=== PATIENT | male | born 1940 | race Asian ===

== ENCOUNTER → 2016-12-14 | Outpatient (CLI) | payer MEDICARE, MEDICAID | LOC: RAD 08:10 | PROVIDERS: ATTEND Physician Assistant | DX: R94.5 Abnormal results of liver function studies (principal) | CPT/HCPCS: 76705; 93976 ==

== ENCOUNTER → 2017-01-23 | Outpatient (CLI) | payer MEDICARE, MEDICAID ==
[2017-01-23 10:37] LABS: ANION GAP 12 (5-19); BLOOD UREA NITROGEN 14 mg/dL (7-20); CALCIUM 9.2 mg/dL (8.4-10.2); CARBON DIOXIDE 27 mmol/L (22-30); CHLORIDE 104 mmol/L (98-107); CHOLESTEROL 139.42 mg/dL (0-200); CREATININE RESULT 0.95 mg/dL (0.52-1.25); Direct HDL 45 mg/dL (>40); GLUCOSE 119 mg/dL (75-110); POTASSIUM 4.4 mmol/L (3.6-5.0); SODIUM 142.8 mmol/L (137-145); TRIGLYCERIDES 94 mg/dL (<150)
[2017-01-23 10:47] LABS: DIRECT LDL 70 mg/dL (<100)
== END ==
LOC: OD 09:33
PROVIDERS: ATTEND Internal Medicine Cardiovascular Disease
DX: I10 Essential (primary) hypertension (principal); E78.00 Pure hypercholesterolemia, unspecified; I25.10 Atherosclerotic heart disease of native coronary artery without angina pectoris
CPT/HCPCS: 36415; 80048; 80061

== ENCOUNTER → 2017-02-07 | Outpatient (CLI) | payer MEDICARE, MEDICAID ==
[~2017-02-07] MED LIST: REGADENOSON INJ 0.4 MG/5 ML DISP.SYRIN IV ONE
--- NOTE | 2017-02-08 10:58 | RADIOLOGY REPORT ---
STRESS TEST REPORT PATIENT NAME: KELSI SIDHU ROOM#: DATE OF SERVICE: 02/07/2017 AGE: 76Y ORDER#: [id number] REFERRING MD: LISETTE MEYERS M.D. INDICATION: Coronary artery disease. PROCEDURE PERFORMED: REST/STRESS SINGLE ISOTOPE CARDIOLITE SPECT IMAGING WITH IV LEXISCAN STRESS AND GATED SPECT IMAGING CLINICAL HISTORY: This 76-year-old [place] male with known coronary artery disease and is status post coronary artery bypass surgery, with continuing cardiac risk factors of diabetes, hypertension and hypercholesterolemia. Current symptomatology includes chest pains. PROCEDURE: The patient received IV Lexiscan of 0.4 mg infused over 10 seconds and flushed. The resting heart rate was 79 bpm and increased to 102 bpm at end infusion. The resting BP was 141/60 and remained same at 142/51 at end infusion. The patient had no symptoms of chest pain but had significant nausea which eventually spontaneously dissipated. Resting 12 lead EKG showed normal sinus rhythm with T inversions in the anterior leads and nonspecific inferior STT changes. At end infusion, no further STT changes were seen. Myocardial perfusion imaging was performed at rest 60 minutes following injection of 9.55 mCi Cardiolite. Ten seconds after the IV Lexiscan injection, patient was injected with 32.6 mCi Cardiolite and flushed. Gated post stress tomographic imaging was performed 60 minutes after stress. FINDINGS: The overall quality of the study is good. The left ventricular cavity is noted to be normal in size on both the rest and stress studies. There is no evidence of abnormal transient ischemic dilatation of the left ventricle. The TID ratio was 1.16. The SPECT images showed no reversible perfusion defect. There was a small, mild, fixed perfusion defect in the basal inferior wall. The gated SPECT imaging showed reduced motion contraction in the basal inferior wall. The left ventricular ejection fraction was normal at 0.67. SUMMARY OF FINDINGS: MYOCARDIAL PERFUSION IMAGING IS ABNORMAL. THERE IS A SMALL, MILD, FIXED PERFUSION DEFECT IN THE BASAL INFERIOR WALL WITH REDUCED MOTION AND CONTRACTION SUGGESTING PREVIOUS MO. THERE IS NO REVERSIBLE PERFUSION DEFECT. OVERALL LEFT VENTRICULAR SYSTOLIC FUNCTION IS NORMAL AT 67% AND THERE WAS MILD REDUCED MOTION CONTRACTION IN THE BASAL INFERIOR WALL CONSISTENT WITH OLD INFERIOR MO IN THE BASAL REGION. NO PRIOR STUDIES FOR COMPARISON. INTERPRETING PHYSICIAN: LISETTE MEYERS M.D. /: KALINA TT: [id number] ID: [id number] /: [id number] TD: [id number] JOB: [id number] cc:LISETTE MEYERS M.D. > PAULETTE
== END ==
LOC: RAD 05:53
PROVIDERS: ATTEND Internal Medicine Cardiovascular Disease
DX: I25.10 Atherosclerotic heart disease of native coronary artery without angina pectoris (principal); Z95.1 Presence of aortocoronary bypass graft; I10 Essential (primary) hypertension; E78.00 Pure hypercholesterolemia, unspecified
CPT/HCPCS: 93017; 78452; A9500; J2785; Q9969

== ENCOUNTER → 2017-10-10 | Outpatient (CLI) | payer MEDICARE, MEDICAID ==
--- NOTE | 2017-10-10 08:59 | RADIOLOGY REPORT (SQ) ---
EXAM DESCRIPTION: CAROTID DOPPLER COMPLETED DATE/TIME: 10/10/2017 8:43 am REASON FOR STUDY: BRUIT LEFT R09.89 OTH SYMPTOMS AND SIGNS INVOLVING THE CIRC AND RESP SY COMPARISON: None. TECHNIQUE: Grayscale ultrasound, Doppler velocity and spectra, and color Doppler images acquired of the extra-cranial carotid and vertebral arteries. Images stored on PACS. LIMITATIONS: None. FINDINGS: RIGHT CAROTID CCA Velocities: Within normal limits. ICA Velocities Peak systolic 0.62 m/s. End diastolic 0.23 m/s. Proximal ICA/CCA peak systolic ratio 1.0. Scattered plaque. LEFT CAROTID CCA Velocities: Within normal limits. ICA Velocities Peak systolic 04/10/2008 m/s. End diastolic 0.23 m/s. Proximal ICA/CCA peak systolic ratio 1.0. Scattered plaque. VERTEBRAL ARTERIES: Antegrade flow. Normal waveforms. SUBCLAVIAN ARTERIES: No finding. OTHER: No other significant finding. IMPRESSION: NO HEMODYNAMICALLY SIGNIFICANT STENOSIS. COMMENT: Quality ID #[id number]: Velocity criteria are extrapolated from the diameter data as defined by t he Society of Radiologists in Ultrasound Consensus Conference. Radiology 2003: 229; 340-346. TECHNICAL DOCUMENTATION: JOB ID: [id number] [employer]- All Rights Reserved
== END ==
LOC: SP 07:24
PROVIDERS: ATTEND Family Medicine
DX: R09.89 Other specified symptoms and signs involving the circulatory and respiratory systems (principal)
CPT/HCPCS: 93880

== ENCOUNTER → 2017-12-19 | Outpatient (CLI) | payer MEDICARE, MEDICAID ==
--- NOTE | 2017-12-19 10:27 | RADIOLOGY REPORT (SQ) ---
EXAM DESCRIPTION: CHEST PA/LATERAL COMPLETED DATE/TIME: 12/19/2017 8:19 am REASON FOR STUDY: COUGH COMPARISON: CT chest dated 11/24/2015. EXAM PARAMETERS: NUMBER OF VIEWS: two views TECHNIQUE: Digital Frontal and Lateral radiographic views of the chest acquired. RADIATION DOSE: NA LIMITATIONS: none FINDINGS: LUNGS AND PLEURA: Chronic interstitial changes. Scarring in the right upper lobe. No inf iltrates, masses or pneumothorax. No pleural effusion. MEDIASTINUM AND HILAR STRUCTURES: No masses or contour abnormalities. HEART AND VASCULAR STRUCTURES: Heart normal size. No evidence for failure. BONES: No acute findings. HARDWARE: Sternotomy wires and coronary bypass markers. OTHER: No other significant finding. IMPRESSION: CHRONIC SCARRING. NO ACUTE RADIOGRAPHIC FINDING IN THE CHEST. TECHNICAL DOCUMENTATION: JOB ID: [id number] [employer]- All Rights Reserved
== END ==
LOC: OD 08:06
PROVIDERS: ATTEND Family Medicine
DX: R05 Cough (principal)
CPT/HCPCS: 71046

== ENCOUNTER 2018-01-18 02:37 | Inpatient (IN) | payer MEDICARE, MEDICAID ==
[2018-01-18] MEDS ORDERED: ACETAMINOPHEN 325 MG TABLET PO ONE (02:58)
[2018-01-18] MEDS ORDERED: METHYLPREDNISOLONE INJ 125 MG/2 ML SDV IV ONE (03:01)
--- NOTE | 2018-01-18 03:01 | ER Document Report ---
ED General - General Chief Complaint: Headache Stated Complaint: DIZZINESS Time Seen by Provider: 01/18/18 02:52 Notes: Patient is a 77-year-old male that comes emergency department for symptoms that started tonight including shortness of breath, chills, patient was complaining of headache, and weakness. Patient states symptoms all started today. He denies vomiting, abdominal pain, chest pain, focal numbness or weakness, visual changes, sore throat. Past medical history of COPD, CABG, type 2 diabetes, hypertension, hyperlipidemia. Comes from home with his . He is not on oxygen at home, uses nebulizer occasionally, was given inhaler dose and nitroglycerin by his before arrival. TRAVEL OUTSIDE OF THE [place] IN LAST 30 DAYS: No - Related Data Allergies/Adverse Reactions: No Known Allergies Allergy (Unverified 01/09/13 07:19) Past Medical History - General Information source: Patient - Social History Smoking Status: Never Smoker Frequency of alcohol use: None Drug Abuse: None Lives with: Family Family History: Reviewed & Not Pertinent - Past Medical History Cardiac Medical History: Reports: Hx Coronary Artery Disease, Hx Heart Attack Pulmonary Medical History: Reports: Hx COPD Endocrine Medical History: Reports: Hx Diabetes Mellitus Type 2 Past Surgical History: Reports: Hx Open Heart Surgery - Immunizations Immunizations up to date: Yes Review of Systems - Review of Systems Constitutional: See HPI EENT: No symptoms reported Cardiovascular: See HPI Respiratory: See HPI Gastrointestinal: No symptoms reported Genitourinary: No symptoms reported Male Genitourinary: No symptoms reported Musculoskeletal: No symptoms reported Skin: No symptoms reported Hematologic/Lymphatic: No symptoms reported Neurological/Psychological: See HPI Physical Exam - Vital signs Vitals: Temp Pulse Resp BP Pulse Ox 98.2 F 138 H 26 H 133/62 H 92 01/18/18 02:45 01/18/18 02:45 01/18/18 02:45 01/18/18 02:45 01/18/18 02:45 - General General appearance: Other - Patient ill in appearance, breathing rapidly - HEENT Head: Normocephalic, Atraumatic Eyes: Normal Conjunctiva: Normal Extraocular movements intact: Yes Eyelashes: Normal Pupils: PERRL Nasal: Normal Mouth/Lips: Normal Mucous membranes: Normal Pharynx: Normal Neck: Normal - Respiratory Respiratory status: Respiratory distress, Labored, Tachypnea Breath sounds: Other - Rails heard in the left lower lobe with decreased breath sounds in the left lower lobe. Otherwise normal lung sounds on auscultation - Cardiovascular Rhythm: Regular, Tachycardia Heart sounds: Normal auscultation, S1 appreciated, S2 appreciated Murmur: No Normal capillary refill: Yes - Abdominal Inspection: Normal Tenderness: Nontender. No: Tender, Guarding - Back Back: Normal, Nontender. No: Tender - Extremities General upper extremity: Normal inspection, Nontender, Normal strength, Normal temperature General lower extremity: Normal inspection, Nontender, Normal strength, Normal temperature. 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 Consistent with pneumonia, placed on oxygen immediately, on 3 L nasal cannula he was 88% on room air, calling for BiPAP. Placing 2 IVs. Treating fever, suspect sepsis pneumonia. Workup pending. 01/18/18 03:35 CBC shows leukocytosis with elevation of neutrophils but no bandemia. Chemistry unremarkable. Troponin is not elevated. Lactic acid elevated. Venous blood gas is unremarkable. Tachycardia. Chest x-ray still pending. Giving Levaquin for suspected pneumonia. Patient was given a dose of Solu- Medrol because of COPD history. Patient was reevaluated at bedside, he states he is breathing much better, is oxygen saturation is now 95%, heart rate 108, blood pressure still stable. He states his headache is completely gone. He is slightly diaphoretic but not in distress, appears to have broken his fever. Tachypnea almost resolved, patient appears much more comfortable, good capillary refill. 01/18/18 03:55 Chest x-ray confirming left lower lobe pneumonia. Called and spoke with Dr. Chávez, patient's primary provider, patient will be admitted to [facility]. Discussed with family, they state understanding and agreement. - Vital Signs Vital signs: Temp Pulse Resp BP Pulse Ox 102.2 F H 138 H 26 H 142/76 H 95 01/18/18 03:00 01/18/18 02:45 01/18/18 03:19 01/18/18 03:01 01/18/18 03:13 - Laboratory Result Diagrams: 01/18/18 03:00 01/18/18 03:00 Laboratory results interpreted by me: 01/18/18 01/18/18 03:00 03:00 WBC 11.3 H Plt Count 111 L Seg Neutrophils % 83.6 H Lymphocytes % 9.2 L Absolute Neutrophils 9.5 H Glucose 185 H Total Bilirubin 1.9 H Critical Care Note - Critical Care Note Total time excluding time spent on procedures (mins): 31 - Respiratory distress , suspected sepsis Comments: Please allow 31 minutes of critical care time for evaluation and management of patient with respiratory distress, pneumonia, tachycardia, hypoxia. Multiple re -evaluations, treatments including oxygen, BiPAP, antibiotics, steroids. Consultation and admission to the hospital. Discharge - Discharge Clinical Impression: Difficulty breathing, Hypoxia, Tachycardia Fever Qualifiers: Fever type: unspecified Qualified Code(s): R50.9 - Fever, unspecified Pneumonia Qualifiers: Pneumonia type: due to unspecified organism Laterality: left Lung location: lower lobe of lung Qualified Code(s): J18.1 - Lobar pneumonia, unspecified organism Condition: Fair Disposition: ADMITTED INPATIENT Admitting Provider: Chávez Unit Admitted: [facility]
[2018-01-18] MEDS ORDERED: LEVOFLOXACIN 750 MG/D5W RTU 750 MG/150 ML RTUPB IV ONE (03:06)
[2018-01-18 03:18] LABS: VENOUS BLOOD BASE EXCESS 0.1 mmol/L; VENOUS BLOOD HCO3 24.7 mmol/L (20-32); VENOUS BLOOD PCO2 40.4 mmHg (35-63); VENOUS BLOOD PH 7.41 (7.30-7.42)
[2018-01-18 03:19] LABS: ABSOLUTE BASOPHILS # (AUTO) 0.1 10^3/uL (0.0-0.2); ABSOLUTE EOSINOPHILS # (AUTO) 0.1 10^3/uL (0.0-0.6); ABSOLUTE MONOCYTES (AUTO) 0.7 10^3/uL (0.1-1.4); ABSOLUTE NEUT (AUTO) 9.5 10^3/uL (1.7-8.2); BASOPHILS % (AUTO) 0.6 % (0-2); EOSINOPHILS % (AUTO) 0.8 % (0-6); HEMATOCRIT 46.5 % (37.9-51.0); HEMOGLOBIN 15.7 g/dL (13.5-17.0); LYMPHOCYTES % (AUTO) 9.2 % (13-45); MEAN CORPUSCULAR HEMOGLOBIN 31.5 pg (27.0-33.4); MEAN CORPUSCULAR HGB CONC 33.7 g/dL (32.0-36.0); MEAN CORPUSCULAR VOLUME 93 fl (80-97); MONOCYTES % (AUTO) 5.8 % (3-13); PLATELET COUNT 111 10^3/uL (150-450); RED BLOOD COUNT 4.98 10^6/uL (4.35-5.55); RED CELL DISTRIBUTION WIDTH 13.9 % (11.5-14.0); SEGMENTED NEUTROPHILS % (AUTO) 83.6 % (42-78); TOTAL CELLS COUNTED % (AUTO) 100 %; WHITE BLOOD COUNT 11.3 10^3/uL (4.0-10.5)
[2018-01-18 03:29] LABS: INTERNATIONAL RATION (INR) 0.93; PROTHROMBIN TIME 13.1 SEC (11.4-15.4)
[2018-01-18 03:31] LABS: ALANINE AMINOTRANSFERASE 31 U/L (21-72); ALBUMIN 4.5 g/dL (3.5-5.0); ALKALINE PHOSPHATASE 102 U/L (38-126); ANION GAP 12 (5-19); ASPARTATE AMINO TRANSFERASE 20 U/L (17-59); BILIRUBIN,DIRECT 0.2 mg/dL (0.0-0.4); BILIRUBIN,TOTAL 1.9 mg/dL (0.2-1.3); BLOOD UREA NITROGEN 19 mg/dL (7-20); CALCIUM 9.4 mg/dL (8.4-10.2); CARBON DIOXIDE 24 mmol/L (22-30); CHLORIDE 103 mmol/L (98-107); GLUCOSE 185 mg/dL (75-110); POTASSIUM 4.5 mmol/L (3.6-5.0); SODIUM 139.3 mmol/L (137-145); TOTAL PROTEIN 7.3 g/dL (6.3-8.2)
--- NOTE | 2018-01-18 03:48 | RADIOLOGY REPORT (SQ) ---
EXAM DESCRIPTION: CHEST SINGLE VIEW CLINICAL HISTORY: 77 years Male, shortness of breath, hypoxia, chills COMPARISON: 12/19/17. NUMBER OF VIEWS/TECHNIQUE: 1/AP LIMITATIONS: None. FINDINGS: Moderate airspace patchiness of the left lower lung, normal cardiac silhouette, atherosclerosis, and mild dextroconvexity. Sternotomy. IMPRESSION: Moderate left lower lobar pneumonia.
--- NOTE | 2018-01-18 07:18 | EKG REPORT ---
SEVERITY:- ABNORMAL ECG - SINUS RHYTHM ATRIAL PREMATURE COMPLEX BIPHASIC T WAVES ANTERIOR LEADS, NONSPECIFIC, CLINICAL CORRELATION NEEDED. : Confirmed by: Evaristo Pretty MD 18-Jan-2018 07:18:05
--- NOTE | 2018-01-18 07:19 | EKG REPORT ---
SEVERITY:- ABNORMAL ECG - SINUS TACHYCARDIA PROBABLE LEFT ATRIAL ABNORMALITY CONSIDER RIGHT VENTRICULAR HYPERTROPHY BORDERLINE INFERIOR Q WAVES NONSPECIFIC BIPHASIC T WAVES ANTERIOR LEADS : Confirmed by: Evaristo Pretty MD 18-Jan-2018 07:19:03
[2018-01-18] MEDS ORDERED: GUAIFENESIN SYRP 200 MG/10 ML UDC PO PRN (08:10)
[2018-01-18] MEDS ORDERED: ACETAMINOPHEN 325 MG TABLET PO PRN (08:10)
[2018-01-18] MEDS ORDERED: GLUCAGON,HUMAN RECOMB 1 MG INJ IM PRN (08:14)
[2018-01-18] MEDS ORDERED: INSULIN LISPRO 100 UNIT/ML 3 ML VIAL SUBCUT PRN (08:14)
[2018-01-18] MEDS ORDERED: DEXTROSE 50%-WATER 25 GM/50 ML DISP.SYRIN IV PRN ×2 (08:14)
[2018-01-18] MEDS ORDERED: DEXTROSE 40% GEL 15 GM TUBE PO PRN ×2 (08:14)
[2018-01-18] MEDS ORDERED: CEFTRIAXONE 1 GM/D5W RTU 1 GM/50 ML RTUPB IV SCH (09:00)
[2018-01-18] MEDS ORDERED: METFORMIN HCL 500 MG TABLET PO ONE (09:00)
[2018-01-18] MEDS: FAMOTIDINE 20 MG TABLET PO SCH ×2 (09:12→21:29)
[2018-01-18] MEDS: SITAGLIPTIN PHOSPHATE 50 MG TABLET PO SCH (09:12)
[2018-01-18] MEDS: ASPIRIN 81 MG TABLET, CHEWABLE PO SCH (09:12)
[2018-01-18] MEDS: LISINOPRIL 5 MG TABLET PO SCH (09:12)
[2018-01-18] MEDS: METOPROLOL TARTRATE 25 MG TABLET PO SCH (09:12)
[2018-01-18] MEDS: IPRATROPIUM/ALBUTEROL 0.5-2.5 MG/3 ML AMPUL NEB SCH ×3 (09:29→20:07)
--- NOTE | 2018-01-18 09:34 | RADIOLOGY REPORT (SQ) ---
EXAM DESCRIPTION: CT CHEST WITHOUT COMPLETED DATE/TIME: 01/18/2018 9:04 am REASON FOR STUDY: pnemonia/pulmonary nodule COMPARISON: Chest x-ray dated 01/18/2018 and 12/19/2017. Chest CT dated 11/24/2015. TECHNIQUE: CT scan performed of the chest without intravenous contrast. Images reviewed with lung, soft tissue and bone windows. Reconstructed coronal and sagittal MPR images reviewed. All images st ored on PACS. All CT scanners at this facility use dose modulation, iterative reconstruction, and/or weight based d osing when appropriate to reduce radiation dose to as low as reasonably achievable (ALARA). [facility]: Dose Right [facility]: CareDose [facility]: Dose Right [facility]: Teradose 4D [facility]: Smart CoverMyMeds RADIATION DOSE: CT Rad equipment meets quality standard of care and radiation dose reduction techniq ues were employed. CTDIvol: 4.7 mGy. DLP: 177 mGy-cm. mGy. LIMITATIONS: No technical limitations. FINDINGS: LUNGS AND PLEURA: Emphysematous changes. Chronic scarring in the right apex with stable p artially calcified nodule. Scattered airspace disease in the posterior left lung base. No pleural e ffusion, pleural thickening, or pleural calcification. HILAR AND MEDIASTINAL STRUCTURES: No identified masses or abnormal nodes. No obvious aneurysm. HEART AND VASCULAR STRUCTURES: No aneurysm. No pericardial effusion. UPPER ABDOMEN: No significant findings. Limited exam. THYROID AND OTHER SOFT TISSUES: No masses. No adenopathy. BONES: No significant finding. HARDWARE: Sternotomy wires and coronary bypass markers. OTHER: No other significant findings. IMPRESSION: EMPHYSEMATOUS CHANGES. CHRONIC SCARRING IN THE RIGHT LUNG APEX. SCATTERED AIRSPACE DIS EASE IN THE POSTERIOR LEFT LUNG BASE, SUSPICIOUS FOR INFILTRATE SECONDARY TO PNEUMONIA. TECHNICAL DOCUMENTATION: JOB ID: [id number] Quality ID # [id number]: Final reports with documentation of one or more dose reduction techniques (e.g., Au tomated exposure control, adjustment of the mA and/or kV according to patient size, use of iterative reconstruction technique) 2010 [employer]- All Rights Reserved Reading location - IP/workstation name: [email or web address]
[2018-01-18] MEDS ORDERED: LEVOFLOXACIN 500 MG/D5W RTU 500 MG/100 ML RTUPB IV SCH (10:00)
[2018-01-18] MEDS: TIOTROPIUM BROMIDE DPI 5 CAP/KIT (18 MCG/CAP) IH SCH (10:23)
[2018-01-18] MEDS: FLUTICASONE/SALMETEROL DISKUS 250-50 MCG/DOSE IH SCH ×2 (10:23→21:29)
[2018-01-18] MEDS: ENOXAPARIN SODIUM INJ 40 MG/0.4 ML DISP.SYRIN SUBCUT SCH (10:24)
[2018-01-18] MEDS: CEFTRIAXONE SODIUM 1,000 MG in NORMAL SALINE 100 ML IV SCH (10:34)
--- NOTE | 2018-01-18 13:18 | PDOC H&P ---
History of Present Illness Admission Date/PCP: 01/18/18 04:04 STEPHANIE PERES MD Patient complains of: Fever and chills History of Present Illness: KELSI SIDHU is a 77 year old male This is a 77-year-old male with a significant history of the type 2 diabetes mellitus history of the hypertension's hyperlipidemia and history of COPD and a history of coronary artery disease came to the emergency department with a complaint of a cough congestion's and the fever the temperature is about 100 and the emergency department patient was diagnosed with a pneumoniaPatient initially was in respiratory distress and a put on the BiPAP patient is currently on nasal cannula doing well Patient's denied any chest pain denied any shortness of the breath Patient's a used to see a Dr. Blanco in the past Patient also see a Dr. Rodriguezary artery disease Patient's denied any nausea no vomiting Patient's denied any headache Past Medical History Cardiac Medical History: Reports: Coronary Artery Disease, Myocardial Infarction , Hyperlipidema Pulmonary Medical History: Reports: Chronic Obstructive Pulmonary Disease (COPD) Endocrine Medical History: Reports: Diabetes Mellitus Type 2 GI Medical History: Reports: Gastroesophageal Reflux Disease Psychiatric Medical History: Denies: Depression Past Surgical History Past Surgical History: Reports: Cardiac Catheterization, Coronary Artery Bypass Graft Social History Lives with: Family Smoking Status: Never Smoker Frequency of Alcohol Use: None Hx Recreational Drug Use: No Drugs: None Hx Prescription Drug Abuse: No Family History Family History: Reviewed & Not Pertinent Parental Family History Reviewed: Yes Children Family History Reviewed: Yes Sibling(s) Family History Reviewed.: Yes Medication/Allergy Home Medications: Albuterol Sulfate [Proair HFA] 1 puff IH QIDP PRN 01/18/18 Aspirin [Adult Low Dose Aspirin EC] 81 mg PO DAILY 01/18/18 Atorvastatin Calcium [Lipitor 40 mg Tablet] 40 mg PO DAILY 01/18/18 Cholecalciferol (Vitamin D3) [Vitamin D3] 2,000 unit PO DAILY 01/18/18 Fluticasone/Salmeterol [Advair 250-50 Diskus 28 dose] 1 puff IH Q12 01/18/18 Ipratropium/Albuterol Sulfate [Duoneb 3 ml Ampul] 3 ml NEB [id number] PRN 01/18/18 Lisinopril [Zestril] 5 mg PO DAILY 01/18/18 Metformin HCl [Glucophage 500 mg Tablet] 500 mg PO BID 01/18/18 Metoprolol Tartrate [Lopressor 50 mg Tablet] 50 mg PO BID 01/18/18 Nitroglycerin [Nitrolingual] 1 spray SL Q5MP PRN 01/18/18 Sitagliptin Phosphate [Januvia] 100 mg PO DAILY 01/18/18 Tiotropium [place] [Spiriva Handihaler 18 mcg/dose (30 Dose)] 18 mcg IH DAILY Allergies/Adverse Reactions: No Known Allergies Allergy (Unverified 01/09/13 07:19) Review of Systems Constitutional: PRESENT: chills, fever(s). ABSENT: headache(s), weight gain, weight loss Eyes: ABSENT: visual disturbances Ears: ABSENT: hearing changes Cardiovascular: ABSENT: chest pain, dyspnea on exertion, edema, orthropnea, palpitations Respiratory: PRESENT: cough, dyspnea. ABSENT: hemoptysis Gastrointestinal: ABSENT: abdominal pain, constipation, diarrhea, hematemesis, hematochezia, nausea, vomiting Genitourinary: ABSENT: dysuria, hematuria Musculoskeletal: ABSENT: joint swelling Integumentary: ABSENT: rash, wounds Neurological: ABSENT: abnormal gait, abnormal speech, confusion, dizziness, focal weakness, syncope Psychiatric: ABSENT: anxiety, depression, homidical ideation, suicidal ideation Endocrine: ABSENT: cold intolerance, heat intolerance, menstrual abnormalities, polydipsia, polyuria Hematologic/Lymphatic: ABSENT: easy bleeding, easy bruising, lymphadenopathy Physical Exam Vital Signs: Temp Pulse Resp BP Pulse Ox 98.4 F 80 16 117/62 96 01/18/18 07:53 01/18/18 09:30 01/18/18 09:30 01/18/18 07:53 01/18/18 09:30 Intake & Output 01/17/18 01/18/18 01/19/18 06:59 06:59 06:59 Weight 61.6 kg General appearance: PRESENT: no acute distress, well-developed, well-nourished Head exam: PRESENT: atraumatic, normocephalic Eye exam: PRESENT: conjunctiva pink, EOMI, PERRLA. ABSENT: scleral icterus Ear exam: PRESENT: normal external ear exam Mouth exam: PRESENT: moist, tongue midline Neck exam: PRESENT: full ROM. ABSENT: carotid bruit, JVD, lymphadenopathy, thyromegaly Respiratory exam: PRESENT: clear to auscultation eve Cardiovascular exam: PRESENT: RRR. ABSENT: diastolic murmur, rubs, systolic murmur Pulses: PRESENT: normal dorsalis pedis pul, +2 pedal pulses bilateral Vascular exam: PRESENT: normal capillary refill GI/Abdominal exam: PRESENT: normal bowel sounds, soft. ABSENT: distended, guarding, mass, organolmegaly, rebound, tenderness Rectal exam: PRESENT: deferred Extremities exam: ABSENT: pedal edema Neurological exam: PRESENT: alert, awake, oriented to person, oriented to place , oriented to time, oriented to situation, CN II-XII grossly intact. ABSENT: motor sensory deficit Psychiatric exam: PRESENT: appropriate affect, normal mood. ABSENT: homicidal ideation, suicidal ideation Skin exam: PRESENT: dry, intact, warm. ABSENT: cyanosis, rash Results Impressions: Chest CT 01/18/18 00:00 IMPRESSION: EMPHYSEMATOUS CHANGES. CHRONIC SCARRING IN THE RIGHT LUNG APEX. SCATTERED AIRSPACE DISEASE IN THE POSTERIOR LEFT LUNG BASE, SUSPICIOUS FOR INFILTRATE SECONDARY TO PNEUMONIA. Chest X-Ray 01/18/18 02:58 IMPRESSION: Moderate left lower lobar pneumonia. Assessment & Plan - Diagnosis (1) Pneumonia Qualifiers: Pneumonia type: due to unspecified organism Laterality: left Lung location: lower lobe of lung Qualified Code(s): J18.1 - Lobar pneumonia, unspecified organism Is this a current diagnosis for this admission?: Yes Plan: Start the patient on IV Rocephin and Levaquin (2) Respiratory distress Is this a current diagnosis for this admission?: Yes Plan: Currently off the BiPAP and oxygen and doing well (3) Fever Qualifiers: Fever type: unspecified Qualified Code(s): R50.9 - Fever, unspecified Is this a current diagnosis for this admission?: Yes Plan: Due to the pneumonia (4) Type 2 diabetes mellitus Qualifiers: Diabetes mellitus care home insulin use: without manager terminal use Is this a current diagnosis for this admission?: Yes Plan: Continues to current medication and sliding scale (5) Hypertension Qualifiers: Hypertension type: essential hypertension Qualified Code(s): I10 - Essential (primary) hypertension Is this a current diagnosis for this admission?: Yes Plan: Currently stable (6) Coronary artery disease Qualifiers: Coronary Disease-Associated Artery/Lesion type: [place] artery Is this a current diagnosis for this admission?: Yes Plan: Continues to monitor the patient (7) Chronic obstructive pulmonary disease Qualifiers: COPD type: chronic bronchitis Is this a current diagnosis for this admission?: Yes Plan: Continues to nebulizer treatments currently hold the steroid because patients does not have any wheezing (8) Sleep apnea Qualifiers: Sleep apnea type: unspecified type Qualified Code(s): G47.30 - Sleep apnea , unspecified Is this a current diagnosis for this admission?: Yes Plan: Continues uses CPAP - Time Time Spent: 30 to 50 Minutes Medications reviewed and adjusted accordingly: Yes Anticipated discharge: Other Within: Other - Inpatient Certification Medical Necessity: Need Close Monitoring Due to Risk of Patient Decompensation, Need for IV Antibiotics Post Hospital Care: D/C Rn House Supervisor Documentation - Plan Summary Plan Summary: Start the patient on IV antibiotic discussed with the patient and the regarding the patient's current conditions
[2018-01-18] MEDS: OXYCODONE-ACETAMINOPHEN 5-325 MG TABLET PO SCH ×2 (15:10→21:29)
[2018-01-18] MEDS: METFORMIN HCL 500 MG TABLET PO SCH (16:53)
[2018-01-18] MEDS ORDERED: (PENDING PHARMACY ID) (Metformin Hcl [Glucophage Xr 500 Mg Tablet] 500 MG) PO SCH (18:00)
[2018-01-19] MEDS: IPRATROPIUM/ALBUTEROL 0.5-2.5 MG/3 ML AMPUL NEB SCH ×4 (01:25→20:01)
[2018-01-19] MEDS: OXYCODONE-ACETAMINOPHEN 5-325 MG TABLET PO SCH ×2 (05:19→15:27)
[2018-01-19 05:24] LABS: ABSOLUTE MONOCYTES (AUTO) 1.4 10^3/uL (0.1-1.4); ABSOLUTE NEUT (AUTO) 12.3 10^3/uL (1.7-8.2); BASOPHILS % (AUTO) 0.3 % (0-2); HEMATOCRIT 41.5 % (37.9-51.0); HEMOGLOBIN 14.1 g/dL (13.5-17.0); LYMPHOCYTES % (AUTO) 6.5 % (13-45); MEAN CORPUSCULAR HEMOGLOBIN 31.6 pg (27.0-33.4); MEAN CORPUSCULAR VOLUME 93 fl (80-97); MONOCYTES % (AUTO) 9.4 % (3-13); PLATELET COUNT 105 10^3/uL (150-450); RED BLOOD COUNT 4.47 10^6/uL (4.35-5.55); SEGMENTED NEUTROPHILS % (AUTO) 83.8 % (42-78); TOTAL CELLS COUNTED % (AUTO) 100 %; WHITE BLOOD COUNT 14.8 10^3/uL (4.0-10.5)
[2018-01-19 05:45] LABS: ALANINE AMINOTRANSFERASE 25 U/L (21-72); ALBUMIN 3.4 g/dL (3.5-5.0); ALKALINE PHOSPHATASE 55 U/L (38-126); ANION GAP 11 (5-19); ASPARTATE AMINO TRANSFERASE 17 U/L (17-59); BILIRUBIN,DIRECT 0.4 mg/dL (0.0-0.4); BILIRUBIN,TOTAL 1.5 mg/dL (0.2-1.3); BLOOD UREA NITROGEN 29 mg/dL (7-20); CARBON DIOXIDE 21 mmol/L (22-30); CHLORIDE 107 mmol/L (98-107); GLUCOSE 121 mg/dL (75-110); SODIUM 139.3 mmol/L (137-145); TOTAL PROTEIN 6.5 g/dL (6.3-8.2)
--- NOTE | 2018-01-19 09:11 | PDOC PROGRESS REPORT ---
Subjective Progress Note for:: 01/19/18 Subjective:: Patient is currently doing fair Patient's denied any chest pain denied any shortness of the breath Patients walk with his yesterday in the hallway without any problem Reason For Visit: PNEUMONIA Physical Exam Vital Signs: Temp Pulse Resp BP Pulse Ox 97.7 F 70 16 133/65 H 95 01/19/18 07:28 01/19/18 08:31 01/19/18 08:31 01/19/18 07:28 01/19/18 08:31 Intake & Output 01/18/18 01/19/18 01/20/18 06:59 06:59 06:59 Intake Total 446 Output Total 0 Balance 446 Weight 61.6 kg 61.4 kg General appearance: PRESENT: no acute distress, well-developed, well-nourished Head exam: PRESENT: atraumatic, normocephalic Eye exam: PRESENT: conjunctiva pink, EOMI, PERRLA. ABSENT: scleral icterus Ear exam: PRESENT: normal external ear exam Mouth exam: PRESENT: moist, tongue midline Neck exam: PRESENT: full ROM. ABSENT: carotid bruit, JVD, lymphadenopathy, thyromegaly Respiratory exam: PRESENT: clear to auscultation eve Cardiovascular exam: PRESENT: RRR. ABSENT: diastolic murmur, rubs, systolic murmur Pulses: PRESENT: normal dorsalis pedis pul, +2 pedal pulses bilateral Vascular exam: PRESENT: normal capillary refill GI/Abdominal exam: PRESENT: normal bowel sounds, soft. ABSENT: distended, guarding, mass, organolmegaly, rebound, tenderness Rectal exam: PRESENT: deferred Extremities exam: ABSENT: pedal edema Neurological exam: PRESENT: alert, awake, oriented to person, oriented to place , oriented to time, oriented to situation, CN II-XII grossly intact. ABSENT: motor sensory deficit Psychiatric exam: PRESENT: appropriate affect, normal mood. ABSENT: homicidal ideation, suicidal ideation Skin exam: PRESENT: dry, intact, warm. ABSENT: cyanosis, rash Results Laboratory Results: 01/19/18 05:07 01/19/18 05:07 01/19/18 01/19/18 05:07 05:07 WBC 14.8 H RBC 4.47 Hgb 14.1 Hct 41.5 MCV 93 MCH 31.6 MCHC 34.0 RDW 14.0 Plt Count 105 L Seg Neutrophils % 83.8 H Lymphocytes % 6.5 L Monocytes % 9.4 Eosinophils % 0.0 Basophils % 0.3 Absolute Neutrophils 12.3 H Absolute Lymphocytes 1.0 Absolute Monocytes 1.4 Absolute Eosinophils 0.0 Absolute Basophils 0.0 Sodium 139.3 Potassium 4.0 Chloride 107 Carbon Dioxide 21 L Anion Gap 11 BUN 29 H Creatinine 1.11 Est GFR ( Amer) > 60 Est GFR (Non-Af Amer) > 60 Glucose 121 H Calcium 9.0 Total Bilirubin 1.5 H AST 17 ALT 25 Alkaline Phosphatase 55 Total Protein 6.5 Albumin 3.4 L 01/19/18 05:07 NT-Pro-B Natriuret Pep 489 H Impressions: Chest CT 01/18/18 00:00 IMPRESSION: EMPHYSEMATOUS CHANGES. CHRONIC SCARRING IN THE RIGHT LUNG APEX. SCATTERED AIRSPACE DISEASE IN THE POSTERIOR LEFT LUNG BASE, SUSPICIOUS FOR INFILTRATE SECONDARY TO PNEUMONIA. Chest X-Ray 01/18/18 02:58 IMPRESSION: Moderate left lower lobar pneumonia. Assessment & Plan - Diagnosis (1) Pneumonia Qualifiers: Pneumonia type: due to unspecified organism Laterality: left Lung location: lower lobe of lung Qualified Code(s): J18.1 - Lobar pneumonia, unspecified organism Is this a current diagnosis for this admission?: Yes Plan: Start the patient on IV Rocephin and Levaquin (2) Respiratory distress Is this a current diagnosis for this admission?: Yes Plan: Currently off the BiPAP and oxygen and doing well (3) Fever Qualifiers: Fever type: unspecified Qualified Code(s): R50.9 - Fever, unspecified Is this a current diagnosis for this admission?: Yes Plan: Due to the pneumonia (4) Type 2 diabetes mellitus Qualifiers: Diabetes mellitus assisted insulin use: without exterminator helper use Is this a current diagnosis for this admission?: Yes Plan: Continues to current medication and sliding scale (5) Hypertension Qualifiers: Hypertension type: essential hypertension Qualified Code(s): I10 - Essential (primary) hypertension Is this a current diagnosis for this admission?: Yes Plan: Currently stable (6) Coronary artery disease Qualifiers: Coronary Disease-Associated Artery/Lesion type: [place] artery Is this a current diagnosis for this admission?: Yes Plan: Continues to monitor the patient (7) Chronic obstructive pulmonary disease Qualifiers: COPD type: chronic bronchitis Is this a current diagnosis for this admission?: Yes Plan: Continues to nebulizer treatments currently hold the steroid because patients does not have any wheezing (8) Sleep apnea Qualifiers: Sleep apnea type: unspecified type Qualified Code(s): G47.30 - Sleep apnea , unspecified Is this a current diagnosis for this admission?: Yes Plan: Continues uses CPAP - Time Time Spent with patient: 15-24 minutes Medications reviewed and adjusted accordingly: Yes Anticipated discharge: Other Within: Other - Inpatient Certification Medical Necessity: Need Close Monitoring Due to Risk of Patient Decompensation, Need for IV Antibiotics Post Hospital Care: D/C [place] Documentation - Plan Summary Plan Summary: Continues to IV antibiotic and the weekend discussed with the patient and the
[2018-01-19] MEDS: SITAGLIPTIN PHOSPHATE 50 MG TABLET PO SCH (09:22)
[2018-01-19] MEDS: ASPIRIN 81 MG TABLET, CHEWABLE PO SCH (09:22)
[2018-01-19] MEDS: FAMOTIDINE 20 MG TABLET PO SCH ×2 (09:22→22:51)
[2018-01-19] MEDS: METOPROLOL TARTRATE 25 MG TABLET PO SCH (09:22)
[2018-01-19] MEDS: METFORMIN HCL 500 MG TABLET PO SCH ×2 (09:24→18:29)
[2018-01-19] MEDS: LISINOPRIL 5 MG TABLET PO SCH (09:24)
[2018-01-19] MEDS: TIOTROPIUM BROMIDE DPI 5 CAP/KIT (18 MCG/CAP) IH SCH (09:26)
[2018-01-19] MEDS: FLUTICASONE/SALMETEROL DISKUS 250-50 MCG/DOSE IH SCH ×2 (09:26→22:52)
[2018-01-19] MEDS: LEVOFLOXACIN 250 MG/D5W RTU 250 MG/50 ML RTUPB IV SCH (09:27)
[2018-01-19] MEDS: CEFTRIAXONE SODIUM 1,000 MG in NORMAL SALINE 100 ML IV SCH (09:28)
[2018-01-19] MEDS: ENOXAPARIN SODIUM INJ 40 MG/0.4 ML DISP.SYRIN SUBCUT SCH (09:28)
[2018-01-20] MEDS: OXYCODONE-ACETAMINOPHEN 5-325 MG TABLET PO SCH ×3 (01:35→14:05)
[2018-01-20] MEDS: IPRATROPIUM/ALBUTEROL 0.5-2.5 MG/3 ML AMPUL NEB SCH ×4 (01:52→19:53)
[2018-01-20 05:26] LABS: ABSOLUTE EOSINOPHILS # (AUTO) 0.1 10^3/uL (0.0-0.6); ABSOLUTE MONOCYTES (AUTO) 0.9 10^3/uL (0.1-1.4); ABSOLUTE NEUT (AUTO) 4.2 10^3/uL (1.7-8.2); BASOPHILS % (AUTO) 0.3 % (0-2); EOSINOPHILS % (AUTO) 1.4 % (0-6); HEMATOCRIT 42.5 % (37.9-51.0); HEMOGLOBIN 14.5 g/dL (13.5-17.0); LYMPHOCYTES % (AUTO) 15.9 % (13-45); MEAN CORPUSCULAR HEMOGLOBIN 31.7 pg (27.0-33.4); MEAN CORPUSCULAR VOLUME 93 fl (80-97); MONOCYTES % (AUTO) 14.2 % (3-13); PLATELET COUNT 107 10^3/uL (150-450); RED BLOOD COUNT 4.56 10^6/uL (4.35-5.55); RED CELL DISTRIBUTION WIDTH 14.2 % (11.5-14.0); SEGMENTED NEUTROPHILS % (AUTO) 68.2 % (42-78); TOTAL CELLS COUNTED % (AUTO) 100 %; WHITE BLOOD COUNT 6.1 10^3/uL (4.0-10.5)
[2018-01-20 05:46] LABS: ALANINE AMINOTRANSFERASE 41 U/L (21-72); ALBUMIN 3.4 g/dL (3.5-5.0); ALKALINE PHOSPHATASE 64 U/L (38-126); ANION GAP 10 (5-19); ASPARTATE AMINO TRANSFERASE 29 U/L (17-59); BILIRUBIN,DIRECT 0.3 mg/dL (0.0-0.4); BILIRUBIN,TOTAL 1.3 mg/dL (0.2-1.3); BLOOD UREA NITROGEN 23 mg/dL (7-20); CALCIUM 8.9 mg/dL (8.4-10.2); CARBON DIOXIDE 23 mmol/L (22-30); CHLORIDE 104 mmol/L (98-107); GLUCOSE 125 mg/dL (75-110); POTASSIUM 4.1 mmol/L (3.6-5.0); SODIUM 137.3 mmol/L (137-145); TOTAL PROTEIN 6.2 g/dL (6.3-8.2)
[2018-01-20 08:24] LABS: APPEARANCE,URINE CLEAR; BILIRUBIN,URINE NEGATIVE (NEGATIVE); COLOR,URINE YELLOW; GLUCOSE, URINE NEGATIVE (NEGATIVE); KETONES,URINE NEGATIVE (NEGATIVE); LEUKOCYTE ESTERASE,URINE NEGATIVE (NEGATIVE); NITRITE,URINE NEGATIVE (NEGATIVE); PROTEIN,URINE NEGATIVE (NEGATIVE); URINE SPECIFIC GRAVITY 1.024; UROBILINOGEN,URINE NEGATIVE mg/dL (<2.0)
[2018-01-20] MEDS: SITAGLIPTIN PHOSPHATE 50 MG TABLET PO SCH (10:05)
[2018-01-20] MEDS: ASPIRIN 81 MG TABLET, CHEWABLE PO SCH (10:05)
[2018-01-20] MEDS: LISINOPRIL 5 MG TABLET PO SCH (10:06)
[2018-01-20] MEDS: FAMOTIDINE 20 MG TABLET PO SCH ×2 (10:06→21:47)
[2018-01-20] MEDS: METFORMIN HCL 500 MG TABLET PO SCH ×2 (10:06→17:32)
[2018-01-20] MEDS: FLUTICASONE/SALMETEROL DISKUS 250-50 MCG/DOSE IH SCH ×2 (10:07→21:47)
[2018-01-20] MEDS: METOPROLOL TARTRATE 25 MG TABLET PO SCH (10:07)
[2018-01-20] MEDS: TIOTROPIUM BROMIDE DPI 5 CAP/KIT (18 MCG/CAP) IH SCH (10:08)
[2018-01-20] MEDS: CEFTRIAXONE SODIUM 1,000 MG in NORMAL SALINE 100 ML IV SCH (10:08)
[2018-01-20] MEDS: ENOXAPARIN SODIUM INJ 40 MG/0.4 ML DISP.SYRIN SUBCUT SCH (10:08)
[2018-01-20] MEDS: LEVOFLOXACIN 250 MG/D5W RTU 250 MG/50 ML RTUPB IV SCH (11:18)
--- NOTE | 2018-01-20 14:05 | PDOC PROGRESS REPORT ---
Subjective Progress Note for:: 01/20/18 Subjective:: No chest pain or difficulty with breathing. No fever or chills. No nausea, vomiting, abdominal pain or constipation. Remain on IV antibiotic therapy. Reason For Visit: PNEUMONIA Physical Exam Vital Signs: Temp Pulse Resp BP Pulse Ox 98.0 F 103 H 15 132/84 H 95 01/20/18 11:25 01/20/18 11:25 01/20/18 11:25 01/20/18 11:25 01/20/18 11:25 Intake & Output 01/19/18 01/20/18 01/21/18 06:59 06:59 06:59 Intake Total 446 1960 554 Output Total 0 Balance 446 1960 554 Weight 61.4 kg 59.4 kg General appearance: PRESENT: no acute distress, well-developed, well-nourished Head exam: PRESENT: atraumatic, normocephalic Eye exam: PRESENT: conjunctiva pink, EOMI, PERRLA. ABSENT: scleral icterus Mouth exam: PRESENT: moist Teeth exam: PRESENT: poor dentation Respiratory exam: PRESENT: clear to auscultation eve Cardiovascular exam: PRESENT: RRR. ABSENT: diastolic murmur, rubs, systolic murmur Vascular exam: PRESENT: normal capillary refill. ABSENT: pallor GI/Abdominal exam: PRESENT: normal bowel sounds, soft. ABSENT: distended, guarding, mass, organolmegaly, rebound, tenderness Extremities exam: ABSENT: pedal edema Musculoskeletal exam: PRESENT: normal inspection Neurological exam: PRESENT: alert, awake, oriented to person, oriented to place , oriented to time, oriented to situation, CN II-XII grossly intact. ABSENT: motor sensory deficit Psychiatric exam: PRESENT: appropriate affect, normal mood. ABSENT: homicidal ideation, suicidal ideation Skin exam: PRESENT: dry, intact, warm. ABSENT: cyanosis, rash Results Laboratory Results: 01/20/18 05:07 01/20/18 05:07 01/20/18 01/20/18 01/20/18 05:07 05:07 07:50 WBC 6.1 RBC 4.56 Hgb 14.5 Hct 42.5 MCV 93 MCH 31.7 MCHC 34.0 RDW 14.2 H Plt Count 107 L Seg Neutrophils % 68.2 Lymphocytes % 15.9 Monocytes % 14.2 H Eosinophils % 1.4 Basophils % 0.3 Absolute Neutrophils 4.2 Absolute Lymphocytes 1.0 Absolute Monocytes 0.9 Absolute Eosinophils 0.1 Absolute Basophils 0.0 Sodium 137.3 Potassium 4.1 Chloride 104 Carbon Dioxide 23 Anion Gap 10 BUN 23 H Creatinine 0.93 Est GFR ( Amer) > 60 Est GFR (Non-Af Amer) > 60 Glucose 125 H Calcium 8.9 Total Bilirubin 1.3 AST 29 ALT 41 Alkaline Phosphatase 64 Total Protein 6.2 L Albumin 3.4 L Urine Color YELLOW Urine Appearance CLEAR Urine pH 5.0 Ur Specific Lissie 1.024 Urine Protein NEGATIVE Urine Glucose (UA) NEGATIVE Urine Ketones NEGATIVE Urine Blood NEGATIVE Urine Nitrite NEGATIVE Ur Leukocyte Esterase NEGATIVE Urine WBC (Auto) 2 Urine RBC (Auto) 1 01/19/18 05:07 NT-Pro-B Natriuret Pep 489 H Impressions: Chest CT 01/18/18 00:00 IMPRESSION: EMPHYSEMATOUS CHANGES. CHRONIC SCARRING IN THE RIGHT LUNG APEX. SCATTERED AIRSPACE DISEASE IN THE POSTERIOR LEFT LUNG BASE, SUSPICIOUS FOR INFILTRATE SECONDARY TO PNEUMONIA. Chest X-Ray 01/18/18 02:58 IMPRESSION: Moderate left lower lobar pneumonia. Assessment & Plan - Diagnosis (1) Pneumonia Qualifiers: Pneumonia type: due to unspecified organism Laterality: left Lung location: lower lobe of lung Qualified Code(s): J18.1 - Lobar pneumonia, unspecified organism Is this a current diagnosis for this admission?: Yes Plan: Continue IV Levofloxacin and Ceftriaxone coverage. See covering attending physician orders. (2) Chronic obstructive pulmonary disease Qualifiers: COPD type: chronic bronchitis Is this a current diagnosis for this admission?: Yes Plan: See covering attending physician orders. (3) Hypertension Qualifiers: Hypertension type: essential hypertension Qualified Code(s): I10 - Essential (primary) hypertension Is this a current diagnosis for this admission?: Yes Plan: See covering attending physician orders. (4) Type 2 diabetes mellitus Qualifiers: Diabetes mellitus liner roll changer insulin use: without liner roll changer use Is this a current diagnosis for this admission?: Yes Plan: See covering attending physician orders. - Time Time Spent with patient: 25-34 minutes Medications reviewed and adjusted accordingly: Yes Anticipated discharge: Home Within: Other - Inpatient Certification Based on my medical assessment, after consideration of the patient's comorbidities, presenting symptoms, or acuity I expect that the services needed warrant INPATIENT care.: Yes I certify that my determination is in accordance with my understanding of Medicare's requirements for reasonable and necessary INPATIENT services [42 CFR 412.3e].: Yes Medical Necessity: Need Close Monitoring Due to Risk of Patient Decompensation, Need For IV Fluids, Need For Continuous Telemetry Monitoring, Need for IV Antibiotics, Risk of Complication if Not Cared For in Hospital Post Hospital Care: D/C Lace Inspector Documentation - Plan Summary Plan Summary: See covering attending physician orders.
[2018-01-20] MEDS ORDERED: OXYCODONE-ACETAMINOPHEN 5-325 MG TABLET PO PRN (14:50)
[2018-01-21] MEDS: IPRATROPIUM/ALBUTEROL 0.5-2.5 MG/3 ML AMPUL NEB SCH ×4 (02:12→19:54)
[2018-01-21 05:57] LABS: ABSOLUTE EOSINOPHILS # (AUTO) 0.1 10^3/uL (0.0-0.6); ABSOLUTE LYMPHOCYTES (AUTO) 1.6 10^3/uL (0.5-4.7); ABSOLUTE NEUT (AUTO) 3.2 10^3/uL (1.7-8.2); BASOPHILS % (AUTO) 0.5 % (0-2); HEMATOCRIT 43.4 % (37.9-51.0); HEMOGLOBIN 14.8 g/dL (13.5-17.0); LYMPHOCYTES % (AUTO) 27.6 % (13-45); MEAN CORPUSCULAR HGB CONC 34.1 g/dL (32.0-36.0); MEAN CORPUSCULAR VOLUME 94 fl (80-97); MONOCYTES % (AUTO) 16.1 % (3-13); PLATELET COUNT 108 10^3/uL (150-450); RED BLOOD COUNT 4.63 10^6/uL (4.35-5.55); RED CELL DISTRIBUTION WIDTH 14.1 % (11.5-14.0); SEGMENTED NEUTROPHILS % (AUTO) 53.8 % (42-78); TOTAL CELLS COUNTED % (AUTO) 100 %
[2018-01-21 06:33] LABS: ALBUMIN 3.4 g/dL (3.5-5.0); ANION GAP 10 (5-19); BLOOD UREA NITROGEN 14 mg/dL (7-20); CALCIUM 9.1 mg/dL (8.4-10.2); CARBON DIOXIDE 23 mmol/L (22-30); CHLORIDE 105 mmol/L (98-107); GLUCOSE 115 mg/dL (75-110); SODIUM 138.1 mmol/L (137-145); TOTAL PROTEIN 6.3 g/dL (6.3-8.2)
[2018-01-21 06:34] LABS: ALANINE AMINOTRANSFERASE 37 U/L (21-72); ALKALINE PHOSPHATASE 79 U/L (38-126); ASPARTATE AMINO TRANSFERASE 24 U/L (17-59); BILIRUBIN,DIRECT 0.2 mg/dL (0.0-0.4); BILIRUBIN,TOTAL 1.1 mg/dL (0.2-1.3)
[2018-01-21] MEDS: SITAGLIPTIN PHOSPHATE 50 MG TABLET PO SCH (09:27)
[2018-01-21] MEDS: METFORMIN HCL 500 MG TABLET PO SCH ×2 (09:27→17:28)
[2018-01-21] MEDS: METOPROLOL TARTRATE 25 MG TABLET PO SCH (09:28)
[2018-01-21] MEDS: LISINOPRIL 5 MG TABLET PO SCH (09:28)
[2018-01-21] MEDS: FAMOTIDINE 20 MG TABLET PO SCH ×2 (09:29→21:16)
[2018-01-21] MEDS: ASPIRIN 81 MG TABLET, CHEWABLE PO SCH (09:29)
[2018-01-21] MEDS: FLUTICASONE/SALMETEROL DISKUS 250-50 MCG/DOSE IH SCH ×2 (09:29→21:18)
[2018-01-21] MEDS: LEVOFLOXACIN 250 MG/D5W RTU 250 MG/50 ML RTUPB IV SCH (09:30)
[2018-01-21] MEDS: TIOTROPIUM BROMIDE DPI 5 CAP/KIT (18 MCG/CAP) IH SCH (09:30)
[2018-01-21] MEDS: ENOXAPARIN SODIUM INJ 40 MG/0.4 ML DISP.SYRIN SUBCUT SCH (09:31)
[2018-01-21] MEDS: CEFTRIAXONE SODIUM 1,000 MG in NORMAL SALINE 100 ML IV SCH (10:56)
--- NOTE | 2018-01-21 13:39 | PDOC PROGRESS REPORT ---
Subjective Progress Note for:: 01/21/18 Subjective:: No chest pain or difficulty with breathing. No fever or chills. No nausea, vomiting, abdominal pain or constipation. Remain on IV Levofloxacin and Ceftriaxone. Reason For Visit: PNEUMONIA Physical Exam Vital Signs: Temp Pulse Resp BP Pulse Ox 98.7 F 95 17 120/70 90 L 01/21/18 11:41 01/21/18 11:41 01/21/18 11:41 01/21/18 11:41 01/21/18 11:41 Intake & Output 01/20/18 01/21/18 01/22/18 06:59 06:59 06:59 Intake Total 1960 1274 355 Output Total 200 Balance 1960 1274 155 Weight 59.4 kg 58.9 kg Physical Exam: General appearance: PRESENT: no acute distress, well-developed, well-nourished Head exam: PRESENT: atraumatic, normocephalic Eye exam: PRESENT: conjunctiva pink, EOMI, PERRLA. ABSENT: scleral icterus Mouth exam: PRESENT: moist Teeth exam: PRESENT: poor dentition Respiratory exam: PRESENT: clear to auscultation eve Cardiovascular exam: PRESENT: RRR. ABSENT: diastolic murmur, rubs, systolic murmur Vascular exam: PRESENT: normal capillary refill. ABSENT: pallor GI/Abdominal exam: PRESENT: normal bowel sounds, soft. ABSENT: distended, guarding, mass, organomegaly, rebound, tenderness Extremities exam: ABSENT: pedal edema Musculoskeletal exam: PRESENT: normal inspection Neurological exam: PRESENT: alert, awake, oriented to person, oriented to place , oriented to time, oriented to situation, CN II-XII grossly intact. ABSENT: motor sensory deficit Psychiatric exam: PRESENT: appropriate affect, normal mood. ABSENT: homicidal ideation, suicidal ideation Skin exam: PRESENT: dry, intact, warm. ABSENT: cyanosis, rash Results Laboratory Results: 01/21/18 05:19 01/21/18 05:19 01/21/18 01/21/18 05:19 05:19 WBC 6.0 RBC 4.63 Hgb 14.8 Hct 43.4 MCV 94 MCH 32.0 MCHC 34.1 RDW 14.1 H Plt Count 108 L Seg Neutrophils % 53.8 Lymphocytes % 27.6 Monocytes % 16.1 H Eosinophils % 2.0 Basophils % 0.5 Absolute Neutrophils 3.2 Absolute Lymphocytes 1.6 Absolute Monocytes 1.0 Absolute Eosinophils 0.1 Absolute Basophils 0.0 Sodium 138.1 Potassium 4.0 Chloride 105 Carbon Dioxide 23 Anion Gap 10 BUN 14 Creatinine 0.93 Est GFR ( Amer) > 60 Est GFR (Non-Af Amer) > 60 Glucose 115 H Calcium 9.1 Total Bilirubin 1.1 AST 24 ALT 37 Alkaline Phosphatase 79 Total Protein 6.3 Albumin 3.4 L 01/19/18 05:07 NT-Pro-B Natriuret Pep 489 H Impressions: Chest CT 01/18/18 00:00 IMPRESSION: EMPHYSEMATOUS CHANGES. CHRONIC SCARRING IN THE RIGHT LUNG APEX. SCATTERED AIRSPACE DISEASE IN THE POSTERIOR LEFT LUNG BASE, SUSPICIOUS FOR INFILTRATE SECONDARY TO PNEUMONIA. Chest X-Ray 01/18/18 02:58 IMPRESSION: Moderate left lower lobar pneumonia. Assessment & Plan - Diagnosis (1) Pneumonia Qualifiers: Pneumonia type: due to unspecified organism Laterality: left Lung location: lower lobe of lung Qualified Code(s): J18.1 - Lobar pneumonia, unspecified organism Is this a current diagnosis for this admission?: Yes (2) Chronic obstructive pulmonary disease Qualifiers: COPD type: chronic bronchitis Is this a current diagnosis for this admission?: Yes (3) Hypertension Qualifiers: Hypertension type: essential hypertension Qualified Code(s): I10 - Essential (primary) hypertension Is this a current diagnosis for this admission?: Yes (4) Type 2 diabetes mellitus Qualifiers: Diabetes mellitus intermediate manager insulin use: without care home use Is this a current diagnosis for this admission?: Yes - Time Time Spent with patient: 25-34 minutes Medications reviewed and adjusted accordingly: Yes Anticipated discharge: Home Within: Other - Inpatient Certification Based on my medical assessment, after consideration of the patient's comorbidities, presenting symptoms, or acuity I expect that the services needed warrant INPATIENT care.: Yes I certify that my determination is in accordance with my understanding of Medicare's requirements for reasonable and necessary INPATIENT services [42 CFR 412.3e].: Yes Medical Necessity: Need Close Monitoring Due to Risk of Patient Decompensation, Need For IV Fluids, Need For Continuous Telemetry Monitoring, Need for IV Antibiotics, Risk of Complication if Not Cared For in Hospital Post Hospital Care: D/C Raw Scales Operator Documentation - Plan Summary Plan Summary: Continue current medication management.
[2018-01-22] MEDS: IPRATROPIUM/ALBUTEROL 0.5-2.5 MG/3 ML AMPUL NEB SCH ×2 (01:13→08:07)
[2018-01-22] MEDS: METFORMIN HCL 500 MG TABLET PO SCH (08:33)
--- NOTE | 2018-01-22 10:05 | RADIOLOGY REPORT (SQ) ---
EXAM DESCRIPTION: CHEST PA/LAT COMPLETED DATE/TIME: 01/22/2018 9:50 am REASON FOR STUDY: Assess pna status COMPARISON: 04/14/2012 EXAM PARAMETERS: NUMBER OF VIEWS: two views TECHNIQUE: Digital Frontal and Lateral radiographic views of the chest acquired. RADIATION DOSE: NA LIMITATIONS: none FINDINGS: LUNGS AND PLEURA: Stable mild chronic interstitial changes in the lungs. Stable fibrosis /scar and blebs/bullae in the right apex of the lung, stable findings. Slight to mild stable left ba se atelectasis or scar No pneumothorax or pleural effusion. MEDIASTINUM AND HILAR STRUCTURES: No masses or contour abnormalities. HEART AND VASCULAR STRUCTURES: Heart normal size. No evidence for failure. BONES: No acute findings. HARDWARE: Prior CABG. OTHER: No other significant finding. IMPRESSION: 1 Stable chronic changes in the lungs since the prior examination dated 04/14/2012. No ac judy pulmonary findings. TECHNICAL DOCUMENTATION: JOB ID: [id number] [employer]- All Rights Reserved Reading location - IP/workstation name: [email or web address]
[2018-01-22] MEDS: METOPROLOL TARTRATE 25 MG TABLET PO SCH (10:21)
[2018-01-22] MEDS: SITAGLIPTIN PHOSPHATE 50 MG TABLET PO SCH (10:21)
[2018-01-22] MEDS: FAMOTIDINE 20 MG TABLET PO SCH (10:21)
[2018-01-22] MEDS: LEVOFLOXACIN 250 MG/D5W RTU 250 MG/50 ML RTUPB IV SCH (10:22)
[2018-01-22] MEDS: LISINOPRIL 5 MG TABLET PO SCH (10:22)
[2018-01-22] MEDS: ASPIRIN 81 MG TABLET, CHEWABLE PO SCH (10:22)
[2018-01-22] MEDS: FLUTICASONE/SALMETEROL DISKUS 250-50 MCG/DOSE IH SCH (10:22)
[2018-01-22] MEDS: ENOXAPARIN SODIUM INJ 40 MG/0.4 ML DISP.SYRIN SUBCUT SCH (10:23)
--- NOTE | 2018-01-22 11:24 | PDOC DISCHARGE SUMMARY ---
General - Admit/Disc Date/PCP Admission Date/Primary Care Provider: 01/18/18 04:04 STEPHANIE PERES MD Discharge Date: 01/22/18 - Discharge Diagnosis (1) Pneumonia Is this a current diagnosis for this admission?: Yes Summary: Currently all resolving continues to Levaquin (2) Respiratory distress Is this a current diagnosis for this admission?: Yes Summary: Currently all resolved (3) Fever Is this a current diagnosis for this admission?: Yes Summary: Due to the pneumonia currently all resolved (4) Type 2 diabetes mellitus Is this a current diagnosis for this admission?: Yes Summary: Currently stable (5) Hypertension Is this a current diagnosis for this admission?: Yes Summary: Well under control continues to current medication (6) Coronary artery disease Is this a current diagnosis for this admission?: Yes Summary: Currently all stable (7) Chronic obstructive pulmonary disease Is this a current diagnosis for this admission?: Yes Summary: Continues to current medications (8) Sleep apnea Is this a current diagnosis for this admission?: Yes Summary: Continues uses CPAP - Additional Information Discharge Diet: Diabetic Discharge Activity: Activity As Tolerated Prescriptions: Levofloxacin [Levaquin 250 mg Tablet] 250 mg PO DAILY #7 tablet Home Medications: Albuterol Sulfate [Proair HFA] 1 puff IH QIDP PRN 01/18/18 Aspirin [Adult Low Dose Aspirin EC] 81 mg PO DAILY 01/18/18 Atorvastatin Calcium [Lipitor 40 mg Tablet] 40 mg PO DAILY 01/18/18 Cholecalciferol (Vitamin D3) [Vitamin D3] 2,000 unit PO DAILY 01/18/18 Fluticasone/Salmeterol [Advair 250-50 Diskus 28 dose] 1 puff IH Q12 01/18/18 Ipratropium/Albuterol Sulfate [Duoneb 3 ml Ampul] 3 ml NEB [id number] PRN 01/18/18 Lisinopril [Zestril] 5 mg PO DAILY 01/18/18 Metformin HCl [Glucophage 500 mg Tablet] 500 mg PO BID 01/18/18 Metoprolol Tartrate [Lopressor 50 mg Tablet] 50 mg PO BID 01/18/18 Nitroglycerin [Nitrolingual] 1 spray SL Q5MP PRN 01/18/18 Sitagliptin Phosphate [Januvia] 100 mg PO DAILY 01/18/18 Tiotropium [place] [Spiriva Handihaler 18 mcg/dose (30 Dose)] 18 mcg IH DAILY Levofloxacin [Levaquin 250 mg Tablet] 250 mg PO DAILY #7 tablet 01/22/18 History of Present Illness History of Present Illness: KELSI SIDHU is a 77 year old male This is a 77-year-old male with a significant history of the type 2 diabetes mellitus history of the hypertension's hyperlipidemia and history of COPD and a history of coronary artery disease came to the emergency department with a complaint of a cough congestion's and the fever the temperature is about 100 and the emergency department patient was diagnosed with a pneumoniaPatient initially was in respiratory distress and a put on the BiPAP patient is currently on nasal cannula doing well Patient's denied any chest pain denied any shortness of the breath Patient's a used to see a Dr. Blanco in the past Patient also see a Dr. Rea artery disease Patient's denied any nausea no vomiting Patient's denied any headache Hospital Course Hospital Course: This is a 77-year-old Male came to the emergency departments with a complaint of a cough congestion and diagnosed with a pneumonia patient was admitting in the hospital with IV antibiotic and response very well Patients at this point to afebrile for more than 2 days and patient's chest x- rays all improving in patients ambulating in the hallway with his without any problems and other medical problem was all stable and patient's discharge home with the stable condition and following a one-week Physical Exam Vital Signs: Temp Pulse Resp BP Pulse Ox 98.1 F 83 16 134/66 H 89 L 01/22/18 07:44 01/22/18 08:07 01/22/18 08:07 01/22/18 07:44 01/22/18 08:07 Intake & Output 01/21/18 01/22/18 01/23/18 06:59 06:59 06:59 Intake Total 1274 1485 Output Total 200 Balance 1274 1285 Weight 58.9 kg 59 kg General appearance: PRESENT: no acute distress, well-developed, well-nourished Head exam: PRESENT: atraumatic, normocephalic Eye exam: PRESENT: conjunctiva pink, EOMI, PERRLA. ABSENT: scleral icterus Ear exam: PRESENT: normal external ear exam Mouth exam: PRESENT: moist, tongue midline Neck exam: PRESENT: full ROM. ABSENT: carotid bruit, JVD, lymphadenopathy, thyromegaly Respiratory exam: PRESENT: clear to auscultation eve Cardiovascular exam: PRESENT: RRR. ABSENT: diastolic murmur, rubs, systolic murmur Pulses: PRESENT: normal dorsalis pedis pul, +2 pedal pulses bilateral Vascular exam: PRESENT: normal capillary refill GI/Abdominal exam: PRESENT: normal bowel sounds, soft. ABSENT: distended, guarding, mass, organolmegaly, rebound, tenderness Rectal exam: PRESENT: deferred Extremities exam: ABSENT: pedal edema Musculoskeletal exam: PRESENT: ambulatory Neurological exam: PRESENT: alert, awake, oriented to person, oriented to place , oriented to time, oriented to situation, CN II-XII grossly intact. ABSENT: motor sensory deficit Psychiatric exam: PRESENT: appropriate affect, normal mood. ABSENT: homicidal ideation, suicidal ideation Skin exam: PRESENT: dry, intact, warm. ABSENT: cyanosis, rash Results Laboratory Results: 01/21/18 05:19 01/21/18 05:19 01/20/18 07:50 Clean Catch Midstream Urine Culture - Final NO GROWTH 2 DAYS 01/19/18 05:07 NT-Pro-B Natriuret Pep 489 H Impressions: Chest CT 01/18/18 00:00 IMPRESSION: EMPHYSEMATOUS CHANGES. CHRONIC SCARRING IN THE RIGHT LUNG APEX. SCATTERED AIRSPACE DISEASE IN THE POSTERIOR LEFT LUNG BASE, SUSPICIOUS FOR INFILTRATE SECONDARY TO PNEUMONIA. Chest X-Ray 01/22/18 00:00 IMPRESSION: 1 Stable chronic changes in the lungs since the prior examination dated 04/14/2012. No acute pulmonary findings. Qualifiers - * PATEINT BEING DISCHARGED WITH ANY OF THE FOLLOWING DIAGNOSIS?: No VTE patient discharged on overlapping Therapy?: Yes Plan Time Spent: Greater than 30 Minutes - Discussed with the patient and the regarding the patient's current conditions send antibiotic to the pharmacy and following office in 1 week
[2018-01-22 11:51] VITALS: BP 109/58
[2018-01-23] MEDS ORDERED: LEVOFLOXACIN 250 MG TABLET PO SCH (10:00)
== END 2018-01-22 12:11 | disposition home or self-care (01) | DRG 194 ==
LOC: ER 02:37 → EH 04:04 → 3W 06:30
PROVIDERS: ADMIT Family Medicine; ATTEND Family Medicine
DX: J18.9 Pneumonia, unspecified organism (principal); J44.0 Chronic obstructive pulmonary disease with (acute) lower respiratory infection; J44.9 Chronic obstructive pulmonary disease, unspecified; E11.9 Type 2 diabetes mellitus without complications; I25.10 Atherosclerotic heart disease of native coronary artery without angina pectoris; I10 Essential (primary) hypertension; E78.5 Hyperlipidemia, unspecified; K21.9 Gastro-esophageal reflux disease without esophagitis; R51 Headache; G47.30 Sleep apnea, unspecified; Z79.84 Long term (current) use of oral hypoglycemic drugs; Z79.82 Long term (current) use of aspirin; Z79.51 Long term (current) use of inhaled steroids; Z79.899 Other long term (current) drug therapy
CPT/HCPCS: 36415; 71045; 71046; 71250; 80053; 81001; 82803; 82962; 83605; 83880; 84484; 85025; 85610; 87040; 87070; 87086; 87205; 93005; 93010; 94640; 94660; 96365; 96375; 99291; J0696; J1815; J1956; J2930; J3490; J7620

== ENCOUNTER → 2018-01-29 | Outpatient (CLI) | payer MEDICARE, MEDICAID ==
[2018-01-29 10:10] LABS: ANION GAP 6 (5-19); BLOOD UREA NITROGEN 13 mg/dL (7-20); CALCIUM 9.2 mg/dL (8.4-10.2); CARBON DIOXIDE 28 mmol/L (22-30); CHLORIDE 106 mmol/L (98-107); CHOLESTEROL 164.06 mg/dL (0-200); GLUCOSE 117 mg/dL (75-110); POTASSIUM 4.6 mmol/L (3.6-5.0); SODIUM 140.1 mmol/L (137-145); TRIGLYCERIDES 85 mg/dL (<150)
[2018-01-29 10:22] LABS: DIRECT LDL 105 mg/dL (<100)
== END ==
LOC: OD 09:09
PROVIDERS: ATTEND Internal Medicine Cardiovascular Disease
DX: E78.2 Mixed hyperlipidemia (principal); I10 Essential (primary) hypertension; I49.1 Atrial premature depolarization
CPT/HCPCS: 36415; 80048; 80061

== ENCOUNTER → 2018-01-29 | Outpatient (CLI) | payer MEDICARE, MEDICAID ==
--- NOTE | 2018-01-29 10:27 | RADIOLOGY REPORT (SQ) ---
EXAM DESCRIPTION: CHEST PA/LATERAL COMPLETED DATE/TIME: 01/29/2018 8:48 am REASON FOR STUDY: LOBAR PNEUMONIA, UNSPECIFIED ORGANISM COMPARISON: 01/22/2018 EXAM PARAMETERS: NUMBER OF VIEWS: two views TECHNIQUE: Digital Frontal and Lateral radiographic views of the chest acquired. RADIATION DOSE: NA LIMITATIONS: none FINDINGS: LUNGS AND PLEURA: No opacities, masses or pneumothorax. No pleural effusion. The previous ly described chronic appearing changes appears stable. MEDIASTINUM AND HILAR STRUCTURES: No masses or contour abnormalities. HEART AND VASCULAR STRUCTURES: Heart normal size. No evidence for failure. BONES: No acute findings. HARDWARE: Patient is status post median sternotomy with coronary bypass surgery. OTHER: No other significant finding. IMPRESSION: No significant interval change. No acute findings. Other findings as noted above TECHNICAL DOCUMENTATION: JOB ID: [id number] [employer]- All Rights Reserved Reading location - IP/workstation name: [email or web address]
== END ==
LOC: OD 08:38
PROVIDERS: ATTEND Family Medicine
DX: J18.1 Lobar pneumonia, unspecified organism (principal)
CPT/HCPCS: 71046

== ENCOUNTER → 2018-05-10 | Outpatient (CLI) | payer MEDICARE, MEDICAID ==
[2018-05-10 10:36] LABS: ALANINE AMINOTRANSFERASE 34 U/L (21-72); ALBUMIN 4.5 g/dL (3.5-5.0); ALKALINE PHOSPHATASE 83 U/L (38-126); ASPARTATE AMINO TRANSFERASE 31 U/L (17-59); BILIRUBIN,DIRECT 0.2 mg/dL (0.0-0.4); BILIRUBIN,TOTAL 2.2 mg/dL (0.2-1.3); CHOLESTEROL 181.03 mg/dL (0-200); TOTAL PROTEIN 8.1 g/dL (6.3-8.2); TRIGLYCERIDES 72 mg/dL (<150)
[2018-05-10 10:46] LABS: DIRECT LDL 101 mg/dL (<100)
== END ==
LOC: OD 09:53
PROVIDERS: ATTEND Internal Medicine Cardiovascular Disease
DX: E78.2 Mixed hyperlipidemia (principal); Z79.899 Other long term (current) drug therapy
CPT/HCPCS: 36415; 80061; 80076

== ENCOUNTER 2018-06-08 21:17 | Inpatient (IN) | payer MEDICARE, MEDICAID ==
[2018-06-08] MEDS ORDERED: ACETAMINOPHEN 325 MG TABLET PO ONE (21:29)
[2018-06-08] MEDS ORDERED: NORMAL SALINE 1000 ML 1,000 ML IV ONE (21:29)
--- NOTE | 2018-06-08 21:39 | ER Document Report ---
ED General - General Mode of Arrival: Ambulatory Information source: Patient TRAVEL OUTSIDE OF THE [place] IN LAST 30 DAYS: No <MIN DUMONT - Last Filed: 06/08/18 23:13> <BETTY CAMEJO - Last Filed: 06/09/18 01:29> - General Chief Complaint: fever Stated Complaint: FEVER/COUGH Notes: Patient is a 77 year old male presenting to the emergency department complaining of multiple symptoms including shortness of breath, a productive cough and a fever. Patient states she saw Dr. Chávez recently and was giving 2 antibiotics. At bedside patient states it is very hard for him to breathe. (MIN DUMONT) - Related Data Allergies/Adverse Reactions: No Known Allergies Allergy (Verified 06/08/18 21:47) Past Medical History - General Information source: Patient, Relative - Social History Smoking Status: Unknown if Ever Smoked Family History: Reviewed & Not Pertinent - Past Medical History Cardiac Medical History: Reports: Hx Coronary Artery Disease, Hx Heart Attack, Hx Hypercholesterolemia Pulmonary Medical History: Reports: Hx COPD Endocrine Medical History: Reports: Hx Diabetes Mellitus Type 2 GI Medical History: Reports: Hx Gastroesophageal Reflux Disease Past Surgical History: Reports: Hx Cardiac Catheterization, Hx Coronary Artery Bypass Graft, Hx Open Heart Surgery - Immunizations Immunizations up to date: Yes <MIN DUMONT - Last Filed: 06/08/18 23:13> Review of Systems - Review of Systems Constitutional: See HPI, Fever EENT: No symptoms reported Cardiovascular: No symptoms reported Respiratory: See HPI, Cough, Short of breath Gastrointestinal: No symptoms reported Genitourinary: No symptoms reported Male Genitourinary: No symptoms reported Musculoskeletal: No symptoms reported Skin: No symptoms reported Hematologic/Lymphatic: No symptoms reported Neurological/Psychological: No symptoms reported -: Yes All other systems reviewed and negative <MIN DUMONT - Last Filed: 06/08/18 23:13> Physical Exam - General General appearance: Alert In distress: Mild - Respiratory Respiratory status: Tachypnea Breath sounds: Decreased air movement - at bases b/l - Cardiovascular Rhythm: Regular, Tachycardia - Abdominal Inspection: Normal Tenderness: Nontender - Extremities General upper extremity: Normal inspection, Normal ROM General lower extremity: Normal inspection, Normal ROM, Normal weight bearing - Neurological Neuro grossly intact: Yes Cognition: Normal Orientation: AAOx4 Ben Coma Scale Eye Opening: Spontaneous Ben Coma Scale Verbal: Oriented Ben Coma Scale Motor: Obeys Commands Ben Coma Scale Total: 15 Motor strength normal: LUE, RUE, LLE, RLE - Psychological Associated symptoms: Normal affect, Normal mood - Skin Skin Temperature: Warm Skin Moisture: Dry Skin Color: Normal <BETTY CAMEJO - Last Filed: 06/09/18 01:29> - Vital signs Vitals: Temp Pulse Resp BP Pulse Ox 101.3 F H 118 H 26 H 124/65 90 L 06/08/18 21:24 06/08/18 21:24 06/08/18 21:24 06/08/18 21:24 06/08/18 21:24 Course - Laboratory Result Diagrams: 06/08/18 21:57 06/08/18 21:57 <MIN DUMONT - Last Filed: 06/08/18 23:13> - Laboratory Result Diagrams: 06/08/18 21:57 06/08/18 21:57 <BETTY CAMEJO - Last Filed: 06/09/18 01:29> - Re-evaluation Re-evalutation: 06/08/18 22:43 Patient rechecked. Increased respiratory distress. 06/08/18 23:[address] Spangler who accepts patient for admission. (MIN DUMONT) Patient is a 77-year-old male who comes in complaining of productive cough fever and some increased work of breathing at home. Patient was seen by Dr. Chávez and started on antibiotics today but was concerned about the patient' s breathing and fever. Patient was given Tylenol, cultures were sent, and antibiotics were initiated for symptoms and chest x-ray consistent with pneumonia. Patient also has some acute renal insufficiency which is new for him. Patient initially was not hypoxic but then started to have increased respiratory distress that resolved with nasal cannula. He is also given nebulizer treatment for some wheezing associated with coughing. Patient was discussed with Dr. Carcamo and will be admitted to the [facility]. He has been given cefepime, Levaquin, and azithromycin. Patient and family are agreeable to this plan. (BETTY CAMEJO) - Vital Signs Vital signs: Temp Pulse Resp BP Pulse Ox 99 F 99 21 H 101/60 94 08/03/18 23:26 06/09/18 00:58 06/09/18 00:58 06/09/18 00:58 06/09/18 00:58 - Laboratory Laboratory results interpreted by me: 06/08/18 06/08/18 06/08/18 21:57 21:57 21:57 WBC 14.0 H Plt Count 120 L Seg Neutrophils % 78.6 H Lymphocytes % 12.1 L Absolute Neutrophils 11.1 H VBG pH 7.44 H VBG pCO2 33.8 L Carbon Dioxide 21 L Creatinine 1.51 H Est GFR ( Amer) 54 L Est GFR (Non-Af Amer) 45 L Glucose 155 H Total Bilirubin 4.2 H Direct Bilirubin 0.6 H AST 75 H Critical Care Note - Critical Care Note Total time excluding time spent on procedures (mins): 45 - Evaluation and management of pneumonia, SIRS, acute renal insufficiency, coronation of admission, counseling of patient and family, multiple re-evaluations for respiratory distress <BETTY CAMEJO - Last Filed: 06/09/18 01:29> Discharge <MIN DUMONT - Last Filed: 06/08/18 23:13> - Discharge Admitting Provider: [facility] Unit Admitted: [facility] <BETTY CAMEJO - Last Filed: 06/09/18 01:29> - Discharge Clinical Impression: Hypoxia, SIRS (systemic inflammatory response syndrome) Pneumonia Qualifiers: Pneumonia type: due to unspecified organism Laterality: bilateral Lung location : lower lobe of lung Qualified Code(s): J18.1 - Lobar pneumonia, unspecified organism Condition: Stable Disposition: ADMITTED INPATIENT Scribe Attestation: 06/09/18 01:29 I personally performed the services described in the documentation, reviewed and edited the documentation which was dictated to the scribe in my presence, and it accurately records my words and actions. (BETTY CAMEJO) Scribe Documentation - Scribe Written by Александр:: Александр Breaux, 06/08/2018 23:16 acting as scribe for :: Harish <MIN DUMONT - Last Filed: 06/08/18 23:13>
[2018-06-08 22:10] LABS: ABSOLUTE LYMPHOCYTES (AUTO) 1.7 10^3/uL (0.5-4.7); ABSOLUTE MONOCYTES (AUTO) 1.2 10^3/uL (0.1-1.4); ABSOLUTE NEUT (AUTO) 11.1 10^3/uL (1.7-8.2); BASOPHILS % (AUTO) 0.3 % (0-2); EOSINOPHILS % (AUTO) 0.2 % (0-6); HEMATOCRIT 43.7 % (37.9-51.0); HEMOGLOBIN 15.2 g/dL (13.5-17.0); LYMPHOCYTES % (AUTO) 12.1 % (13-45); MEAN CORPUSCULAR HGB CONC 34.7 g/dL (32.0-36.0); MEAN CORPUSCULAR VOLUME 92 fl (80-97); MONOCYTES % (AUTO) 8.8 % (3-13); PLATELET COUNT 120 10^3/uL (150-450); RED BLOOD COUNT 4.74 10^6/uL (4.35-5.55); RED CELL DISTRIBUTION WIDTH 13.5 % (11.5-14.0); SEGMENTED NEUTROPHILS % (AUTO) 78.6 % (42-78); TOTAL CELLS COUNTED % (AUTO) 100 %
[2018-06-08 22:13] LABS: VENOUS BLOOD HCO3 22.4 mmol/L (20-32); VENOUS BLOOD PCO2 33.8 mmHg (35-63); VENOUS BLOOD PH 7.44 (7.30-7.42)
[2018-06-08 22:18] LABS: INTERNATIONAL RATION (INR) 0.98; PROTHROMBIN TIME 13.5 SEC (11.4-15.4)
[2018-06-08 22:30] LABS: ALANINE AMINOTRANSFERASE 69 U/L (21-72); ALBUMIN 3.8 g/dL (3.5-5.0); ALKALINE PHOSPHATASE 87 U/L (38-126); ANION GAP 14 (5-19); ASPARTATE AMINO TRANSFERASE 75 U/L (17-59); BILIRUBIN,DIRECT 0.6 mg/dL (0.0-0.4); BILIRUBIN,TOTAL 4.2 mg/dL (0.2-1.3); BLOOD UREA NITROGEN 20 mg/dL (7-20); CALCIUM 9.2 mg/dL (8.4-10.2); CARBON DIOXIDE 21 mmol/L (22-30); CHLORIDE 102 mmol/L (98-107); GLUCOSE 155 mg/dL (75-110); SODIUM 137.2 mmol/L (137-145); TOTAL PROTEIN 7.5 g/dL (6.3-8.2)
--- NOTE | 2018-06-08 22:34 | RADIOLOGY REPORT (SQ) ---
EXAM DESCRIPTION: CHEST 2 VIEWS COMPLETED DATE/TIME: 06/08/2018 10:21 pm REASON FOR STUDY: Cough, fever COMPARISON: 01/22/2018 EXAM PARAMETERS: NUMBER OF VIEWS: two views TECHNIQUE: Digital Frontal and Lateral radiographic views of the chest acquired. RADIATION DOSE: NA LIMITATIONS: none FINDINGS: LUNGS AND PLEURA: There are increased airspace -nodular opacities in both lung bases. No pleural effusion. No pneumothorax. The chronic interstitial -emphysematous changes bilaterally. MEDIASTINUM AND HILAR STRUCTURES: Stable. HEART AND VASCULAR STRUCTURES: Stable. BONES: No acute findings. HARDWARE: CABG. OTHER: No other significant finding. IMPRESSION: There are increased airspace -nodular opacities in both lung bases. No pleural effusion. TECHNICAL DOCUMENTATION: JOB ID: [id number] 2010 [employer]- All Rights Reserved Reading location - IP/workstation name: Nova Lignum
[2018-06-08] MEDS ORDERED: CEFEPIME 1 GM/D5W RTU 1 GM/50 ML RTUPB IV ONE (22:38)
[2018-06-08] MEDS ORDERED: LEVOFLOXACIN 750 MG/D5W RTU 750 MG/150 ML RTUPB IV ONE (22:39)
[2018-06-08] MEDS ORDERED: AZITHROMYCIN INJ 500 MG VIAL IV ONE (22:41)
[2018-06-08] MEDS ORDERED: IPRATROPIUM/ALBUTEROL 0.5-2.5 MG/3 ML AMPUL NEB ONE (22:46)
[2018-06-09] MEDS ORDERED: IPRATROPIUM/ALBUTEROL 0.5-2.5 MG/3 ML AMPUL NEB PRN (02:32)
[2018-06-09] MEDS ORDERED: ALBUTEROL SULFATE HFA (90 MCG/PUFF) 8 GM MDI (1 MDI/ER DISP) IH PRN (02:32)
[2018-06-09] MEDS ORDERED: GLUCAGON,HUMAN RECOMB 1 MG INJ IM PRN (02:38)
[2018-06-09] MEDS ORDERED: DEXTROSE 40% GEL 15 GM TUBE PO PRN ×2 (02:38)
[2018-06-09] MEDS ORDERED: DEXTROSE 50%-WATER 25 GM/50 ML DISP.SYRIN IV PRN ×2 (02:38)
[2018-06-09] MEDS ORDERED: INSULIN LISPRO 100 UNIT/ML 3 ML VIAL SUBCUT PRN (02:38)
[2018-06-09] MEDS ORDERED: LEVOFLOXACIN 750 MG/D5W RTU 150 ML IV SCH (03:00)
--- NOTE | 2018-06-09 03:16 | RADIOLOGY REPORT (SQ) ---
EXAM DESCRIPTION: CT CHEST WITHOUT IV CONTRAST COMPLETED DATE/TME: 06/09/2018 00:00 CLINICAL HISTORY: 77 years Male, pneunomia Comparison: 1.19.16. 3. 1516, report only. CR, 01/29/2018. Technique: No contrast. Coronal and sagittal reformat. This exam was performed according to our departmental dose-optimization program, which includes automated exposure control, adjustment of the mA and/or kV according to patient size and/or use of iterative reconstruction technique. [facility]: Dose Right [facility]: CareDose [facility]: Dose Right [facility]: Teradose 4D [facility]: AngelPrime LIMITATIONS: None Findings: New/worsened small-moderate mixed streaky and nodular opacity of the bilateral lower lobes, left more than right, and lingula. Moderate coronary arterial calcification, atherosclerosis, sternotomy, moderate emphysematous lung parenchyma, moderate right upper lobar fibrosis-scar. Unenhanced inferior neck, axillae, mediastinum, airway, lymphatics, heart, vasculature, upper abdomen, and musculoskeleton appear otherwise unremarkable. Impression: New/worsened streaky nodular opacity bilateral lower lungs. Differential etiologies include infectious, inflammatory, and neoplastic processes.
[2018-06-09 03:24] LABS: CREATINE KINASE MB 0.81 ng/mL (<4.55)
[2018-06-09 03:51] LABS: ARTERIAL BLOOD BASE EXCESS -3.3 mmol/L; ARTERIAL BLOOD H2CO3 1.03 mmol/L (1.05-1.35); ARTERIAL BLOOD HCO3 20.7 mmol/L (20-26); ARTERIAL BLOOD O2 SATURATION 92.8 % (94-98); ARTERIAL BLOOD PCO2 34.3 mmHg (35-45); ARTERIAL BLOOD PO2 64.4 mmHg (80-100); ARTERIAL BLOOD TOTAL CO2 21.8 mmol/L (23-27)
[2018-06-09 03:56] LABS: ARTERIAL BLOOD FIO2 ROOM AIR
[2018-06-09] MEDS: NORMAL SALINE 1000 ML 1,000 ML IV PRN ×2 (04:31→20:48)
[2018-06-09] MEDS ORDERED: ALBUTEROL SULFATE HFA (90 MCG/PUFF) 200 PUFF/8.5 GM MDI IH PRN (06:50)
[2018-06-09] MEDS: CEFEPIME 2 GM/D5W RTU 2 GM/50 ML RTUPB IV SCH ×2 (09:39→21:27)
[2018-06-09] MEDS: ASPIRIN 81 MG TABLET, ENT COATED PO SCH (09:40)
[2018-06-09] MEDS: LISINOPRIL 5 MG TABLET PO SCH (09:40)
[2018-06-09] MEDS: CHOLECALCIFEROL (D3) 1,000 UNIT TABLET PO SCH (09:40)
[2018-06-09] MEDS: TIOTROPIUM BROMIDE DPI 5 CAP/KIT (18 MCG/CAP) IH SCH (09:41)
[2018-06-09] MEDS: SITAGLIPTIN PHOSPHATE 50 MG TABLET PO SCH (09:41)
[2018-06-09] MEDS: ENOXAPARIN SODIUM INJ 40 MG/0.4 ML DISP.SYRIN SUBCUT SCH (09:45)
--- NOTE | 2018-06-09 10:47 | EKG REPORT ---
SEVERITY:- BORDERLINE ECG - SINUS TACHYCARDIA CONSIDER RIGHT VENTRICULAR HYPERTROPHY : Confirmed by: Jagruti Lara 09-Jun-2018 10:46:41
[2018-06-09 13:26] LABS: APPEARANCE,URINE CLEAR; BILIRUBIN,URINE NEGATIVE (NEGATIVE); COLOR,URINE YELLOW; GLUCOSE, URINE NEGATIVE (NEGATIVE); KETONES,URINE NEGATIVE (NEGATIVE); LEUKOCYTE ESTERASE,URINE NEGATIVE (NEGATIVE); NITRITE,URINE NEGATIVE (NEGATIVE); PROTEIN,URINE 100 mg/dL (NEGATIVE); URINE SPECIFIC GRAVITY 1.011; UROBILINOGEN,URINE NEGATIVE mg/dL (<2.0)
--- NOTE | 2018-06-09 13:30 | PDOC H&P ---
History of Present Illness Admission Date/PCP: 06/08/18 23:26 STEPHANIE PERES MD History of Present Illness: KELSI SIDHU is a 77 year old male, he came to the emergency room for evaluation of respiratory symptoms, cough productive of sputum, fever with rigors,he saw DR Peres in the office earlier in the week, he was prescribed antibiotic. In the emergency room he was evaluated, the hemogram showed leukocytosis, chest x-ray demonstrated increased airspace nodular opacities in both lung bases, no pleural effusion no pneumothorax. There is chronic interstitial emphysematous changes bilaterally. CT chest without contrast was ordered, it demonstrated moderate streaky and nodular opacity of the bilateral lower lobes left more than right, moderate emphysema lung parenchyma, moderate right upper lobe fibrosis/scar. 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 He told me that he was not advised in the past of having chronic interstitial lung disease. Patient definitely underlining chronic lung disease, COPD/chronic interstitial lung disease, he has history of CAD status post CABG in 2007. Past Medical History Cardiac Medical History: Reports: Coronary Artery Disease, Myocardial Infarction , Hyperlipidema, Hypertension Pulmonary Medical History: Reports: Chronic Obstructive Pulmonary Disease (COPD) Endocrine Medical History: Reports: Diabetes Mellitus Type 2 GI Medical History: Reports: Gastroesophageal Reflux Disease Past Surgical History Past Surgical History: Reports: Cardiac Catheterization, Coronary Artery Bypass Graft Social History Smoking Status: Never Smoker Frequency of Alcohol Use: None Hx Recreational Drug Use: No Drugs: None Hx Prescription Drug Abuse: No Family History Family History: Reviewed & Not Pertinent Parental Family History Reviewed: Yes Children Family History Reviewed: Yes Sibling(s) Family History Reviewed.: Yes Medication/Allergy Home Medications: Albuterol Sulfate [Proair HFA] 1 puff IH Q6HP PRN 01/18/18 Aspirin [Adult Low Dose Aspirin EC] 81 mg PO DAILY 01/18/18 Cholecalciferol (Vitamin D3) [Vitamin D3] 2,000 unit PO DAILY 01/18/18 Fluticasone/Salmeterol [Advair 250-50 Diskus 28 dose] 1 puff IH Q12 01/18/18 Ipratropium/Albuterol Sulfate [Duoneb 3 ml Ampul] 3 ml NEB Q8HP PRN 01/18/18 Lisinopril [Zestril] 5 mg PO DAILY 01/18/18 Metformin HCl [Glucophage 500 mg Tablet] 500 mg PO BID 01/18/18 Metoprolol Tartrate [Lopressor 50 mg Tablet] 50 mg PO Q12 01/18/18 Nitroglycerin [Nitrolingual] 1 spray SL Q5MP PRN 01/18/18 Sitagliptin Phosphate [Januvia] 100 mg PO DAILY 01/18/18 Tiotropium Gilbert [Spiriva Handihaler 18 mcg/dose (30 Dose)] 1 puff IH DAILY Rosuvastatin Calcium 40 mg PO QHS 06/08/18 Allergies/Adverse Reactions: No Known Allergies Allergy (Verified 06/08/18 21:47) Review of Systems Constitutional: ABSENT: chills, fever(s), headache(s), weight gain, weight loss Eyes: ABSENT: visual disturbances Ears: ABSENT: hearing changes Cardiovascular: ABSENT: as per HPI, chest pain, dyspnea on exertion, edema, orthropnea, palpitations, other Respiratory: PRESENT: cough, sputum Gastrointestinal: ABSENT: abdominal pain, constipation, diarrhea, hematemesis, hematochezia, nausea, vomiting Genitourinary: ABSENT: dysuria, hematuria Musculoskeletal: ABSENT: joint swelling Integumentary: ABSENT: rash, wounds Neurological: ABSENT: abnormal gait, abnormal speech, confusion, dizziness, focal weakness, syncope Psychiatric: ABSENT: anxiety, depression, homidical ideation, suicidal ideation Endocrine: ABSENT: cold intolerance, heat intolerance, menstrual abnormalities, polydipsia, polyuria Hematologic/Lymphatic: ABSENT: easy bleeding, easy bruising, lymphadenopathy Physical Exam Vital Signs: Temp Pulse Resp BP Pulse Ox 97.3 F 78 26 H 151/73 H 96 06/09/18 11:07 06/09/18 11:07 06/09/18 11:07 06/09/18 11:07 06/09/18 11:07 Intake & Output 06/08/18 06/09/18 06/10/18 06:59 06:59 06:59 Intake Total 142 550 Balance 142 550 Weight 60.8 kg General appearance: PRESENT: no acute distress, well-developed, well-nourished Head exam: PRESENT: atraumatic, normocephalic Eye exam: PRESENT: conjunctiva pink, EOMI, PERRLA Ear exam: PRESENT: normal external ear exam Mouth exam: PRESENT: moist, tongue midline Neck exam: PRESENT: full ROM. ABSENT: carotid bruit, JVD, lymphadenopathy, thyromegaly Respiratory exam: PRESENT: rales, rhonchi Cardiovascular exam: PRESENT: RRR, +S1, +S2 Pulses: PRESENT: normal dorsalis pedis pul, +2 pedal pulses bilateral Vascular exam: PRESENT: normal capillary refill GI/Abdominal exam: PRESENT: normal bowel sounds, soft Rectal exam: PRESENT: deferred Neurological exam: PRESENT: alert, awake, oriented to person, oriented to place , oriented to time, oriented to situation, CN II-XII grossly intact Psychiatric exam: PRESENT: appropriate affect, normal mood Skin exam: PRESENT: dry, intact, warm Results Laboratory Results: 06/09/18 03:45 Carbonic Acid 1.03 L HCO3/H2CO3 Ratio 20:1 ABG pH 7.40 ABG pCO2 34.3 L ABG pO2 64.4 L ABG HCO3 20.7 ABG O2 Saturation 92.8 L ABG Base Excess -3.3 FiO2 ROOM AIR 06/09/18 06/09/18 06/09/18 02:47 02:47 02:47 Creatine Kinase 75 CK-MB (CK-2) 0.81 Troponin I 0.016 NT-Pro-B Natriuret Pep 622 H Impressions: Chest X-Ray 06/08/18 21:23 IMPRESSION: There are increased airspace -nodular opacities in both lung bases. No pleural effusion. Assessment & Plan - Diagnosis (1) Pneumonia Qualifiers: Pneumonia type: due to unspecified organism Laterality: bilateral Lung location: unspecified part of lung Qualified Code(s): J18.9 - Pneumonia, unspecified organism Is this a current diagnosis for this admission?: Yes Plan: Patient presents with pneumonia, history of underlining chronic interstitial lung disease/COPD is admitted to be treated for community-acquired pneumonia (2) Chronic obstructive pulmonary disease Qualifiers: COPD type: chronic bronchitis Is this a current diagnosis for this admission?: Yes (3) Type 2 diabetes mellitus Qualifiers: Diabetes mellitus termite control representative insulin use: without termite control representative use Diabetes mellitus complication status: with neurologic complications Diabetes mellitus complication detail: with polyneuropathy Qualified Code(s): E11.42 - Type 2 diabetes mellitus with diabetic polyneuropathy Is this a current diagnosis for this admission?: Yes
[2018-06-09] MEDS: METOPROLOL TARTRATE 50 MG TABLET PO SCH (17:39)
[2018-06-09] MEDS: METFORMIN HCL 500 MG TABLET PO SCH (17:39)
[2018-06-09] MEDS: FLUTICASONE/SALMETEROL DISKUS 250-50 MCG/DOSE IH SCH (17:40)
[2018-06-09] MEDS: ATORVASTATIN CALCIUM 80 MG TABLET PO SCH (21:28)
[2018-06-10 05:01] LABS: ABSOLUTE EOSINOPHILS # (AUTO) 0.2 10^3/uL (0.0-0.6); ABSOLUTE LYMPHOCYTES (AUTO) 1.4 10^3/uL (0.5-4.7); ABSOLUTE NEUT (AUTO) 6.2 10^3/uL (1.7-8.2); BASOPHILS % (AUTO) 0.4 % (0-2); EOSINOPHILS % (AUTO) 2.1 % (0-6); HEMATOCRIT 42.6 % (37.9-51.0); HEMOGLOBIN 14.8 g/dL (13.5-17.0); LYMPHOCYTES % (AUTO) 16.4 % (13-45); MEAN CORPUSCULAR HEMOGLOBIN 32.4 pg (27.0-33.4); MEAN CORPUSCULAR HGB CONC 34.8 g/dL (32.0-36.0); MEAN CORPUSCULAR VOLUME 93 fl (80-97); MONOCYTES % (AUTO) 11.2 % (3-13); PLATELET COUNT 124 10^3/uL (150-450); RED BLOOD COUNT 4.57 10^6/uL (4.35-5.55); RED CELL DISTRIBUTION WIDTH 13.5 % (11.5-14.0); SEGMENTED NEUTROPHILS % (AUTO) 69.9 % (42-78); TOTAL CELLS COUNTED % (AUTO) 100 %; WHITE BLOOD COUNT 8.8 10^3/uL (4.0-10.5)
[2018-06-10 05:28] LABS: ALANINE AMINOTRANSFERASE 69 U/L (21-72); ALBUMIN 3.1 g/dL (3.5-5.0); ALKALINE PHOSPHATASE 72 U/L (38-126); ANION GAP 11 (5-19); ASPARTATE AMINO TRANSFERASE 67 U/L (17-59); BILIRUBIN,DIRECT 0.6 mg/dL (0.0-0.4); BILIRUBIN,TOTAL 2.3 mg/dL (0.2-1.3); BLOOD UREA NITROGEN 13 mg/dL (7-20); CALCIUM 8.8 mg/dL (8.4-10.2); CARBON DIOXIDE 23 mmol/L (22-30); CHLORIDE 109 mmol/L (98-107); GLUCOSE 167 mg/dL (75-110); POTASSIUM 4.4 mmol/L (3.6-5.0); TOTAL PROTEIN 6.6 g/dL (6.3-8.2)
[2018-06-10] MEDS: FLUTICASONE/SALMETEROL DISKUS 250-50 MCG/DOSE IH SCH ×2 (06:42→17:50)
[2018-06-10] MEDS: SITAGLIPTIN PHOSPHATE 50 MG TABLET PO SCH (09:55)
[2018-06-10] MEDS: LISINOPRIL 5 MG TABLET PO SCH (09:55)
[2018-06-10] MEDS: CHOLECALCIFEROL (D3) 1,000 UNIT TABLET PO SCH (09:56)
[2018-06-10] MEDS: METOPROLOL TARTRATE 50 MG TABLET PO SCH ×2 (09:56→17:49)
[2018-06-10] MEDS: ASPIRIN 81 MG TABLET, ENT COATED PO SCH (09:56)
[2018-06-10] MEDS: METFORMIN HCL 500 MG TABLET PO SCH ×2 (09:57→17:50)
[2018-06-10] MEDS: CEFEPIME 2 GM/D5W RTU 2 GM/50 ML RTUPB IV SCH ×2 (09:57→21:19)
[2018-06-10] MEDS: ENOXAPARIN SODIUM INJ 40 MG/0.4 ML DISP.SYRIN SUBCUT SCH (09:59)
[2018-06-10] MEDS: TIOTROPIUM BROMIDE DPI 5 CAP/KIT (18 MCG/CAP) IH SCH (10:00)
--- NOTE | 2018-06-10 12:54 | PDOC PROGRESS REPORT ---
Subjective Progress Note for:: 06/10/18 Subjective:: Patient seen by the bedside, he complained of chest pain with cough Reason For Visit: PNEUMONIA, COPD Physical Exam Vital Signs: Temp Pulse Resp BP Pulse Ox 98.8 F 78 14 98/70 L 97 06/10/18 11:11 06/10/18 11:11 06/10/18 11:11 06/10/18 11:11 06/10/18 11:11 Intake & Output 06/09/18 06/10/18 06/11/18 06:59 06:59 06:59 Intake Total 142 2118 50 Balance 142 2118 50 Weight 60.8 kg 57.9 kg General appearance: PRESENT: no acute distress Eye exam: PRESENT: PERRLA Respiratory exam: PRESENT: clear to auscultation eve Cardiovascular exam: PRESENT: +S1, +S2 GI/Abdominal exam: PRESENT: soft Neurological exam: PRESENT: alert Results Laboratory Results: 06/10/18 03:59 06/10/18 03:59 06/09/18 06/10/18 06/10/18 12:20 03:59 03:59 WBC 8.8 RBC 4.57 Hgb 14.8 Hct 42.6 MCV 93 MCH 32.4 MCHC 34.8 RDW 13.5 Plt Count 124 L Seg Neutrophils % 69.9 Lymphocytes % 16.4 Monocytes % 11.2 Eosinophils % 2.1 Basophils % 0.4 Absolute Neutrophils 6.2 Absolute Lymphocytes 1.4 Absolute Monocytes 1.0 Absolute Eosinophils 0.2 Absolute Basophils 0.0 Sodium 143.0 Potassium 4.4 Chloride 109 H Carbon Dioxide 23 Anion Gap 11 BUN 13 Creatinine 1.35 H Est GFR ( Amer) > 60 Est GFR (Non-Af Amer) 51 L Glucose 167 H Calcium 8.8 Total Bilirubin 2.3 H AST 67 H ALT 69 Alkaline Phosphatase 72 Total Protein 6.6 Albumin 3.1 L Urine Color YELLOW Urine Appearance CLEAR Urine pH 6.0 Ur Specific Manning 1.011 Urine Protein 100 H Urine Glucose (UA) NEGATIVE Urine Ketones NEGATIVE Urine Blood SMALL H Urine Nitrite NEGATIVE Ur Leukocyte Esterase NEGATIVE Urine WBC (Auto) 5 Urine RBC (Auto) 0 06/09/18 06/09/18 06/09/18 02:47 02:47 02:47 Creatine Kinase 75 CK-MB (CK-2) 0.81 Troponin I 0.016 NT-Pro-B Natriuret Pep 622 H Impressions: Chest X-Ray 06/08/18 21:23 IMPRESSION: There are increased airspace -nodular opacities in both lung bases. No pleural effusion. Assessment & Plan - Diagnosis (1) Pneumonia Qualifiers: Pneumonia type: due to unspecified organism Laterality: bilateral Lung location: unspecified part of lung Qualified Code(s): J18.9 - Pneumonia, unspecified organism Is this a current diagnosis for this admission?: Yes Plan: Continue IV antibiotic (2) Chronic obstructive pulmonary disease Qualifiers: COPD type: chronic bronchitis Is this a current diagnosis for this admission?: Yes (3) Type 2 diabetes mellitus Qualifiers: Diabetes mellitus residential insulin use: without residential use Diabetes mellitus complication status: with neurologic complications Diabetes mellitus complication detail: with polyneuropathy Qualified Code(s): E11.42 - Type 2 diabetes mellitus with diabetic polyneuropathy Is this a current diagnosis for this admission?: Yes
[2018-06-10] MEDS ORDERED: ACETAMINOPHEN 325 MG TABLET PO PRN (13:37)
[2018-06-10] MEDS: NORMAL SALINE 1000 ML 1,000 ML IV PRN (14:33)
[2018-06-10] MEDS: ATORVASTATIN CALCIUM 80 MG TABLET PO SCH (21:21)
[2018-06-10] MEDS ORDERED: LEVOFLOXACIN 750 MG/D5W RTU 750 MG/150 ML RTUPB IV SCH (22:00)
[2018-06-11 05:19] LABS: ABSOLUTE EOSINOPHILS # (AUTO) 0.2 10^3/uL (0.0-0.6); ABSOLUTE LYMPHOCYTES (AUTO) 1.5 10^3/uL (0.5-4.7); ABSOLUTE MONOCYTES (AUTO) 0.9 10^3/uL (0.1-1.4); ABSOLUTE NEUT (AUTO) 4.8 10^3/uL (1.7-8.2); BASOPHILS % (AUTO) 0.3 % (0-2); EOSINOPHILS % (AUTO) 2.7 % (0-6); HEMATOCRIT 36.8 % (37.9-51.0); HEMOGLOBIN 12.9 g/dL (13.5-17.0); LYMPHOCYTES % (AUTO) 19.5 % (13-45); MEAN CORPUSCULAR HEMOGLOBIN 32.5 pg (27.0-33.4); MEAN CORPUSCULAR HGB CONC 35.2 g/dL (32.0-36.0); MEAN CORPUSCULAR VOLUME 92 fl (80-97); MONOCYTES % (AUTO) 12.7 % (3-13); PLATELET COUNT 122 10^3/uL (150-450); RED BLOOD COUNT 3.98 10^6/uL (4.35-5.55); RED CELL DISTRIBUTION WIDTH 13.4 % (11.5-14.0); SEGMENTED NEUTROPHILS % (AUTO) 64.8 % (42-78); TOTAL CELLS COUNTED % (AUTO) 100 %; WHITE BLOOD COUNT 7.5 10^3/uL (4.0-10.5)
[2018-06-11 06:03] LABS: ALANINE AMINOTRANSFERASE 64 U/L (21-72); ALBUMIN 2.8 g/dL (3.5-5.0); ALKALINE PHOSPHATASE 71 U/L (38-126); ANION GAP 10 (5-19); ASPARTATE AMINO TRANSFERASE 47 U/L (17-59); BILIRUBIN,DIRECT 0.4 mg/dL (0.0-0.4); BILIRUBIN,TOTAL 1.9 mg/dL (0.2-1.3); BLOOD UREA NITROGEN 14 mg/dL (7-20); CALCIUM 8.3 mg/dL (8.4-10.2); CARBON DIOXIDE 20 mmol/L (22-30); CHLORIDE 110 mmol/L (98-107); GLUCOSE 106 mg/dL (75-110); SODIUM 140.3 mmol/L (137-145); TOTAL PROTEIN 5.9 g/dL (6.3-8.2)
[2018-06-11] MEDS: FLUTICASONE/SALMETEROL DISKUS 250-50 MCG/DOSE IH SCH ×2 (06:56→18:18)
[2018-06-11] MEDS: NORMAL SALINE 1000 ML 1,000 ML IV PRN (08:30)
[2018-06-11] MEDS: METFORMIN HCL 500 MG TABLET PO SCH ×2 (11:12→17:09)
[2018-06-11] MEDS: LISINOPRIL 5 MG TABLET PO SCH (11:13)
[2018-06-11] MEDS: CHOLECALCIFEROL (D3) 1,000 UNIT TABLET PO SCH (11:13)
[2018-06-11] MEDS: METOPROLOL TARTRATE 50 MG TABLET PO SCH ×2 (11:13→17:10)
[2018-06-11] MEDS: ASPIRIN 81 MG TABLET, ENT COATED PO SCH (11:13)
[2018-06-11] MEDS: SITAGLIPTIN PHOSPHATE 50 MG TABLET PO SCH (11:13)
[2018-06-11] MEDS: TIOTROPIUM BROMIDE DPI 5 CAP/KIT (18 MCG/CAP) IH SCH (11:16)
[2018-06-11] MEDS: CEFEPIME 2 GM/D5W RTU 2 GM/50 ML RTUPB IV SCH ×2 (11:16→21:08)
[2018-06-11] MEDS: ENOXAPARIN SODIUM INJ 40 MG/0.4 ML DISP.SYRIN SUBCUT SCH (11:22)
--- NOTE | 2018-06-11 15:59 | RADIOLOGY REPORT (SQ) ---
EXAM DESCRIPTION: CHEST 2 VIEWS COMPLETED DATE/TIME: 06/11/2018 3:49 pm REASON FOR STUDY: pnemonia COMPARISON: 06/08/2018 EXAM PARAMETERS: NUMBER OF VIEWS: two views TECHNIQUE: Digital Frontal and Lateral radiographic views of the chest acquired. RADIATION DOSE: NA LIMITATIONS: none FINDINGS: LUNGS AND PLEURA: The previously described nodular opacities in both lung bases appears st able. Chronic appearing changes are again identified. No acute consolidations or pleural effusions are identified. No pneumothorax is seen. MEDIASTINUM AND HILAR STRUCTURES: No masses or contour abnormalities. HEART AND VASCULAR STRUCTURES: The configuration of the heart mediastinal structures is unchanged BONES: No acute findings. HARDWARE: Patient is status post median sternotomy with coronary bypass surgery. OTHER: No other significant finding. IMPRESSION: No significant interval change. Findings as noted above. TECHNICAL DOCUMENTATION: JOB ID: [id number] [employer]- All Rights Reserved Reading location - IP/workstation name: [email or web address]
--- NOTE | 2018-06-11 16:07 | PDOC PROGRESS REPORT ---
Subjective Progress Note for:: 06/11/18 Subjective:: Patient is currently doing well Because of the pneumonia and failed outpatient p.o. treatments Patient's currently denied any chest pain denied any shortness of the breath No fever no chills Reason For Visit: PNEUMONIA, COPD Physical Exam Vital Signs: Temp Pulse Resp BP Pulse Ox 98.0 F 90 16 146/64 H 96 06/11/18 11:43 06/11/18 15:22 06/11/18 15:22 06/11/18 11:43 06/11/18 15:22 Intake & Output 06/10/18 06/11/18 06/12/18 06:59 06:59 06:59 Intake Total 2118 2983 474 Balance 2118 2983 474 Weight 57.9 kg 59.9 kg General appearance: PRESENT: no acute distress, well-developed, well-nourished Head exam: PRESENT: atraumatic, normocephalic Eye exam: PRESENT: conjunctiva pink, EOMI, PERRLA. ABSENT: scleral icterus Ear exam: PRESENT: normal external ear exam Mouth exam: PRESENT: moist, tongue midline Neck exam: PRESENT: full ROM. ABSENT: carotid bruit, JVD, lymphadenopathy, thyromegaly Respiratory exam: PRESENT: clear to auscultation eve Cardiovascular exam: PRESENT: RRR. ABSENT: diastolic murmur, rubs, systolic murmur Pulses: PRESENT: normal dorsalis pedis pul, +2 pedal pulses bilateral Vascular exam: PRESENT: normal capillary refill GI/Abdominal exam: PRESENT: normal bowel sounds, soft. ABSENT: distended, guarding, mass, organolmegaly, rebound, tenderness Rectal exam: PRESENT: deferred Extremities exam: ABSENT: pedal edema Musculoskeletal exam: PRESENT: ambulatory Neurological exam: PRESENT: alert, awake, oriented to person, oriented to place , oriented to time, oriented to situation, CN II-XII grossly intact. ABSENT: motor sensory deficit Psychiatric exam: PRESENT: appropriate affect, normal mood. ABSENT: homicidal ideation, suicidal ideation Skin exam: PRESENT: dry, intact, warm. ABSENT: cyanosis, rash Results Laboratory Results: 06/11/18 03:59 06/11/18 03:59 06/11/18 06/11/18 03:59 03:59 WBC 7.5 RBC 3.98 L Hgb 12.9 L Hct 36.8 L MCV 92 MCH 32.5 MCHC 35.2 RDW 13.4 Plt Count 122 L Seg Neutrophils % 64.8 Lymphocytes % 19.5 Monocytes % 12.7 Eosinophils % 2.7 Basophils % 0.3 Absolute Neutrophils 4.8 Absolute Lymphocytes 1.5 Absolute Monocytes 0.9 Absolute Eosinophils 0.2 Absolute Basophils 0.0 Sodium 140.3 Potassium 4.0 Chloride 110 H Carbon Dioxide 20 L Anion Gap 10 BUN 14 Creatinine 1.26 H Est GFR ( Amer) > 60 Est GFR (Non-Af Amer) 55 L Glucose 106 Calcium 8.3 L Total Bilirubin 1.9 H AST 47 ALT 64 Alkaline Phosphatase 71 Total Protein 5.9 L Albumin 2.8 L 06/09/18 12:20 Clean Catch Midstream Urine Culture - Final NO GROWTH 2 DAYS 06/09/18 19:56 Sputum Gram Stain - Final 06/09/18 19:56 Sputum Sputum Culture - Final NORMAL ANJALI 06/09/18 06/09/18 06/09/18 02:47 02:47 02:47 Creatine Kinase 75 CK-MB (CK-2) 0.81 Troponin I 0.016 NT-Pro-B Natriuret Pep 622 H Impressions: Chest X-Ray 06/11/18 00:00 IMPRESSION: No significant interval change. Findings as noted above. Assessment & Plan - Diagnosis (1) Pneumonia Qualifiers: Pneumonia type: due to unspecified organism Laterality: bilateral Lung location: lower lobe of lung Qualified Code(s): J18.1 - Lobar pneumonia, unspecified organism Is this a current diagnosis for this admission?: Yes Plan: Currently doing well will switch to p.o. antibiotic full discharge in next 24 hours (2) Chronic obstructive pulmonary disease Qualifiers: COPD type: chronic bronchitis Is this a current diagnosis for this admission?: Yes Plan: Continues to current medications (3) Coronary artery disease Qualifiers: Coronary Disease-Associated Artery/Lesion type: [place] artery Is this a current diagnosis for this admission?: Yes Plan: Currently all stable patient's for outpatient is Dr. Pretty (4) Hypertension Qualifiers: Hypertension type: essential hypertension Qualified Code(s): I10 - Essential (primary) hypertension Is this a current diagnosis for this admission?: Yes Plan: Stable (5) Sleep apnea Qualifiers: Sleep apnea type: unspecified type Qualified Code(s): G47.30 - Sleep apnea , unspecified Is this a current diagnosis for this admission?: Yes Plan: Continues use a CPAP (6) Type 2 diabetes mellitus Qualifiers: Diabetes mellitus prison insulin use: without prison use Diabetes mellitus complication status: with neurologic complications Diabetes mellitus complication detail: with polyneuropathy Qualified Code(s): E11.42 - Type 2 diabetes mellitus with diabetic polyneuropathy Is this a current diagnosis for this admission?: Yes Plan: Currently all stable - Time Time Spent with patient: 15-24 minutes Medications reviewed and adjusted accordingly: Yes Anticipated discharge: Home Within: within 24 hours - Inpatient Certification Medical Necessity: Need Close Monitoring Due to Risk of Patient Decompensation, Need for IV Antibiotics Post Hospital Care: D/C Inhalation Therapist Documentation - Plan Summary Plan Summary: Discussed with the patient's and the son regarding the patient's current conditions
[2018-06-11] MEDS: ATORVASTATIN CALCIUM 80 MG TABLET PO SCH (21:08)
[2018-06-12 04:59] LABS: ABSOLUTE BASOPHILS # (AUTO) 0.1 10^3/uL (0.0-0.2); ABSOLUTE EOSINOPHILS # (AUTO) 0.2 10^3/uL (0.0-0.6); ABSOLUTE LYMPHOCYTES (AUTO) 1.6 10^3/uL (0.5-4.7); ABSOLUTE MONOCYTES (AUTO) 1.1 10^3/uL (0.1-1.4); BASOPHILS % (AUTO) 0.6 % (0-2); EOSINOPHILS % (AUTO) 1.9 % (0-6); HEMATOCRIT 37.3 % (37.9-51.0); LYMPHOCYTES % (AUTO) 17.7 % (13-45); MEAN CORPUSCULAR HEMOGLOBIN 32.4 pg (27.0-33.4); MEAN CORPUSCULAR HGB CONC 34.9 g/dL (32.0-36.0); MEAN CORPUSCULAR VOLUME 93 fl (80-97); MONOCYTES % (AUTO) 12.2 % (3-13); PLATELET COUNT 135 10^3/uL (150-450); RED BLOOD COUNT 4.02 10^6/uL (4.35-5.55); RED CELL DISTRIBUTION WIDTH 13.6 % (11.5-14.0); SEGMENTED NEUTROPHILS % (AUTO) 67.6 % (42-78); TOTAL CELLS COUNTED % (AUTO) 100 %; WHITE BLOOD COUNT 8.9 10^3/uL (4.0-10.5)
[2018-06-12 05:21] LABS: ALANINE AMINOTRANSFERASE 54 U/L (21-72); ALBUMIN 2.8 g/dL (3.5-5.0); ALKALINE PHOSPHATASE 65 U/L (38-126); ANION GAP 11 (5-19); ASPARTATE AMINO TRANSFERASE 34 U/L (17-59); BILIRUBIN,DIRECT 0.4 mg/dL (0.0-0.4); BILIRUBIN,TOTAL 2.1 mg/dL (0.2-1.3); BLOOD UREA NITROGEN 13 mg/dL (7-20); CALCIUM 8.6 mg/dL (8.4-10.2); CARBON DIOXIDE 21 mmol/L (22-30); CHLORIDE 108 mmol/L (98-107); GLUCOSE 99 mg/dL (75-110); POTASSIUM 3.8 mmol/L (3.6-5.0); SODIUM 140.3 mmol/L (137-145); TOTAL PROTEIN 5.9 g/dL (6.3-8.2)
[2018-06-12] MEDS: NORMAL SALINE 1000 ML 1,000 ML IV PRN (06:10)
[2018-06-12] MEDS: FLUTICASONE/SALMETEROL DISKUS 250-50 MCG/DOSE IH SCH (08:42)
--- NOTE | 2018-06-12 08:44 | PDOC DISCHARGE SUMMARY ---
General - Admit/Disc Date/PCP Admission Date/Primary Care Provider: 06/08/18 23:26 STEPHANIE PERES MD Discharge Date: 06/12/18 - Discharge Diagnosis (1) Pneumonia Is this a current diagnosis for this admission?: Yes Summary: Currently all resolvingFollow-up outpatients pulmonary Continues the p.o. antibiotic for 7 days (2) Chronic obstructive pulmonary disease Is this a current diagnosis for this admission?: Yes Summary: Continues to nebulizer treatments (3) Coronary artery disease Is this a current diagnosis for this admission?: Yes Summary: Currently all stable follow-up with the cardiology as outpatient (4) Hypertension Is this a current diagnosis for this admission?: Yes Summary: Currently all stable (5) Sleep apnea Is this a current diagnosis for this admission?: Yes Summary: Continues use his CPAP (6) Type 2 diabetes mellitus Is this a current diagnosis for this admission?: Yes Summary: Continues the current medication - Additional Information Discharge Diet: Diabetic Discharge Activity: Activity As Tolerated Prescriptions: Cefdinir 300 mg PO BID #14 capsule Guaifenesin [Mucinex] 600 mg PO BID #60 tab.er.12h Home Medications: Albuterol Sulfate [Proair HFA] 1 puff IH Q6HP PRN 01/18/18 Aspirin [Adult Low Dose Aspirin EC] 81 mg PO DAILY 01/18/18 Cholecalciferol (Vitamin D3) [Vitamin D3] 2,000 unit PO DAILY 01/18/18 Fluticasone/Salmeterol [Advair 250-50 Diskus 28 dose] 1 puff IH Q12 01/18/18 Ipratropium/Albuterol Sulfate [Duoneb 3 ml Ampul] 3 ml NEB Q8HP PRN 01/18/18 Lisinopril [Zestril] 5 mg PO DAILY 01/18/18 Metformin HCl [Glucophage 500 mg Tablet] 500 mg PO BID 01/18/18 Metoprolol Tartrate [Lopressor 50 mg Tablet] 50 mg PO Q12 01/18/18 Nitroglycerin [Nitrolingual] 1 spray SL Q5MP PRN 01/18/18 Sitagliptin Phosphate [Januvia] 100 mg PO DAILY 01/18/18 Tiotropium [place] [Spiriva Handihaler 18 mcg/dose (30 Dose)] 1 puff IH DAILY 03 /15/18 Rosuvastatin Calcium 40 mg PO QHS 06/08/18 Cefdinir 300 mg PO BID #14 capsule 06/12/18 Guaifenesin [Mucinex] 600 mg PO BID #60 tab.er.12h 06/12/18 History of Present Illness History of Present Illness: KELSI SIDHU is a 77 year old male This is a 77-year-old male admitting in the hospital because of the outpatients failure to the p.o. treatments fever and COPD and pneumonia and started on IV antibiotic Hospital Course Hospital Course: This is a 69-year-old male is with the multiple medical problems as above diagnosed with the pneumonia as outpatients just started the p.o. antibiotic but patients who have a fever and chills in patients came to the emergency department in patients was had a CT scan of the chest was done with source most consistent with a pneumonia and patient at this point start an IV antibiotic Patient's response very well with IV antibiotic patient's repeat chest x-rays all stable Patient's p.o. intake is good patient's white count is also normal Patient's remained afebrile Discussed with the patient and the and his son on the bedside patient expressed to go home Patients follow an outpatient as per Dr. Sanabria pulmonary Physical Exam Vital Signs: Temp Pulse Resp BP Pulse Ox 99.0 F 103 H 20 114/54 L 93 06/12/18 03:38 06/12/18 06:55 06/12/18 03:38 06/12/18 03:38 06/12/18 03:38 Intake & Output 06/11/18 06/12/18 06/13/18 06:59 06:59 06:59 Intake Total 2983 1929 Balance 2983 1929 Weight 59.9 kg 61.4 kg General appearance: PRESENT: no acute distress, well-developed, well-nourished Head exam: PRESENT: atraumatic, normocephalic Eye exam: PRESENT: conjunctiva pink, EOMI, PERRLA. ABSENT: scleral icterus Ear exam: PRESENT: normal external ear exam Mouth exam: PRESENT: moist, tongue midline Neck exam: PRESENT: full ROM. ABSENT: carotid bruit, JVD, lymphadenopathy, thyromegaly Respiratory exam: PRESENT: clear to auscultation eve Cardiovascular exam: PRESENT: RRR. ABSENT: diastolic murmur, rubs, systolic murmur Pulses: PRESENT: normal dorsalis pedis pul, +2 pedal pulses bilateral Vascular exam: PRESENT: normal capillary refill GI/Abdominal exam: PRESENT: normal bowel sounds, soft. ABSENT: distended, guarding, mass, organolmegaly, rebound, tenderness Rectal exam: PRESENT: deferred Extremities exam: ABSENT: pedal edema Musculoskeletal exam: PRESENT: ambulatory Neurological exam: PRESENT: alert, awake, oriented to person, oriented to place , oriented to time, oriented to situation, CN II-XII grossly intact. ABSENT: motor sensory deficit Psychiatric exam: PRESENT: appropriate affect, normal mood. ABSENT: homicidal ideation, suicidal ideation Skin exam: PRESENT: dry, intact, warm. ABSENT: cyanosis, rash Results Laboratory Results: 06/12/18 04:01 06/12/18 04:01 06/12/18 06/12/18 04:01 04:01 WBC 8.9 RBC 4.02 L Hgb 13.0 L Hct 37.3 L MCV 93 MCH 32.4 MCHC 34.9 RDW 13.6 Plt Count 135 L Seg Neutrophils % 67.6 Lymphocytes % 17.7 Monocytes % 12.2 Eosinophils % 1.9 Basophils % 0.6 Absolute Neutrophils 6.0 Absolute Lymphocytes 1.6 Absolute Monocytes 1.1 Absolute Eosinophils 0.2 Absolute Basophils 0.1 Sodium 140.3 Potassium 3.8 Chloride 108 H Carbon Dioxide 21 L Anion Gap 11 BUN 13 Creatinine 1.29 H Est GFR ( Amer) > 60 Est GFR (Non-Af Amer) 54 L Glucose 99 Calcium 8.6 Total Bilirubin 2.1 H AST 34 ALT 54 Alkaline Phosphatase 65 Total Protein 5.9 L Albumin 2.8 L 06/09/18 12:20 Clean Catch Midstream Urine Culture - Final NO GROWTH 2 DAYS 06/09/18 19:56 Sputum Gram Stain - Final 06/09/18 19:56 Sputum Sputum Culture - Final NORMAL ANJALI 06/09/18 06/09/18 06/09/18 02:47 02:47 02:47 Creatine Kinase 75 CK-MB (CK-2) 0.81 Troponin I 0.016 NT-Pro-B Natriuret Pep 622 H Impressions: Chest X-Ray 06/11/18 00:00 IMPRESSION: No significant interval change. Findings as noted above. Qualifiers - * PATIENT BEING DISCHARGED WITH ANY OF THE FOLLOWING DIAGNOSIS: No VTE patient discharged on overlapping Therapy?: Yes Plan Time Spent: Greater than 30 Minutes - Discussed with the patient and the family about all the patient's test reports and follow-up
[2018-06-12] MEDS ORDERED: LEVOFLOXACIN 750 MG/D5W RTU 750 MG/150 ML RTUPB IV ONE (09:00)
[2018-06-12] MEDS: METOPROLOL TARTRATE 50 MG TABLET PO SCH (10:17)
[2018-06-12] MEDS: CEFEPIME 2 GM/D5W RTU 2 GM/50 ML RTUPB IV SCH (10:17)
[2018-06-12] MEDS: SITAGLIPTIN PHOSPHATE 50 MG TABLET PO SCH (10:17)
[2018-06-12] MEDS: CHOLECALCIFEROL (D3) 1,000 UNIT TABLET PO SCH (10:18)
[2018-06-12] MEDS: ASPIRIN 81 MG TABLET, ENT COATED PO SCH (10:18)
[2018-06-12] MEDS: LISINOPRIL 5 MG TABLET PO SCH (10:18)
[2018-06-12] MEDS: METFORMIN HCL 500 MG TABLET PO SCH (10:18)
[2018-06-12] MEDS: TIOTROPIUM BROMIDE DPI 5 CAP/KIT (18 MCG/CAP) IH SCH (10:19)
[2018-06-12] MEDS: ENOXAPARIN SODIUM INJ 40 MG/0.4 ML DISP.SYRIN SUBCUT SCH (10:21)
[2018-06-12 10:40] VITALS: BP 124/65
== END 2018-06-12 11:52 | disposition home or self-care (01) | DRG 195 ==
LOC: ER 21:17 → EH 23:26 → 3N 06-09 01:17
PROVIDERS: ADMIT Family Medicine; ATTEND Family Medicine
DX: J18.9 Pneumonia, unspecified organism (principal); E11.42 Type 2 diabetes mellitus with diabetic polyneuropathy; J44.9 Chronic obstructive pulmonary disease, unspecified; I10 Essential (primary) hypertension; I25.10 Atherosclerotic heart disease of native coronary artery without angina pectoris; E78.5 Hyperlipidemia, unspecified; K21.9 Gastro-esophageal reflux disease without esophagitis; G47.30 Sleep apnea, unspecified; I25.2 Old myocardial infarction; Z95.1 Presence of aortocoronary bypass graft; Z79.84 Long term (current) use of oral hypoglycemic drugs; Z79.82 Long term (current) use of aspirin; Z79.51 Long term (current) use of inhaled steroids; Z79.899 Other long term (current) drug therapy
CPT/HCPCS: 36415; 71046; 71250; 80053; 81001; 82550; 82553; 82803; 82962; 83036; 83605; 83880; 84484; 85025; 85610; 87040; 87070; 87086; 87205; 93005; 93010; 94640; 96360; 99291; J0456; J0692; J1650; J1956; J3490; J7030; J7620

== ENCOUNTER → 2018-06-08 | Outpatient (CLI) | payer MEDICARE, MEDICAID ==
--- NOTE | 2018-06-08 13:40 | RADIOLOGY REPORT (SQ) ---
EXAM DESCRIPTION: CHEST PA/LATERAL COMPLETED DATE/TIME: 06/08/2018 12:00 pm REASON FOR STUDY: COUGH COMPARISON: 01/29/2018 EXAM PARAMETERS: NUMBER OF VIEWS: two views TECHNIQUE: Digital Frontal and Lateral radiographic views of the chest acquired. RADIATION DOSE: NA LIMITATIONS: none FINDINGS: LUNGS AND PLEURA: There is persistent bilateral interstitial airspace disease. This has p rogressed since prior exam. Superimposed edema cannot be excluded. There is scarring in the right l ros apex. No effusions. No pneumothorax. MEDIASTINUM AND HILAR STRUCTURES: No masses or contour abnormalities. HEART AND VASCULAR STRUCTURES: Heart normal size. No evidence for failure. BONES: No acute findings. HARDWARE: Sternotomy wires are in place. OTHER: No other significant finding. IMPRESSION: Probable interstitial edema superimposed on chronic interstitial lung disease. Clinical correlation is needed. TECHNICAL DOCUMENTATION: JOB ID: [id number] [email or web address]- All Rights Reserved Reading location - IP/workstation name: [email or web address]
== END ==
LOC: OD 11:17
PROVIDERS: ATTEND Family Medicine
DX: R05 Cough (principal)
CPT/HCPCS: 71046

== ENCOUNTER → 2018-07-02 | Outpatient (CLI) | payer MEDICARE, MEDICAID ==
[2018-07-02 10:29] LABS: ALANINE AMINOTRANSFERASE 30 U/L (21-72); ALKALINE PHOSPHATASE 68 U/L (38-126); ASPARTATE AMINO TRANSFERASE 26 U/L (17-59); BILIRUBIN,DIRECT 0.5 mg/dL (0.0-0.4); BILIRUBIN,TOTAL 2.4 mg/dL (0.2-1.3); CHOLESTEROL 166.48 mg/dL (0-200); CREATINE KINASE 53 U/L (55-170); TOTAL PROTEIN 7.4 g/dL (6.3-8.2); TRIGLYCERIDES 93 mg/dL (<150)
[2018-07-02 10:39] LABS: DIRECT LDL 91 mg/dL (<100)
== END ==
LOC: OD 09:16
PROVIDERS: ATTEND Internal Medicine Cardiovascular Disease
DX: E78.2 Mixed hyperlipidemia (principal); Z79.899 Other long term (current) drug therapy
CPT/HCPCS: 36415; 80061; 80076; 82550

== ENCOUNTER → 2018-08-06 | Outpatient (CLI) | payer MEDICARE, MEDICAID ==
--- NOTE | 2018-08-06 16:23 | RADIOLOGY REPORT (SQ) ---
EXAM DESCRIPTION: U/S RETROPERITON (RENAL/AORTA) COMPLETED DATE/TIME: 08/06/2018 3:13 pm REASON FOR STUDY: ABN KIDNEY FUNCTION (N28.9), ACUTE KIDNEY INJURY (N17.9) N17.9 ACUTE KIDNEY FAILU RE, UNSPECIFIED COMPARISON: None. TECHNIQUE: Dynamic and static grayscale images acquired of the kidneys and bladder and recorded on P ACS. Additional selected color Doppler and spectral images recorded. LIMITATIONS: None. FINDINGS: RIGHT KIDNEY: The right kidney measures 9.3 cm in length, normal size. Mild diffuse incr eased echogenicity is suggested, may be on the basis of underlying medical renal disease. No hydrone phrosis. No calcifications. LEFT KIDNEY: The left kidney measures 9.1 cm in length, normal size. Mild diffuse increased echogen icity of the kidney is suggested, may be on the basis of underlying medical renal disease. No hydron ephrosis. No calcifications. BLADDER: Bilateral ureteral jets are not visualized. The prostate gland measures 5.1 x 3.5 x 4.8 cm and is prominent in size. There is indentation on the base of the urinary bladder may be related to median lobe hypertrophy of the prostate gland. Prostatic concretion. OTHER FINDINGS: No other significant finding. IMPRESSION: 1. No evidence of hydronephrosis. 2. Mild diffuse increased echogenicity of the kidneys may be on the basis of underlying medical renal disease. 3. Prostate gland enlargement. TECHNICAL DOCUMENTATION: JOB ID: [id number] [employer]- All Rights Reserved Reading location - IP/workstation name: [email or web address]
== END ==
LOC: RAD 13:57
PROVIDERS: ATTEND Physician Assistant
DX: N17.9 Acute kidney failure, unspecified (principal); N40.0 Benign prostatic hyperplasia without lower urinary tract symptoms
CPT/HCPCS: 76770

== ENCOUNTER 2018-09-11 19:56 | Inpatient (IN) | payer MEDICARE, MEDICAID ==
[2018-09-11] MEDS ORDERED: IPRATROPIUM/ALBUTEROL 0.5-2.5 MG/3 ML AMPUL NEB ONE (20:10)
[2018-09-11] MEDS ORDERED: METHYLPREDNISOLONE INJ 125 MG/2 ML SDV IV ONE (20:10)
--- NOTE | 2018-09-11 20:32 | RADIOLOGY REPORT (SQ) ---
EXAM DESCRIPTION: CHEST SINGLE VIEW COMPLETED DATE/TIME: 09/11/2018 8:20 pm REASON FOR STUDY: difficulty breathing COMPARISON: 06/11/2018 EXAM PARAMETERS: NUMBER OF VIEWS: One view. TECHNIQUE: Single frontal radiographic view of the chest acquired. RADIATION DOSE: NA LIMITATIONS: None. FINDINGS: LUNGS AND PLEURA: Scarring the right upper lobe. Mild chronic interstitial changes. No f ocal infiltrate. Minimal left pleural effusion. MEDIASTINUM AND HILAR STRUCTURES: No masses. Contour normal. HEART AND VASCULAR STRUCTURES: Borderline heart size. No pulmonary edema. BONES: No acute findings. HARDWARE: Sternotomy wires. Graft markers. OTHER: No other significant finding. IMPRESSION: Chronic lung changes. Borderline cardiomegaly without pulmonary edema. Minimal left pl eural effusion. TECHNICAL DOCUMENTATION: JOB ID: [id number] [employer]- All Rights Reserved Reading location - IP/workstation name: [email or web address]
[2018-09-11] MEDS: ALBUTEROL SULFATE 0.083% NEB 2.5 MG/3 ML AMPUL NEB SCH ×2 (20:43→21:19)
[2018-09-11] MEDS ORDERED: AZITHROMYCIN INJ 500 MG VIAL IV ONE (20:46)
[2018-09-11] MEDS ORDERED: CEFTRIAXONE 1 GM/D5W RTU 1 GM/50 ML RTUPB IV ONE (20:46)
--- NOTE | 2018-09-11 20:47 | ER Document Report ---
ED General - General Chief Complaint: Fever Stated Complaint: FEVER/COUGH Time Seen by Provider: 09/11/18 20:33 Mode of Arrival: Ambulatory Information source: Patient Notes: This is a 77-year-old man with a history COPD, coronary artery disease, chronic kidney disease who is brought in for fever, cough, shortness of breath. Patient 's states that the patient has had a cough on and off for the past 3 weeks. But he started with fever abruptly yesterday. He has been short of breath and dizzy. TRAVEL OUTSIDE OF THE [place] IN LAST 30 DAYS: No - HPI Onset: Yesterday Onset/Duration: Gradual Quality of pain: No pain Severity: None Pain Level: Denies Associated symptoms: Chills, Nonproductive cough, Shortness of breath, Weakness Exacerbated by: Movement Relieved by: Denies Similar symptoms previously: Yes Recently seen / treated by doctor: Yes - Related Data Allergies/Adverse Reactions: No Known Allergies Allergy (Verified 06/08/18 21:47) Past Medical History - General Information source: Patient - Social History Smoking Status: Former Smoker Cigarette use (# per day): No Chew tobacco use (# tins/day): No Smoking Education Provided: No Frequency of alcohol use: None Drug Abuse: None Lives with: Spouse/Significant other Family History: Reviewed & Not Pertinent Patient has suicidal ideation: No Patient has homicidal ideation: No - Past Medical History Cardiac Medical History: Reports: Hx Coronary Artery Disease, Hx Heart Attack, Hx Hypercholesterolemia, Hx Hypertension Pulmonary Medical History: Reports: Hx COPD Endocrine Medical History: Reports: Hx Diabetes Mellitus Type 2 Renal/ Medical History: Denies: Hx Peritoneal Dialysis GI Medical History: Reports: Hx Gastroesophageal Reflux Disease Psychiatric Medical History: Denies: Hx Depression Past Surgical History: Reports: Hx Cardiac Catheterization, Hx Coronary Artery Bypass Graft, Hx Open Heart Surgery - Immunizations Immunizations up to date: Yes Hx Pneumococcal Vaccination: 01/04/18 Review of Systems - Review of Systems Constitutional: Chills, Fever EENT: No symptoms reported Cardiovascular: No symptoms reported. denies: Chest pain, Palpitations Respiratory: Cough, Short of breath, Wheezing Gastrointestinal: No symptoms reported Genitourinary: No symptoms reported Male Genitourinary: No symptoms reported Musculoskeletal: No symptoms reported Skin: No symptoms reported Hematologic/Lymphatic: No symptoms reported Neurological/Psychological: No symptoms reported Physical Exam - Vital signs Vitals: Temp Pulse Resp BP Pulse Ox 101.0 F H 106 H 40 H 126/55 H 90 L 09/11/18 20:07 09/11/18 20:07 09/11/18 20:07 09/11/18 20:07 09/11/18 20:07 Notes: Physical exam: GENERAL: On physical exam, patient's blood pressure is 121/54 with a pulse of 100 and a respiratory rate of 30, his O2 sat is 97% on 2 L. He does state he feels better on the oxygen. HEAD: Atraumatic, normocephalic. EYES: Pupils equal round and reactive to light, extraocular movements intact, sclera anicteric, conjunctiva are normal. ENT: TMs normal, nares patent, oropharynx clear without exudates. Moist mucous membranes. NECK: Normal range of motion, supple without obvious mass or JVD. LUNGS: Guided wheezing and rhonchi bilaterally HEART: Regular rate and rhythm without murmurs, rubs or gallops. ABDOMEN: Soft, normoactive bowel sounds. No tenderness to palpation. No guarding, no rebound. No masses appreciated. EXTREMITIES: Normal range of motion, no pitting or edema. No clubbing or cyanosis. NEUROLOGICAL: Cranial nerves II through XII grossly intact. Normal speech, moving all extremities. PSYCH: Normal mood, normal affect. SKIN: Warm, Dry, normal turgor, no rashes or lesions noted. Course - Re-evaluation Re-evalutation: 09/11/18 22:00 Note: Chest x-ray shows scarring and the official read it if there is no infiltrate. I suspect the patient is developing a right lower lobe infiltrate. In any event, he has leukocytosis, fever and hypoxia and requires oxygen supplementation. Blood cultures have been sent. Lactic acid is 0.9. Patient has received IV ceftriaxone and IV azithromycin along with albuterol and Atrovent nebulizers, IV Solu-Medrol and IV fluids. - Vital Signs Vital signs: Temp Pulse Resp BP Pulse Ox 97.4 F 61 20 107/60 93 09/12/18 04:09 09/12/18 04:09 09/12/18 04:09 09/12/18 04:09 09/12/18 04:09 - Laboratory Result Diagrams: 09/12/18 04:22 09/11/18 20:30 Laboratory results interpreted by me: 09/11/18 09/11/18 09/11/18 20:30 20:30 20:55 WBC 15.6 H RBC 4.18 L Hgb 13.4 L RDW 14.4 H Plt Count 124 L Seg Neutrophils % 83.6 H Lymphocytes % 8.0 L Absolute Neutrophils 13.0 H VBG pCO2 34.8 L Carbon Dioxide 21 L BUN 27 H Creatinine 2.02 H Est GFR ( Amer) 39 L Est GFR (Non-Af Amer) 32 L Glucose 281 H Total Bilirubin 2.5 H Direct Bilirubin 0.6 H AST 81 H - Diagnostic Test Radiology reviewed: Image reviewed, Reports reviewed - Scarring, suspected right lower lobe pneumonia - EKG Interpretation by Me Rate: Normal - EKG shows sinus rhythm with a ventricular rate of 95, signs of LVH, inverted T's in V2 and V3, no significant change from 06/08/18 Critical Care Note - Critical Care Note Total time excluding time spent on procedures (mins): 60 Discharge - Discharge Clinical Impression: COPD exacerbation, Pneumonia, Acute kidney injury Condition: Stable Disposition: ADMITTED INPATIENT Admitting Provider: Chávez Unit Admitted: [facility]
[2018-09-11 20:49] LABS: ABSOLUTE LYMPHOCYTES (AUTO) 1.2 10^3/uL (0.5-4.7); ABSOLUTE MONOCYTES (AUTO) 1.2 10^3/uL (0.1-1.4); BASOPHILS % (AUTO) 0.3 % (0-2); EOSINOPHILS % (AUTO) 0.3 % (0-6); HEMOGLOBIN 13.4 g/dL (13.5-17.0); MEAN CORPUSCULAR HEMOGLOBIN 32.1 pg (27.0-33.4); MEAN CORPUSCULAR HGB CONC 34.4 g/dL (32.0-36.0); MEAN CORPUSCULAR VOLUME 93 fl (80-97); MONOCYTES % (AUTO) 7.8 % (3-13); PLATELET COUNT 124 10^3/uL (150-450); RED BLOOD COUNT 4.18 10^6/uL (4.35-5.55); RED CELL DISTRIBUTION WIDTH 14.4 % (11.5-14.0); SEGMENTED NEUTROPHILS % (AUTO) 83.6 % (42-78); TOTAL CELLS COUNTED % (AUTO) 100 %; WHITE BLOOD COUNT 15.6 10^3/uL (4.0-10.5)
[2018-09-11 20:55] LABS: INTERNATIONAL RATION (INR) 1.04; PROTHROMBIN TIME 14.1 SEC (11.4-15.4)
[2018-09-11 21:09] LABS: ALANINE AMINOTRANSFERASE 49 U/L (21-72); ALBUMIN 3.5 g/dL (3.5-5.0); ALKALINE PHOSPHATASE 99 U/L (38-126); ANION GAP 14 (5-19); ASPARTATE AMINO TRANSFERASE 81 U/L (17-59); BILIRUBIN,DIRECT 0.6 mg/dL (0.0-0.4); BILIRUBIN,TOTAL 2.5 mg/dL (0.2-1.3); BLOOD UREA NITROGEN 27 mg/dL (7-20); CALCIUM 8.8 mg/dL (8.4-10.2); CARBON DIOXIDE 21 mmol/L (22-30); CHLORIDE 103 mmol/L (98-107); GLUCOSE 281 mg/dL (75-110); SODIUM 137.9 mmol/L (137-145)
[2018-09-11 21:12] LABS: VENOUS BLOOD BASE EXCESS -1.9 mmol/L; VENOUS BLOOD HCO3 21.9 mmol/L (20-32); VENOUS BLOOD PCO2 34.8 mmHg (35-63); VENOUS BLOOD PH 7.42 (7.30-7.42)
[2018-09-11 21:42] LABS: A TYPE INFLUENZA AG NEGATIVE (NEGATIVE); B INFLUENZA AG NEGATIVE (NEGATIVE)
[2018-09-11] MEDS ORDERED: ACETAMINOPHEN 325 MG TABLET PO PRN (22:00)
[2018-09-11] MEDS ORDERED: DEXTROSE 40% GEL 15 GM TUBE PO PRN ×2 (22:07)
[2018-09-11] MEDS ORDERED: DEXTROSE 50%-WATER 25 GM/50 ML DISP.SYRIN IV PRN ×2 (22:07)
[2018-09-11] MEDS ORDERED: GLUCAGON,HUMAN RECOMB 1 MG INJ IM PRN (22:07)
[2018-09-11] MEDS ORDERED: FAMOTIDINE 20 MG TABLET PO ONE (23:00)
[2018-09-11] MEDS ORDERED: GUAIFENESIN 600 MG TABLET.SA PO ONE (23:00)
[2018-09-12] MEDS: INSULIN LISPRO 100 UNIT/ML 3 ML VIAL SUBCUT PRN ×4 (00:27→21:32)
[2018-09-12] MEDS: 1/2 NORMAL SALINE 1,000 ML IV PRN ×3 (00:29→16:57)
[2018-09-12 00:52] LABS: APPEARANCE,URINE CLOUDY; BILIRUBIN,URINE NEGATIVE (NEGATIVE); COLOR,URINE YELLOW; GLUCOSE, URINE >=500 mg/dL (NEGATIVE); KETONES,URINE TRACE mg/dL (NEGATIVE); LEUKOCYTE ESTERASE,URINE NEGATIVE (NEGATIVE); NITRITE,URINE NEGATIVE (NEGATIVE); PROTEIN,URINE 100 mg/dL (NEGATIVE); URINE SPECIFIC GRAVITY 1.023; UROBILINOGEN,URINE NEGATIVE mg/dL (<2.0)
[2018-09-12 05:10] LABS: ABSOLUTE LYMPHOCYTES (AUTO) 0.9 10^3/uL (0.5-4.7); ABSOLUTE MONOCYTES (AUTO) 0.3 10^3/uL (0.1-1.4); ABSOLUTE NEUT (AUTO) 12.6 10^3/uL (1.7-8.2); BASOPHILS % (AUTO) 0.1 % (0-2); HEMOGLOBIN 12.7 g/dL (13.5-17.0); LYMPHOCYTES % (AUTO) 6.7 % (13-45); MEAN CORPUSCULAR HEMOGLOBIN 31.9 pg (27.0-33.4); MEAN CORPUSCULAR HGB CONC 34.4 g/dL (32.0-36.0); MEAN CORPUSCULAR VOLUME 93 fl (80-97); MONOCYTES % (AUTO) 2.4 % (3-13); PLATELET COUNT 124 10^3/uL (150-450); RED BLOOD COUNT 3.99 10^6/uL (4.35-5.55); RED CELL DISTRIBUTION WIDTH 14.3 % (11.5-14.0); SEGMENTED NEUTROPHILS % (AUTO) 90.8 % (42-78); TOTAL CELLS COUNTED % (AUTO) 100 %; WHITE BLOOD COUNT 13.9 10^3/uL (4.0-10.5)
[2018-09-12 05:29] LABS: ALANINE AMINOTRANSFERASE 44 U/L (21-72); ALBUMIN 3.2 g/dL (3.5-5.0); ALKALINE PHOSPHATASE 86 U/L (38-126); ANION GAP 14 (5-19); ASPARTATE AMINO TRANSFERASE 55 U/L (17-59); BILIRUBIN,DIRECT 0.5 mg/dL (0.0-0.4); BILIRUBIN,TOTAL 1.7 mg/dL (0.2-1.3); BLOOD UREA NITROGEN 25 mg/dL (7-20); CALCIUM 8.6 mg/dL (8.4-10.2); CARBON DIOXIDE 19 mmol/L (22-30); CHLORIDE 104 mmol/L (98-107); CREATINE KINASE 59 U/L (55-170); GLUCOSE 285 mg/dL (75-110); POTASSIUM 4.1 mmol/L (3.6-5.0); SODIUM 136.9 mmol/L (137-145); TOTAL PROTEIN 6.5 g/dL (6.3-8.2)
[2018-09-12 05:41] LABS: CREATINE KINASE MB 0.73 ng/mL (<4.55); NT PRO BNP 2160 pg/mL (<450)
[2018-09-12 05:44] LABS: TROPONIN I < 0.012 ng/mL
[2018-09-12] MEDS: IPRATROPIUM/ALBUTEROL 0.5-2.5 MG/3 ML AMPUL NEB SCH ×3 (07:32→19:46)
--- NOTE | 2018-09-12 07:52 | EKG REPORT ---
SEVERITY:- ABNORMAL ECG - SINUS TACHYCARDIA MULTIPLE ATRIAL PREMATURE COMPLEXES BORDERLINE INFERIOR Q WAVES INCREASED ST-T CHANGES IN ANT LEADS COMPARED TO 06/08/18 EKG. : Confirmed by: Evaristo Pretty MD 12-Sep-2018 07:51:18
[2018-09-12] MEDS ORDERED: NITROGLYCERIN SL PRN (09:48)
[2018-09-12] MEDS: AZITHROMYCIN 250 MG TABLET PO SCH (10:13)
[2018-09-12] MEDS: GUAIFENESIN 600 MG TABLET.SA PO SCH ×2 (10:14→21:33)
[2018-09-12] MEDS: FAMOTIDINE 20 MG TABLET PO SCH ×2 (10:14→21:33)
[2018-09-12] MEDS: ENOXAPARIN SODIUM INJ 30 MG/0.3 ML DISP.SYRIN SUBCUT SCH (10:15)
[2018-09-12] MEDS: ASPIRIN 81 MG TABLET, ENT COATED PO SCH (10:18)
[2018-09-12] MEDS: SITAGLIPTIN PHOSPHATE 50 MG TABLET PO SCH (11:41)
[2018-09-12] MEDS: METOPROLOL TARTRATE 50 MG TABLET PO SCH ×2 (11:41→21:33)
[2018-09-12] MEDS: TIOTROPIUM BROMIDE DPI 5 CAP/KIT (18 MCG/CAP) IH SCH (11:42)
[2018-09-12] MEDS: FLUTICASONE/SALMETEROL DISKUS 250-50 MCG/DOSE IH SCH ×2 (11:43→21:31)
--- NOTE | 2018-09-12 12:09 | PDOC H&P ---
History of Present Illness Admission Date/PCP: 09/11/18 22:08 NAHID CAAL Patient complains of: Shortness of the breath fever and chills History of Present Illness: KELSI SIDHU is a 77 year old male This is a 77-year-old male with a significant history of the COPD currently see a pulmonary as outpatient history of the coronary artery disease hypertension's hyperlipidemia type 2 diabetes recently also developed a renal failure and patient's Metformin and lisinopril was stopped came to the emergency department with complaint of a fever chills and shortness of the breath and increasing the cough Patient initial workup with the white count was elevated was 15 chest x-ray was all stable most likely patient underlying pneumonia decided to admit in the hospital for further evaluation and treatments Patient was given the Rocephin and Zithromax in the ER I saw the patient on the floor patient's feeling much better denied any chest pain denied any shortness of the breath Also recently developed renal failure with the current creatinine is pretty stable Ultrasound of the renal was done was all stable Past Medical History Cardiac Medical History: Reports: Coronary Artery Disease, Myocardial Infarction , Hyperlipidema, Hypertension Pulmonary Medical History: Reports: Chronic Obstructive Pulmonary Disease (COPD) Endocrine Medical History: Reports: Diabetes Mellitus Type 2 Renal/ Medical History: Reports: Chronic Kidney Disease GI Medical History: Reports: Gastroesophageal Reflux Disease Psychiatric Medical History: Denies: Depression Past Surgical History Past Surgical History: Reports: Cardiac Catheterization, Coronary Artery Bypass Graft Social History Lives with: Spouse/Significant other Smoking Status: Former Smoker Frequency of Alcohol Use: None Hx Recreational Drug Use: No Drugs: None Hx Prescription Drug Abuse: No Family History Family History: Reviewed & Not Pertinent Parental Family History Reviewed: Yes Children Family History Reviewed: Yes Sibling(s) Family History Reviewed.: Yes Medication/Allergy Home Medications: Albuterol Sulfate [Proair HFA] 1 puff IH Q6HP PRN 01/18/18 Aspirin [Adult Low Dose Aspirin EC] 81 mg PO DAILY 01/18/18 Fluticasone/Salmeterol [Advair 250-50 Diskus 28 dose] 1 puff IH Q12 01/18/18 Metoprolol Tartrate [Lopressor 50 mg Tablet] 50 mg PO Q12 01/18/18 Nitroglycerin [Nitrolingual] 1 spray SL Q5MP PRN 01/18/18 Sitagliptin Phosphate [Januvia] 100 mg PO DAILY 01/18/18 Tiotropium [place] [Spiriva Handihaler 18 mcg/dose (30 Dose)] 1 puff IH DAILY Rosuvastatin Calcium 40 mg PO QHS 06/08/18 Umeclidinium [place] [Incruse Ellipta] 1 puff IH DAILY 09/12/18 Allergies/Adverse Reactions: No Known Allergies Allergy (Verified 06/08/18 21:47) Review of Systems Constitutional: PRESENT: chills, fever(s). ABSENT: headache(s), weight gain, weight loss Eyes: ABSENT: visual disturbances Ears: ABSENT: hearing changes Cardiovascular: ABSENT: chest pain, dyspnea on exertion, edema, orthropnea, palpitations Respiratory: ABSENT: cough, hemoptysis Gastrointestinal: ABSENT: abdominal pain, constipation, diarrhea, hematemesis, hematochezia, nausea, vomiting Genitourinary: ABSENT: dysuria, hematuria Musculoskeletal: ABSENT: joint swelling Integumentary: ABSENT: rash, wounds Neurological: ABSENT: abnormal gait, abnormal speech, confusion, dizziness, focal weakness, syncope Psychiatric: ABSENT: anxiety, depression, homidical ideation, suicidal ideation Endocrine: ABSENT: cold intolerance, heat intolerance, menstrual abnormalities, polydipsia, polyuria Hematologic/Lymphatic: ABSENT: easy bleeding, easy bruising, lymphadenopathy Physical Exam Vital Signs: Temp Pulse Resp BP Pulse Ox 97.6 F 86 17 129/51 H 94 09/12/18 11:11 09/12/18 11:11 09/12/18 11:11 09/12/18 11:11 09/12/18 11:11 Intake & Output 09/11/18 09/12/18 09/13/18 06:59 06:59 06:59 Output Total 100 Balance -100 Weight 59.9 kg General appearance: PRESENT: no acute distress, well-developed, well-nourished Head exam: PRESENT: atraumatic, normocephalic Eye exam: PRESENT: conjunctiva pink, EOMI, PERRLA. ABSENT: scleral icterus Ear exam: PRESENT: normal external ear exam Mouth exam: PRESENT: moist, tongue midline Neck exam: PRESENT: full ROM. ABSENT: carotid bruit, JVD, lymphadenopathy, thyromegaly Respiratory exam: PRESENT: clear to auscultation eve Cardiovascular exam: PRESENT: RRR. ABSENT: diastolic murmur, rubs, systolic murmur Pulses: PRESENT: normal dorsalis pedis pul, +2 pedal pulses bilateral Vascular exam: PRESENT: normal capillary refill GI/Abdominal exam: PRESENT: normal bowel sounds, soft. ABSENT: distended, guarding, mass, organolmegaly, rebound, tenderness Rectal exam: PRESENT: deferred Extremities exam: ABSENT: pedal edema Neurological exam: PRESENT: alert, awake, oriented to person, oriented to place , oriented to time, oriented to situation, CN II-XII grossly intact. ABSENT: motor sensory deficit Psychiatric exam: PRESENT: appropriate affect, normal mood. ABSENT: homicidal ideation, suicidal ideation Skin exam: PRESENT: dry, intact, warm. ABSENT: cyanosis, rash Results Laboratory Results: 09/12/18 04:22 09/12/18 04:22 09/12/18 09/12/18 09/12/18 00:25 04:22 04:22 WBC 13.9 H RBC 3.99 L Hgb 12.7 L Hct 37.0 L MCV 93 MCH 31.9 MCHC 34.4 RDW 14.3 H Plt Count 124 L Seg Neutrophils % 90.8 H Lymphocytes % 6.7 L Monocytes % 2.4 L Eosinophils % 0.0 Basophils % 0.1 Absolute Neutrophils 12.6 H Absolute Lymphocytes 0.9 Absolute Monocytes 0.3 Absolute Eosinophils 0.0 Absolute Basophils 0.0 Sodium 136.9 L Potassium 4.1 Chloride 104 Carbon Dioxide 19 L Anion Gap 14 BUN 25 H Creatinine 1.85 H Est GFR ( Amer) 43 L Est GFR (Non-Af Amer) 36 L Glucose 285 H Calcium 8.6 Total Bilirubin 1.7 H AST 55 ALT 44 Alkaline Phosphatase 86 Total Protein 6.5 Albumin 3.2 L Urine Color YELLOW Urine Appearance CLOUDY Urine pH 5.0 Ur Specific [place] 1.023 Urine Protein 100 H Urine Glucose (UA) >=500 H Urine Ketones TRACE H Urine Blood SMALL H Urine Nitrite NEGATIVE Ur Leukocyte Esterase NEGATIVE Urine WBC (Auto) 1 Urine RBC (Auto) 0 09/12/18 06:01 Sputum Gram Stain - Final 09/12/18 06:01 Sputum Sputum Culture - Final 09/12/18 09/12/18 04:22 04:22 Creatine Kinase 59 CK-MB (CK-2) 0.73 Troponin I < 0.012 NT-Pro-B Natriuret Pep 2160 H Impressions: Chest X-Ray 09/11/18 20:09 IMPRESSION: Chronic lung changes. Borderline cardiomegaly without pulmonary edema. Minimal left pleural effusion. Assessment & Plan - Diagnosis (1) Pneumonia Qualifiers: Lung location: unspecified part of lung Is this a current diagnosis for this admission?: Yes Plan: Most likely community-acquired pneumonia start the patient on Rocephin and Zithromax (2) Fever Qualifiers: Encounter type: initial encounter Is this a current diagnosis for this admission?: Yes Plan: Will get the blood culture urine culture start the antibiotic get the sputum culture (3) Acute renal failure Qualifiers: Acute renal failure type: unspecified Qualified Code(s): N17.9 - Acute kidney failure, unspecified Is this a current diagnosis for this admission?: Yes Plan: Patients recently developed the renal issues refer outpatients nephrology most likely some underlying dehydration's will get the urine culture IV fluid patient is currently off the Metformin and lisinopril (4) Chronic obstructive pulmonary disease Qualifiers: COPD type: emphysema Emphysema type: unspecified Qualified Code(s): J43.9 - Emphysema, unspecified Is this a current diagnosis for this admission?: Yes Plan: Patient with significant history of the COPD will continue some nebulizer treatments we will consult the pulmonary (5) Coronary artery disease Qualifiers: Coronary Disease-Associated Artery/Lesion type: unspecified vessel or lesion type Is this a current diagnosis for this admission?: Yes Plan: Patient EKG and a cardiac enzyme is all stable patient is currently see outpatients cardiology Dr. Pretty (6) Sleep apnea Qualifiers: Sleep apnea type: unspecified type Is this a current diagnosis for this admission?: Yes Plan: Currently using the CPAP (7) Type 2 diabetes mellitus Qualifiers: Diabetes mellitus termite control service representative insulin use: without termite control service representative use Is this a current diagnosis for this admission?: Yes Plan: Continue sliding-scale - Time Time Spent: 30 to 50 Minutes Medications reviewed and adjusted accordingly: Yes Anticipated discharge: Home Within: Other - Inpatient Certification Based on my medical assessment, after consideration of the patient's comorbidities, presenting symptoms, or acuity I expect that the services needed warrant INPATIENT care.: Yes I certify that my determination is in accordance with my understanding of Medicare's requirements for reasonable and necessary INPATIENT services [42 CFR 412.3e].: Yes Medical Necessity: Need Close Monitoring Due to Risk of Patient Decompensation, Need for IV Antibiotics Post Hospital Care: D/C Line Producer Documentation - Plan Summary Plan Summary: Discussed with the patient and the regarding the patient's current conditions continues to monitor the patient
--- NOTE | 2018-09-12 17:17 | PDOC CONSULTATION ---
Consultation Consult Date: 09/12/18 Attending physician:: STEPHANIE CHÁVEZ Consult reason:: I was asked by Dr. Chávez to see the patient for worsening renal failure. History of Present Illness Admission Date/PCP: 09/11/18 22:08 NAHID CAAL History of Present Illness: KELSI SIDHU is a 77 year old male with history of coronary artery disease , COPD, sleep apnea, diabetes mellitus type 2 who presented in the emergency room because of fever and shortness of breath last night. Apparently the patient has been having this fever for the last couple of days prior to admission. Patient's remembered that when they were [place] the mall trying to exercise the patient suddenly felt dizzy and has some chills on Monday but then refused to go to the emergency room. Patient continues to do some painting of and her house. Patient has some cough with clear phlegm infrequently. He admits to being short of breath. His appetite is decreased recently. Patient confirms that he is not drinking a lot of fluids and probably just drinks some when he takes his medications. said he probably just drink 1 bottle of 16 ounce water. He otherwise denies any nausea, vomiting, diarrhea. He denies any leg swelling. He took 2 Aleve's yesterday. Denies any history of hepatitis. He just had a sleep study last Monday and was diagnosed to have sleep apnea under the supervision of Dr. Blanco. In the patient came in he was found to have a BUN of 27, creatinine was 2.02 and estimated GFR of 32. Today he has a BUN of 25, creatinine of 1.85 with estimated GFR of 36. Prior to this on June 12 he has a creatinine of 1.29 with estimated GFR of 54. He did have a kidney ultrasound on August 06 which showed right kidney measuring at 9.3 cm left kidney at 9.1 cm, increased echogenicity without any hydronephrosis nor calcifications. Prostate was also noted to be enlarged. His urinalysis showed mild amount of protein , significant amount of glucose and small amount of blood. Patient was started to have some very gentle hydration since admission. He was also thought to have possible pneumonia so he was started on IV azithromycin and ceftriaxone. According to his metformin and lisinopril has been discontinued recently probably 1 or [address] Chávez. Past Medical History Cardiac Medical History: Reports: Coronary Artery Disease, Hyperlipidemia, Myocardial Infarction Pulmonary Medical History: Reports: Chronic Obstructive Pulmonary Disease (COPD) , Sleep Apnea Endocrine Medical History: Reports: Diabetes Mellitus Type 2 Renal/ Medical History: Reports: Chronic Kidney Disease Stage III Past Surgical History Past Surgical History: Reports: Cardiac Catheterization, Coronary Artery Bypass Graft - X3 on 07/26/2008, Other - Cyst excision on posterior neck Social History Information Source: Patient, Relative Lives with: Spouse/Significant other Smoking Status: Former Smoker Frequency of Alcohol Use: None Hx Recreational Drug Use: No Drugs: None Hx Prescription Drug Abuse: No Family History Family History: Chronic Kidney Disease - Mother, Hypertension - Mother, Malignancy - Sister Parental Family History Reviewed: Yes Children Family History Reviewed: Yes Sibling(s) Family History Reviewed.: Yes Medication/Allergy Home Medications: Albuterol Sulfate [Proair HFA] 1 puff IH Q6HP PRN 01/18/18 Aspirin [Adult Low Dose Aspirin EC] 81 mg PO DAILY 01/18/18 Fluticasone/Salmeterol [Advair 250-50 Diskus 28 dose] 1 puff IH Q12 01/18/18 Metoprolol Tartrate [Lopressor 50 mg Tablet] 50 mg PO Q12 01/18/18 Nitroglycerin [Nitrolingual] 1 spray SL Q5MP PRN 01/18/18 Sitagliptin Phosphate [Januvia] 100 mg PO DAILY 01/18/18 Tiotropium [place] [Spiriva Handihaler 18 mcg/dose (30 Dose)] 1 puff IH DAILY Rosuvastatin Calcium 40 mg PO QHS 06/08/18 Umeclidinium [place] [Incruse Ellipta] 1 puff IH DAILY 09/12/18 Allergies/Adverse Reactions: No Known Allergies Allergy (Verified 06/08/18 21:47) Review of Systems All systems: reviewed and no additional remarkable complaints except as stated Review of Systems: Constitutional: ABSENT: Fatigue, headache(s), weight gain, weight loss; admits fever and chills Eyes: ABSENT: visual disturbances Ears: ABSENT: hearing changes Cardiovascular: ABSENT: chest pain, dyspnea on exertion, edema, orthropnea, palpitations Respiratory: ABSENT: Hemoptysis; admits cough and shortness of breath Gastrointestinal: ABSENT: abdominal pain, constipation, diarrhea, hematemesis, hematochezia, nausea, vomiting Genitourinary: ABSENT: dysuria, hematuria Musculoskeletal: ABSENT: joint swelling Integumentary: ABSENT: rash, wounds Neurological: ABSENT: abnormal gait, abnormal speech, confusion, dizziness, focal weakness, numbness, syncope Psychiatric: ABSENT: anxiety, depression Endocrine: ABSENT: cold intolerance, heat intolerance, polydipsia, polyuria Hematologic/Lymphatic: ABSENT: easy bleeding, easy bruising, lymphadenopathy Physical Exam Vital Signs: Temp Pulse Resp BP Pulse Ox 97.6 F 85 16 129/51 H 95 09/12/18 11:11 09/12/18 13:46 09/12/18 13:46 09/12/18 11:11 09/12/18 13:46 Intake & Output 09/11/18 09/12/18 09/13/18 06:59 06:59 06:59 Intake Total 1300 Output Total 100 Balance -100 1300 Weight 59.9 kg Exam: General appearance: No acute distress, cooperative, well-developed, well- nourished Head exam: PRESENT: atraumatic, normocephalic Eye exam: PRESENT: Conjunctiva [place], EOMI, PERRLA. ABSENT: conjunctival injection, scleral icterus Mouth exam: PRESENT: moist, neck supple, tongue midline Neck exam: PRESENT: full ROM. ABSENT: carotid bruit, JVD, lymphadenopathy, thyromegaly Respiratory exam: PRESENT: clear to auscultation bilaterally. ABSENT: rales, rhonchi, stridor, wheezes Cardiovascular exam: PRESENT: RRR, +S1, +S2. ABSENT: systolic murmur Pulses: PRESENT: normal radial pulses, normal dorsalis pedis pulses GI/Abdominal exam: PRESENT: normal bowel sounds, soft. ABSENT: guarding, mass, tenderness Rectal exam: Deferred Extremities exam: PRESENT: full ROM. ABSENT: calf tenderness, pedal edema Musculoskeletal: PRESENT: full ROM. ABSENT: deformity Neurological exam: PRESENT: alert, Awake, Oriented to person, Oriented to place , Oriented to time, reflexes normal, CN II-XII grossly intact. ABSENT: motor sensory deficit Psychiatric exam: PRESENT: appropriate affect, normal mood. ABSENT: homicidal ideation, suicidal ideation Skin exam: PRESENT: intact, dry, warm. ABSENT: rash Results Laboratory Results: 09/12/18 04:22 09/12/18 04:22 09/12/18 09/12/1809/12/18 00:25 04:22 04:22 WBC 13.9 H RBC 3.99 L Hgb 12.7 L Hct 37.0 L MCV 93 MCH 31.9 MCHC 34.4 RDW 14.3 H Plt Count 124 L Seg Neutrophils % 90.8 H Lymphocytes % 6.7 L Monocytes % 2.4 L Eosinophils % 0.0 Basophils % 0.1 Absolute Neutrophils 12.6 H Absolute Lymphocytes 0.9 Absolute Monocytes 0.3 Absolute Eosinophils 0.0 Absolute Basophils 0.0 Sodium 136.9 L Potassium 4.1 Chloride 104 Carbon Dioxide 19 L Anion Gap 14 BUN 25 H Creatinine 1.85 H Est GFR ( Amer) 43 L Est GFR (Non-Af Amer) 36 L Glucose 285 H Calcium 8.6 Total Bilirubin 1.7 H AST 55 ALT 44 Alkaline Phosphatase 86 Total Protein 6.5 Albumin 3.2 L Urine Color YELLOW Urine Appearance CLOUDY Urine pH 5.0 Ur Specific [place] 1.023 Urine Protein 100 H Urine Glucose (UA) >=500 H Urine Ketones TRACE H Urine Blood SMALL H Urine Nitrite NEGATIVE Ur Leukocyte Esterase NEGATIVE Urine WBC (Auto) 1 Urine RBC (Auto) 0 09/12/18 06:01 Sputum Gram Stain - Final 09/12/18 06:01 Sputum Sputum Culture - Final 09/12/18 09/12/18 04:22 04:22 Creatine Kinase 59 CK-MB (CK-2) 0.73 Troponin I < 0.012 NT-Pro-B Natriuret Pep 2160 H Impressions: Chest X-Ray 09/11/18 20:09 IMPRESSION: Chronic lung changes. Borderline cardiomegaly without pulmonary edema. Minimal left pleural effusion. Kidney ultrasound on 08/06/2018 reviewed as above. Assessment & Plan - Diagnosis (1) Acute kidney injury Is this a current diagnosis for this admission?: Yes Plan: Likely secondary to prerenal azotemia with mild dehydration due to poor oral fluid intake. Currently slowly improving with gentle IV hydration. Advised patient about the importance of adequate fluid intake for kidney function. Continue IV fluid hydration as ordered and monitor kidney function. Avoid further nephrotoxic agents. (2) Prerenal azotemia Is this a current diagnosis for this admission?: Yes (3) Chronic kidney disease, stage III (moderate) Is this a current diagnosis for this admission?: Yes Plan: I think the patient has underlying chronic kidney disease probably at stage III with associated mild proteinuria likely secondary to diabetes mellitus. Check urine protein for creatinine ratio. (4) Pneumonia Qualifiers: Lung location: unspecified part of lung Is this a current diagnosis for this admission?: Yes Plan: Currently on antibiotics per PCP. Director Regulatory Compliance, Dr. layton was also consulted. (5) Type 2 diabetes mellitus Qualifiers: Diabetes mellitus detention insulin use: without termite renewal inspector use Is this a current diagnosis for this admission?: Yes - Notes Notes: Thank you very much for this consultation. I will follow the patient with you. - Time Time Spent: 50 to 70 Minutes
[2018-09-12 18:31] LABS: UR PRO/CREAT RATIO RESULT 1.1 mg/mg (0.0-0.2); URINE CREATININE 100.8 mg/dL (22-328); URINE PROTEIN 106.4 mg/dL (<12)
[2018-09-12] MEDS: ATORVASTATIN CALCIUM 80 MG TABLET PO SCH (21:33)
[2018-09-12] MEDS ORDERED: (PENDING PHARMACY ID) (Rosuvastatin Calcium [Rosuvastatin Calcium] 40 MG) PO SCH (22:00)
[2018-09-12] MEDS ORDERED: CEFTRIAXONE SODIUM 1,000 MG in DEXTROSE 5%-WATER 50 ML IV SCH (22:00)
[2018-09-12] MEDS ORDERED: AZITHROMYCIN 500 MG in DEXTROSE 5%-WATER 250 ML IV SCH (22:00)
[2018-09-12] MEDS ORDERED: CEFTRIAXONE 1 GM/D5W RTU 1 GM/50 ML RTUPB IV SCH (22:00)
[2018-09-13] MEDS: 1/2 NORMAL SALINE 1,000 ML IV PRN (05:20)
[2018-09-13 05:21] LABS: ABSOLUTE LYMPHOCYTES (AUTO) 1.4 10^3/uL (0.5-4.7); ABSOLUTE NEUT (AUTO) 10.7 10^3/uL (1.7-8.2); BASOPHILS % (AUTO) 0.1 % (0-2); HEMATOCRIT 35.2 % (37.9-51.0); HEMOGLOBIN 12.4 g/dL (13.5-17.0); LYMPHOCYTES % (AUTO) 10.7 % (13-45); MEAN CORPUSCULAR HEMOGLOBIN 32.6 pg (27.0-33.4); MEAN CORPUSCULAR HGB CONC 35.3 g/dL (32.0-36.0); MEAN CORPUSCULAR VOLUME 92 fl (80-97); MONOCYTES % (AUTO) 7.6 % (3-13); PLATELET COUNT 147 10^3/uL (150-450); RED BLOOD COUNT 3.82 10^6/uL (4.35-5.55); SEGMENTED NEUTROPHILS % (AUTO) 81.6 % (42-78); TOTAL CELLS COUNTED % (AUTO) 100 %; WHITE BLOOD COUNT 13.1 10^3/uL (4.0-10.5)
[2018-09-13 05:43] LABS: ALANINE AMINOTRANSFERASE 67 U/L (21-72); ALBUMIN 2.9 g/dL (3.5-5.0); ALKALINE PHOSPHATASE 82 U/L (38-126); ANION GAP 13 (5-19); ASPARTATE AMINO TRANSFERASE 80 U/L (17-59); BILIRUBIN,DIRECT 0.4 mg/dL (0.0-0.4); BILIRUBIN,TOTAL 1.1 mg/dL (0.2-1.3); BLOOD UREA NITROGEN 23 mg/dL (7-20); CALCIUM 8.4 mg/dL (8.4-10.2); CARBON DIOXIDE 19 mmol/L (22-30); CHLORIDE 106 mmol/L (98-107); GLUCOSE 202 mg/dL (75-110); POTASSIUM 4.3 mmol/L (3.6-5.0); SODIUM 137.9 mmol/L (137-145)
[2018-09-13] MEDS ORDERED: ACETAMINOPHEN 325 MG TABLET PO PRN (07:36)
[2018-09-13] MEDS ORDERED: NITROGLYCERIN 0.4 MG/TAB 25 TAB/BOTTLE SL PRN (07:41)
[2018-09-13] MEDS: IPRATROPIUM/ALBUTEROL 0.5-2.5 MG/3 ML AMPUL NEB SCH ×3 (08:10→20:25)
[2018-09-13] MEDS: SITAGLIPTIN PHOSPHATE 50 MG TABLET PO SCH (09:00)
[2018-09-13] MEDS: ENOXAPARIN SODIUM INJ 30 MG/0.3 ML DISP.SYRIN SUBCUT SCH (09:01)
[2018-09-13] MEDS: METOPROLOL TARTRATE 50 MG TABLET PO SCH ×2 (09:01→21:56)
[2018-09-13] MEDS: ASPIRIN 81 MG TABLET, ENT COATED PO SCH (09:01)
[2018-09-13] MEDS: AZITHROMYCIN 250 MG TABLET PO SCH (09:01)
[2018-09-13] MEDS: FLUTICASONE/SALMETEROL DISKUS 250-50 MCG/DOSE IH SCH ×2 (09:04→21:55)
[2018-09-13] MEDS: GUAIFENESIN 600 MG TABLET.SA PO SCH ×2 (09:04→21:56)
[2018-09-13] MEDS: TIOTROPIUM BROMIDE DPI 5 CAP/KIT (18 MCG/CAP) IH SCH (09:05)
--- NOTE | 2018-09-13 09:11 | PDOC PROGRESS REPORT ---
Subjective Progress Note for:: 09/13/18 Subjective:: Patient is feeling much better. He said he is coughing only infrequently now and does not have any more fever no chills. He is making urine. He does not have any new complaints. Reason For Visit: PNEUMONIA Physical Exam Vital Signs: Temp Pulse Resp BP Pulse Ox 97.7 F 78 14 122/61 95 09/13/18 07:49 09/13/18 08:10 09/13/18 08:10 09/13/18 07:49 09/13/18 08:10 Intake & Output 09/12/18 09/13/18 09/14/18 06:59 06:59 06:59 Intake Total 2550 Output Total 100 Balance -100 2550 Weight 59.9 kg 62.3 kg Exam: General appearance: PRESENT: no acute distress, cooperative, well-developed, well-nourished Head exam: PRESENT: atraumatic, normocephalic Eye exam: PRESENT: conjunctiva pink, PERRLA. ABSENT: scleral icterus Neck exam: ABSENT: JVD Respiratory exam: PRESENT: Normal breath sounds. Positive bibasilar crackles ABSENT: Rhonchi, unlabored, wheezes Cardiovascular exam: PRESENT: Regular rate rhythm -+S1, +S2. ABSENT: diastolic murmur, systolic murmur GI/Abdominal exam: PRESENT: normal bowel sounds, soft. ABSENT: guarding, mass, tenderness Extremities exam: ABSENT: No edema Neurological exam: PRESENT: alert, awake, oriented to person, place and time. Skin exam: PRESENT: dry, warm, Results Laboratory Results: 09/13/18 04:34 09/13/18 04:34 09/13/18 09/13/18 04:34 04:34 WBC 13.1 H RBC 3.82 L Hgb 12.4 L Hct 35.2 L MCV 92 MCH 32.6 MCHC 35.3 RDW 14.0 Plt Count 147 L Seg Neutrophils % 81.6 H Lymphocytes % 10.7 L Monocytes % 7.6 Eosinophils % 0.0 Basophils % 0.1 Absolute Neutrophils 10.7 H Absolute Lymphocytes 1.4 Absolute Monocytes 1.0 Absolute Eosinophils 0.0 Absolute Basophils 0.0 Sodium 137.9 Potassium 4.3 Chloride 106 Carbon Dioxide 19 L Anion Gap 13 BUN 23 H Creatinine 1.67 H Est GFR ( Amer) 48 L Est GFR (Non-Af Amer) 40 L Glucose 202 H Calcium 8.4 Total Bilirubin 1.1 AST 80 H ALT 67 Alkaline Phosphatase 82 Total Protein 6.0 L Albumin 2.9 L 09/12/18 06:01 Sputum Gram Stain - Final 09/12/18 06:01 Sputum Sputum Culture - Final 09/12/18 09/12/18 04:22 04:22 Creatine Kinase 59 CK-MB (CK-2) 0.73 Troponin I < 0.012 NT-Pro-B Natriuret Pep 2160 H Impressions: Chest X-Ray 09/11/18 20:09 IMPRESSION: Chronic lung changes. Borderline cardiomegaly without pulmonary edema. Minimal left pleural effusion. Assessment & Plan - Diagnosis (1) Acute kidney injury Is this a current diagnosis for this admission?: Yes Plan: Secondary to prerenal azotemia, currently improving every day. (2) Prerenal azotemia Is this a current diagnosis for this admission?: Yes Plan: Improving. Advised the patient to drink fluids at least 48-64 ounces a day. (3) Chronic kidney disease, stage III (moderate) Is this a current diagnosis for this admission?: Yes Plan: Patient has urine protein to creatinine ratio of 1.1. 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 (4) Pneumonia Qualifiers: Lung location: unspecified part of lung Is this a current diagnosis for this admission?: Yes Plan: Continue IV antibiotics per primary care provider. (5) Type 2 diabetes mellitus Qualifiers: Diabetes mellitus correction insulin use: without correction use Is this a current diagnosis for this admission?: Yes (6) Anemia Is this a current diagnosis for this admission?: Yes Plan: Chronic kidney disease as contributory to this. (7) Hypoalbuminemia due to protein-calorie malnutrition Is this a current diagnosis for this admission?: Yes Plan: Start Nepro supplements twice a day. - Time Time with patient: 15-25 minutes
--- NOTE | 2018-09-13 10:07 | PDOC PROGRESS REPORT ---
Subjective Progress Note for:: 09/13/18 Subjective:: Patient is currently doing much better Still having some cough but no any yellow sputum Had any chest pain denied any shortness of the breath Patient seen by pulmonary and nephrology Reason For Visit: PNEUMONIA Physical Exam Vital Signs: Temp Pulse Resp BP Pulse Ox 97.7 F 78 14 122/61 95 09/13/18 07:49 09/13/18 08:10 09/13/18 08:10 09/13/18 07:49 09/13/18 08:10 Intake & Output 09/12/18 09/13/18 09/14/18 06:59 06:59 06:59 Intake Total 2550 Output Total 100 Balance -100 2550 Weight 59.9 kg 62.3 kg General appearance: PRESENT: no acute distress, well-developed, well-nourished Head exam: PRESENT: atraumatic, normocephalic Eye exam: PRESENT: conjunctiva pink, EOMI, PERRLA. ABSENT: scleral icterus Ear exam: PRESENT: normal external ear exam Mouth exam: PRESENT: moist, tongue midline Neck exam: PRESENT: full ROM. ABSENT: carotid bruit, JVD, lymphadenopathy, thyromegaly Respiratory exam: PRESENT: clear to auscultation eve Cardiovascular exam: PRESENT: RRR. ABSENT: diastolic murmur, rubs, systolic murmur Pulses: PRESENT: normal dorsalis pedis pul, +2 pedal pulses bilateral Vascular exam: PRESENT: normal capillary refill GI/Abdominal exam: PRESENT: normal bowel sounds, soft. ABSENT: distended, guarding, mass, organolmegaly, rebound, tenderness Rectal exam: PRESENT: deferred Extremities exam: ABSENT: pedal edema Musculoskeletal exam: PRESENT: ambulatory Neurological exam: PRESENT: alert, awake, oriented to person, oriented to place , oriented to time, oriented to situation, CN II-XII grossly intact. ABSENT: motor sensory deficit Psychiatric exam: PRESENT: appropriate affect, normal mood. ABSENT: homicidal ideation, suicidal ideation Skin exam: PRESENT: dry, intact, warm. ABSENT: cyanosis, rash Results Laboratory Results: 09/13/18 04:34 09/13/18 04:34 09/13/18 09/13/18 04:34 04:34 WBC 13.1 H RBC 3.82 L Hgb 12.4 L Hct 35.2 L MCV 92 MCH 32.6 MCHC 35.3 RDW 14.0 Plt Count 147 L Seg Neutrophils % 81.6 H Lymphocytes % 10.7 L Monocytes % 7.6 Eosinophils % 0.0 Basophils % 0.1 Absolute Neutrophils 10.7 H Absolute Lymphocytes 1.4 Absolute Monocytes 1.0 Absolute Eosinophils 0.0 Absolute Basophils 0.0 Sodium 137.9 Potassium 4.3 Chloride 106 Carbon Dioxide 19 L Anion Gap 13 BUN 23 H Creatinine 1.67 H Est GFR ( Amer) 48 L Est GFR (Non-Af Amer) 40 L Glucose 202 H Calcium 8.4 Total Bilirubin 1.1 AST 80 H ALT 67 Alkaline Phosphatase 82 Total Protein 6.0 L Albumin 2.9 L 09/12/18 06:01 Sputum Gram Stain - Final 09/12/18 06:01 Sputum Sputum Culture - Final 09/12/18 09/12/18 04:22 04:22 Creatine Kinase 59 CK-MB (CK-2) 0.73 Troponin I < 0.012 NT-Pro-B Natriuret Pep 2160 H Impressions: Chest X-Ray 09/11/18 20:09 IMPRESSION: Chronic lung changes. Borderline cardiomegaly without pulmonary edema. Minimal left pleural effusion. Assessment & Plan - Diagnosis (1) Pneumonia Qualifiers: Lung location: unspecified part of lung Is this a current diagnosis for this admission?: Yes Plan: Most likely community-acquired pneumonia start the patient on Rocephin and Zithromax (2) Fever Qualifiers: Encounter type: initial encounter Is this a current diagnosis for this admission?: Yes Plan: Will get the blood culture urine culture start the antibiotic get the sputum culture (3) Acute renal failure Qualifiers: Acute renal failure type: unspecified Qualified Code(s): N17.9 - Acute kidney failure, unspecified Is this a current diagnosis for this admission?: Yes Plan: Currently all improving (4) Chronic obstructive pulmonary disease Qualifiers: COPD type: emphysema Emphysema type: unspecified Qualified Code(s): J43.9 - Emphysema, unspecified Is this a current diagnosis for this admission?: Yes Plan: Patient with significant history of the COPD will continue some nebulizer treatments we will consult the pulmonary (5) Coronary artery disease Qualifiers: Coronary Disease-Associated Artery/Lesion type: unspecified vessel or lesion type Is this a current diagnosis for this admission?: Yes Plan: Patient EKG and a cardiac enzyme is all stable patient is currently see outpatients cardiology Dr. Pretty (6) Sleep apnea Qualifiers: Sleep apnea type: unspecified type Is this a current diagnosis for this admission?: Yes Plan: Currently using the CPAP (7) Type 2 diabetes mellitus Qualifiers: Diabetes mellitus snf insulin use: without contract agent use Is this a current diagnosis for this admission?: Yes Plan: Continue sliding-scale - Time Time Spent with patient: 15-24 minutes Medications reviewed and adjusted accordingly: Yes Anticipated discharge: Home Within: within 24 hours - Inpatient Certification Based on my medical assessment, after consideration of the patient's comorbidities, presenting symptoms, or acuity I expect that the services needed warrant INPATIENT care.: Yes I certify that my determination is in accordance with my understanding of Medicare's requirements for reasonable and necessary INPATIENT services [42 CFR 412.3e].: Yes Medical Necessity: Significant Comorbidiites Make Outpatient Treatment Too Risky Post Hospital Care: 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
--- NOTE | 2018-09-13 10:16 | RADIOLOGY REPORT (SQ) ---
EXAM DESCRIPTION: CT ABD/PELVIS NO ORAL OR IV COMPLETED DATE/TIME: 09/13/2018 8:26 am REASON FOR STUDY: abnormal lft COMPARISON: Abdominal ultrasound 12/14/2016 CT chest 01/18/2018, 06/09/2018 TECHNIQUE: CT scan of the abdomen and pelvis performed without intravenous or oral contrast. Images reviewed with lung, soft tissue, and bone windows. Reconstructed coronal and sagittal MPR images revi ewed. All images stored on PACS. All CT scanners at this facility use dose modulation, iterative reconstruction, and/or weight based d osing when appropriate to reduce radiation dose to as low as reasonably achievable (ALARA). [facility]: Dose Right [facility]: CareDose [facility]: Dose Right [facility]: Teradose 4D [facility]: Smart The Hitch RADIATION DOSE: CT Rad equipment meets quality standard of care and radiation dose reduction techniq ues were employed. CTDIvol: 3.4 mGy. DLP: 169 mGy-cm.mGy. LIMITATIONS: None. FINDINGS: LOWER CHEST: Patchy bibasilar consolidation in the posterior costophrenic sulci atelectasi s versus pneumonia. Old sternotomy for CABG. NON-CONTRASTED LIVER, SPLEEN, ADRENALS: Evaluation limited by lack of IV contrast. No identified sign ificant masses. PANCREAS: No masses. No peripancreatic inflammatory changes. GALLBLADDER: No identified stones by CT criteria. No inflammatory changes to suggest cholecystitis. RIGHT KIDNEY AND URETER: No suspicious masses. Assessment limited by lack of IV contrast. No signif icant calcifications. No hydronephrosis or hydroureter. LEFT KIDNEY AND URETER: No suspicious masses. Assessment limited by lack of IV contrast. No signifi cant calcifications. No hydronephrosis or hydroureter. AORTA AND RETROPERITONEUM: No aneurysm. No retroperitoneal masses or adenopathy. BOWEL AND PERITONEAL CAVITY: No obvious masses or inflammatory changes. No free fluid. No free intra peritoneal air. Moderate stool throughout the colon. APPENDIX: Normal. PELVIS, BLADDER, AND ABDOMINAL WALL:No abnormal masses. No free fluid. Bladder normal. Small bilater al fat containing inguinal hernias BONES: No significant findings. OTHER: No other significant finding. IMPRESSION: NO SIGNIFICANT OR ACUTE PROCESS IN THE ABDOMEN OR PELVIS. COMMENT: Quality ID # [id number]: Final reports with documentation of one or more dose reduction techniques (e.g., Automated exposure control, adjustment of the mA and/or kV according to patient size, use of iterative reconstruction technique) TECHNICAL DOCUMENTATION: JOB ID: [id number] [employer]- All Rights Reserved Reading location - IP/workstation name: [email or web address]
[2018-09-13] MEDS: INSULIN LISPRO 100 UNIT/ML 3 ML VIAL SUBCUT PRN ×3 (12:18→21:56)
--- NOTE | 2018-09-13 14:54 | CONSULTATION REPORT E ---
Consultation Report NAME: KELSI SIDHU : 1940 AGE: 77Y DATE: 09/12/2018 320 A TO: SAMMY SILVERIO M.D. FROM: STEPHANIE PERES M.D. Requesting Physician HISTORY OF PRESENT ILLNESS: The patient is a 77-year-old [place] male who came in with increased shortness of breath and fever which started last night. Brought to the emergency room and eventually admitted and treated for possible pneumonia. The patient has history of COPD and obstructive apnea, moderate. Denies any purulent sputum production or hemoptysis. Denies any chest pain. PAST MEDICAL HISTORY: 1. History of coronary artery disease. 2. Myocardial infarction. 3. Hypertension. 4. Hypertension. 5. History of COPD. 6. Diabetes type 2. 7. Chronic kidney disease. 8. Gastroesophageal reflux disease. PAST SURGICAL HISTORY: Reports cardiac cath and a history of coronary artery bypass graft. SOCIAL HISTORY: The patient used to smoke in the past, but quit smoking several years ago. Denies any alcohol abuse or illicit drug use. ALLERGIES: No known drug allergies. MEDICATIONS: 1. Albuterol inhaler. 2. Aspirin. 3. Advair 250. 4. Metoprolol. 5. Nitroglycerin. 6. Januvia. 7. Spiriva inhaler. 8. Rosuvastatin. 9. Incruse inhaler. REVIEW OF SYSTEMS: CONSTITUTIONAL: No fever or chills. EYES: No eye pain. No blurry vision. EARS, NOSE, AND THROAT: No ear drainage. No nasal discharge. RESPIRATION: Complains about increased shortness of breath associated with fever. Denies any purulent sputum production or hemoptysis. CARDIAC: No history of chest pains or angina. No palpitations or syncopal episodes. GENITOURINARY: No dysuria, hematuria. GASTROINTESTINAL: No nausea, vomiting, diarrhea. EXTREMITIES: No joint tenderness or cellulitis. PHYSICAL EXAMINATION: GENERAL: The patient is awake, alert, coherent, afebrile, not in apparent respiratory distress. VITAL SIGNS: Temperature of 97.6, with a T-max of 101 on admission, heart rate of 85, blood pressure is 129/51, respirations 16, and saturation is 95% on 2 L. EYES: No jaundice or pallor. EARS, NOSE, AND THROAT: No ear drainage. No nasal discharge. CHEST AND LUNGS: No wheezing. No rhonchi. No coarse crackles. CARDIOVASCULAR: S1, S2 distinct. Normal rate, regular rhythm. ABDOMEN: Flabby. Positive bowel sounds. Soft, nondistended, nontender. EXTREMITIES: No joint swelling. No cellulitis. LABORATORY: CBC done today shows a white count of 13.9, and 15.6 yesterday. Hemoglobin is 12.6, hematocrit 37, and platelet count is 124. The chemistry done today showed sodium is 136.9, potassium is 4.1, chloride 104, CO2 is 19, BUN is 25, creatinine is 1.85, and a glucose of 285. Calcium is 8.6. Total bilirubin is 1.7. Direct bilirubin is 0.5. SGOT is 55, SGPT 44. Alkaline phosphatase is 86%. NT-BNP is 2016. Troponin is less than 0.012. The total protein is 6.5, albumin 3.2. RADIOGRAPHIC STUDIES: Chest x-ray done today showed infiltrates bilaterally, most likely due to pulmonary congestion, pulmonary edema. No apparent pneumonic consolidations noted. ASSESSMENT: 1. Fever, currently resolved. 2. Pneumonia- could not be completely excluded.. 3. Pulmonary congestion/pulmonary edema. 4. History of obstructive sleep apnea, currently not on CPAP therapy. PLAN AND RECOMMENDATIONS: 1. Continue Advair 250/50 one puff daily. 2. Continue Spiriva inhaler 1 capsule daily. 3. Continue antibiotics. 4. Encourage the patient to start his CPAP therapy right away. 5. Work-in pulmonary clinic followup in 2-3 weeks after hospital discharge. DICTATING PHYSICIAN: SAMMY SILVERIO MD,MARY,MPH [id number] PHY#: [id number] ID: [id number] JOB#: [id number] ACCT: [id number] cc:SAMMY SILVERIO M.D. > PAULETTE
[2018-09-13] MEDS: LEVOFLOXACIN 500 MG TABLET PO SCH (17:26)
[2018-09-13] MEDS: ATORVASTATIN CALCIUM 80 MG TABLET PO SCH (21:55)
[2018-09-13] MEDS ORDERED: FAMOTIDINE 20 MG TABLET PO SCH (22:00)
[2018-09-14 04:47] LABS: ABSOLUTE LYMPHOCYTES (AUTO) 1.3 10^3/uL (0.5-4.7); BASOPHILS % (AUTO) 0.5 % (0-2); EOSINOPHILS % (AUTO) 0.7 % (0-6); HEMATOCRIT 35.8 % (37.9-51.0); HEMOGLOBIN 12.7 g/dL (13.5-17.0); LYMPHOCYTES % (AUTO) 17.6 % (13-45); MEAN CORPUSCULAR HEMOGLOBIN 32.8 pg (27.0-33.4); MEAN CORPUSCULAR HGB CONC 35.5 g/dL (32.0-36.0); MEAN CORPUSCULAR VOLUME 92 fl (80-97); MONOCYTES % (AUTO) 13.6 % (3-13); PLATELET COUNT 153 10^3/uL (150-450); RED BLOOD COUNT 3.88 10^6/uL (4.35-5.55); RED CELL DISTRIBUTION WIDTH 14.2 % (11.5-14.0); SEGMENTED NEUTROPHILS % (AUTO) 67.6 % (42-78); TOTAL CELLS COUNTED % (AUTO) 100 %; WHITE BLOOD COUNT 7.4 10^3/uL (4.0-10.5)
[2018-09-14 05:05] LABS: ALANINE AMINOTRANSFERASE 110 U/L (21-72); ALBUMIN 2.6 g/dL (3.5-5.0); ALKALINE PHOSPHATASE 83 U/L (38-126); ANION GAP 9 (5-19); ASPARTATE AMINO TRANSFERASE 116 U/L (17-59); BILIRUBIN,DIRECT 0.2 mg/dL (0.0-0.4); BILIRUBIN,TOTAL 0.9 mg/dL (0.2-1.3); BLOOD UREA NITROGEN 25 mg/dL (7-20); CALCIUM 8.3 mg/dL (8.4-10.2); CARBON DIOXIDE 23 mmol/L (22-30); CHLORIDE 106 mmol/L (98-107); GLUCOSE 168 mg/dL (75-110); POTASSIUM 4.3 mmol/L (3.6-5.0); SODIUM 138.1 mmol/L (137-145); TOTAL PROTEIN 5.7 g/dL (6.3-8.2)
[2018-09-14] MEDS: IPRATROPIUM/ALBUTEROL 0.5-2.5 MG/3 ML AMPUL NEB SCH ×2 (08:00→13:53)
[2018-09-14] MEDS ORDERED: GUAIFENESIN/D-METHORPHAN (200-20 MG) SYRUP 10 ML PO PRN (08:07)
[2018-09-14] MEDS ORDERED: GLIPIZIDE 5 MG TABLET PO SCH (08:45)
[2018-09-14] MEDS ORDERED: PREDNISONE 10 MG TABLET PO SCH (10:00)
[2018-09-14] MEDS: LEVOFLOXACIN 500 MG TABLET PO SCH (10:48)
[2018-09-14] MEDS: ASPIRIN 81 MG TABLET, ENT COATED PO SCH (10:49)
[2018-09-14] MEDS: METOPROLOL TARTRATE 50 MG TABLET PO SCH (10:49)
[2018-09-14] MEDS: ENOXAPARIN SODIUM INJ 30 MG/0.3 ML DISP.SYRIN SUBCUT SCH (10:49)
[2018-09-14] MEDS: GUAIFENESIN 600 MG TABLET.SA PO SCH (10:49)
[2018-09-14] MEDS: SITAGLIPTIN PHOSPHATE 50 MG TABLET PO SCH (10:49)
[2018-09-14] MEDS: TIOTROPIUM BROMIDE DPI 5 CAP/KIT (18 MCG/CAP) IH SCH (10:51)
[2018-09-14] MEDS: FLUTICASONE/SALMETEROL DISKUS 250-50 MCG/DOSE IH SCH (10:51)
--- NOTE | 2018-09-14 12:23 | RADIOLOGY REPORT (SQ) ---
EXAM DESCRIPTION: U/S ABDOMEN LIMITED W/O DOP COMPLETED DATE/TIME: 09/14/2018 12:08 pm REASON FOR STUDY: abnormal lft COMPARISON: None. TECHNIQUE: Dynamic and static grayscale images acquired of the abdomen and recorded on PACS. Additio nal selected color Doppler and spectral images recorded. LIMITATIONS: Limited visualization. Poor acoustical window FINDINGS: PANCREAS: No masses. Visualized pancreatic duct normal caliber. LIVER: Normal size Echo texture normal. No focal masses. LIVER VASCULATURE: Normal directional flow of the main portal vein and hepatic veins. GALLBLADDER: No stones. Normal wall thickness. No pericholecystic fluid. ULTRASOUND-DETECTED FRANCO'S SIGN: Negative. INTRAHEPATIC DUCTS AND COMMON DUCT: CBD and intrahepatic ducts normal caliber. No filling defects. INFERIOR VENA CAVA: Normal flow. AORTA: No aneurysm. RIGHT KIDNEY: Normal size. Normal echogenicity. No solid or suspicious masses. No hydronephros is. No calcifications. PERITONEAL AND RIGHT PLEURAL SPACE: No ascites or effusions. OTHER: No other significant findings. IMPRESSION: NORMAL RIGHT UPPER QUADRANT ULTRASOUND VISUALIZED. TECHNICAL DOCUMENTATION: JOB ID: [id number] [employer]- All Rights Reserved Reading location - IP/workstation name: [email or web address]
--- NOTE | 2018-09-14 12:50 | PDOC DISCHARGE SUMMARY ---
General - Admit/Disc Date/PCP Admission Date/Primary Care Provider: 09/11/18 22:08 NAHID CAAL Discharge Date: 09/14/18 - Discharge Diagnosis (1) Pneumonia Is this a current diagnosis for this admission?: Yes Summary: As per discussed with the pulmonary suggested continues the Levaquin and a prednisone and current nebulizer treatments (2) Fever Is this a current diagnosis for this admission?: Yes Summary: Due to the above conditions currently all resolved (3) Acute renal failure Is this a current diagnosis for this admission?: Yes Summary: Currently follow with the nephrology encourage increase more p.o. intake (4) Chronic obstructive pulmonary disease Is this a current diagnosis for this admission?: Yes Summary: Currently follow with the pulmonary (5) Coronary artery disease Is this a current diagnosis for this admission?: Yes Summary: Currently all stable patients follow outpatients Dr. Pretty (6) Sleep apnea Is this a current diagnosis for this admission?: Yes Summary: Scheduled for the CPAP titer (7) Type 2 diabetes mellitus Is this a current diagnosis for this admission?: Yes Summary: This continues to Metformin due to the elevated creatinine start on the glipizide 2.5 mg once a day and increase twice a day if is not control - Additional Information Prescriptions: Glipizide [Glipizide Xl] 2.5 mg PO DAILY #30 tab.er.24 Levofloxacin [Levaquin 500 mg Tablet] 500 mg PO DAILY #7 tablet Prednisone [Deltasone 10 mg Tablet] 10 mg PO BID #10 tablet Home Medications: Albuterol Sulfate [Proair HFA] 1 puff IH Q6HP PRN 01/18/18 Aspirin [Adult Low Dose Aspirin EC] 81 mg PO DAILY 01/18/18 Fluticasone/Salmeterol [Advair 250-50 Diskus 28 dose] 1 puff IH Q12 01/18/18 Metoprolol Tartrate [Lopressor 50 mg Tablet] 50 mg PO Q12 01/18/18 Nitroglycerin [Nitrolingual] 1 spray SL Q5MP PRN 01/18/18 Sitagliptin Phosphate [Januvia] 100 mg PO DAILY 01/18/18 Tiotropium [place] [Spiriva Handihaler 18 mcg/dose (30 Dose)] 1 puff IH DAILY Umeclidinium [place] [Incruse Ellipta] 1 puff IH DAILY 09/12/18 Glipizide [Glipizide Xl] 2.5 mg PO DAILY #30 tab.er.24 09/14/18 Levofloxacin [Levaquin 500 mg Tablet] 500 mg PO DAILY #7 tablet 09/14/18 Prednisone [Deltasone 10 mg Tablet] 10 mg PO BID #10 tablet 09/14/18 History of Present Illness History of Present Illness: KELSI SIDHU is a 77 year old male This is a 77-year-old male with a significant history of the COPD currently see a pulmonary as outpatient history of the coronary artery disease hypertension's hyperlipidemia type 2 diabetes recently also developed a renal failure and patient's Metformin and lisinopril was stopped came to the emergency department with complaint of a fever chills and shortness of the breath and increasing the cough Patient initial workup with the white count was elevated was 15 chest x-ray was all stable most likely patient underlying pneumonia decided to admit in the hospital for further evaluation and treatments Patient was given the Rocephin and Zithromax in the ER I saw the patient on the floor patient's feeling much better denied any chest pain denied any shortness of the breath Also recently developed renal failure with the current creatinine is pretty stable Ultrasound of the renal was done was all stable Hospital Course Hospital Course: This is a 77-year-old male with a significant history of the COPD coronary artery disease history of the hypertensions hyperlipidemia came to the emergency departments with a complaint of shortness of the breath cough congestion fever and chills in patients diagnosed with a possible pneumonia Also responds well with the IV antibiotic nebulizer treatment and giving IV steroid Recently developed a renal failure and patient's Metformin and lisinopril was discontinued seen by the nephrology and suggest most likely from the dehydration 's His LFT was abnormal due to the recently increase the Lipitor 80 mg by cardiology patient's CT of the abdomen and pelvis was negative and ultrasounds was also negative Patient's otherwise remained stable patient is walking the hallway no fever no chills patient was put on a p.o. antibiotic as per pulmonary suggestions and prednisone in patients follow outpatients for the CPAP Patient's otherwise follow with nephrology as scheduled appointment and follow in my office 1 week We will repeat the CBC and Chem-7 Reevaluate the patient's diabetes Discussed with the and the bedside regarding the patient's current conditions We will reevaluate the LFT functions Currently hold the statin Physical Exam Vital Signs: Temp Pulse Resp BP Pulse Ox 97.7 F 88 21 H 135/62 H 93 09/14/18 12:11 09/14/18 12:11 09/14/18 12:11 09/14/18 12:11 09/14/18 12:11 Intake & Output 09/13/18 09/14/18 09/15/18 06:59 06:59 06:59 Intake Total 2550 1040 400 Balance 2550 1040 400 Weight 62.3 kg 63.2 kg General appearance: PRESENT: no acute distress, well-developed, well-nourished Head exam: PRESENT: atraumatic, normocephalic Eye exam: PRESENT: conjunctiva pink, EOMI, PERRLA. ABSENT: scleral icterus Ear exam: PRESENT: normal external ear exam Mouth exam: PRESENT: moist, tongue midline Neck exam: PRESENT: full ROM. ABSENT: carotid bruit, JVD, lymphadenopathy, thyromegaly Respiratory exam: PRESENT: clear to auscultation eve Cardiovascular exam: PRESENT: RRR. ABSENT: diastolic murmur, rubs, systolic murmur Pulses: PRESENT: normal dorsalis pedis pul, +2 pedal pulses bilateral Vascular exam: PRESENT: normal capillary refill GI/Abdominal exam: PRESENT: normal bowel sounds, soft. ABSENT: distended, guarding, mass, organolmegaly, rebound, tenderness Rectal exam: PRESENT: deferred Extremities exam: ABSENT: pedal edema Musculoskeletal exam: PRESENT: ambulatory Neurological exam: PRESENT: alert, awake, oriented to person, oriented to place , oriented to time, oriented to situation, CN II-XII grossly intact. ABSENT: motor sensory deficit Psychiatric exam: PRESENT: appropriate affect, normal mood. ABSENT: homicidal ideation, suicidal ideation Skin exam: PRESENT: dry, intact, warm. ABSENT: cyanosis, rash Results Laboratory Results: 09/14/18 04:21 09/14/18 04:21 09/14/18 09/14/18 04:21 04:21 WBC 7.4 RBC 3.88 L Hgb 12.7 L Hct 35.8 L MCV 92 MCH 32.8 MCHC 35.5 RDW 14.2 H Plt Count 153 Seg Neutrophils % 67.6 Lymphocytes % 17.6 Monocytes % 13.6 H Eosinophils % 0.7 Basophils % 0.5 Absolute Neutrophils 5.0 Absolute Lymphocytes 1.3 Absolute Monocytes 1.0 Absolute Eosinophils 0.0 Absolute Basophils 0.0 Sodium 138.1 Potassium 4.3 Chloride 106 Carbon Dioxide 23 Anion Gap 9 BUN 25 H Creatinine 1.62 H Est GFR ( Amer) 50 L Est GFR (Non-Af Amer) 41 L Glucose 168 H Calcium 8.3 L Total Bilirubin 0.9 AST 116 H ALT 110 H Alkaline Phosphatase 83 Total Protein 5.7 L Albumin 2.6 L 09/12/18 00:25 Clean Catch Midstream Urine Culture - Final NO GROWTH 2 DAYS 09/12/18 09/12/18 04:22 04:22 Creatine Kinase 59 CK-MB (CK-2) 0.73 Troponin I < 0.012 NT-Pro-B Natriuret Pep 2160 H Impressions: Chest X-Ray 09/11/18 20:09 IMPRESSION: Chronic lung changes. Borderline cardiomegaly without pulmonary edema. Minimal left pleural effusion. Abdomen/Pelvis CT 09/13/18 00:00 IMPRESSION: NO SIGNIFICANT OR ACUTE PROCESS IN THE ABDOMEN OR PELVIS. Abdomen Ultrasound 09/14/18 00:00 IMPRESSION: NORMAL RIGHT UPPER QUADRANT ULTRASOUND VISUALIZED. Qualifiers - * PATIENT BEING DISCHARGED WITH ANY OF THE FOLLOWING DIAGNOSIS: No VTE patient discharged on overlapping Therapy?: Yes Plan Time Spent: Greater than 30 Minutes - Discharge patient home with a stable conditions follow outpatient in 1 week repeat the Chem-12 and CBC
[2018-09-14 14:25] VITALS: BP 122/65
[2018-09-15 05:41] LABS: HEPATITIS A AB IGM Negative (Negative); HEPATITIS B CORE AB IGM Negative (Negative); HEPATITS B SURFACE ANTIGEN Negative (Negative)
[2018-09-15 11:20] LABS: HEPATITIS C VIRUS ANTIBODY <0.1 s/co ratio (0.0-0.9)
== END 2018-09-14 14:58 | disposition home or self-care (01) | DRG 194 ==
LOC: ER 19:56 → EH 22:08 → 3W 23:35
PROVIDERS: ADMIT Family Medicine; ATTEND Family Medicine
DX: J18.9 Pneumonia, unspecified organism (principal); J44.0 Chronic obstructive pulmonary disease with (acute) lower respiratory infection; N17.9 Acute kidney failure, unspecified; J44.1 Chronic obstructive pulmonary disease with (acute) exacerbation; E46 Unspecified protein-calorie malnutrition; E88.09 Other disorders of plasma-protein metabolism, not elsewhere classified; N18.3 Chronic kidney disease, stage 3 (moderate); D63.1 Anemia in chronic kidney disease; I12.9 Hypertensive chronic kidney disease with stage 1 through stage 4 chronic kidney disease, or unspecified chronic kidney disease; E11.22 Type 2 diabetes mellitus with diabetic chronic kidney disease; I25.10 Atherosclerotic heart disease of native coronary artery without angina pectoris; E78.5 Hyperlipidemia, unspecified; K21.9 Gastro-esophageal reflux disease without esophagitis; G47.30 Sleep apnea, unspecified; I25.2 Old myocardial infarction; Z95.1 Presence of aortocoronary bypass graft; Z95.5 Presence of coronary angioplasty implant and graft; Z87.891 Personal history of nicotine dependence; Z79.84 Long term (current) use of oral hypoglycemic drugs; Z79.82 Long term (current) use of aspirin; Z79.51 Long term (current) use of inhaled steroids; Z79.899 Other long term (current) drug therapy; Z68.25 Body mass index [BMI] 25.0-25.9, adult
CPT/HCPCS: 36415; 71045; 74176; 76705; 80053; 80074; 81001; 82550; 82553; 82570; 82803; 82962; 83605; 83880; 84156; 84484; 85025; 85610; 87040; 87086; 87205; 87804; 93005; 93010; 94640; 96365; 96375; 99291; J0456; J0696; J1650; J1815; J2930; J3490; J7512; J7620

== ENCOUNTER → 2018-10-11 | Outpatient (CLI) | payer MEDICARE, MEDICAID ==
[2018-10-11 10:20] LABS: ALANINE AMINOTRANSFERASE 18 U/L (21-72); ALBUMIN 3.6 g/dL (3.5-5.0); ALKALINE PHOSPHATASE 80 U/L (38-126); ANION GAP 6 (5-19); ASPARTATE AMINO TRANSFERASE 21 U/L (17-59); BILIRUBIN,DIRECT 0.4 mg/dL (0.0-0.4); BILIRUBIN,TOTAL 1.5 mg/dL (0.2-1.3); BLOOD UREA NITROGEN 16 mg/dL (7-20); CARBON DIOXIDE 30 mmol/L (22-30); CHLORIDE 103 mmol/L (98-107); CHOLESTEROL 251.48 mg/dL (0-200); GLUCOSE 130 mg/dL (75-110); POTASSIUM 4.9 mmol/L (3.6-5.0); TOTAL PROTEIN 7.1 g/dL (6.3-8.2); TRIGLYCERIDES 106 mg/dL (<150)
[2018-10-11 10:30] LABS: DIRECT LDL 196 mg/dL (<100)
== END ==
LOC: OD 08:08
PROVIDERS: ATTEND Internal Medicine Cardiovascular Disease
DX: E78.2 Mixed hyperlipidemia (principal); R94.5 Abnormal results of liver function studies; I10 Essential (primary) hypertension; Z79.899 Other long term (current) drug therapy
CPT/HCPCS: 36415; 80048; 80061; 80076

== ENCOUNTER → 2018-10-29 | Outpatient (CLI) | payer MEDICARE, MEDICAID ==
[2018-10-29 08:53] LABS: ANION GAP 8 (5-19); BLOOD UREA NITROGEN 18 mg/dL (7-20); CALCIUM 9.3 mg/dL (8.4-10.2); CARBON DIOXIDE 28 mmol/L (22-30); CHLORIDE 103 mmol/L (98-107); GLUCOSE 113 mg/dL (75-110); POTASSIUM 4.4 mmol/L (3.6-5.0); SODIUM 138.8 mmol/L (137-145)
== END ==
LOC: OD 07:37
PROVIDERS: ATTEND Internal Medicine Cardiovascular Disease
DX: I10 Essential (primary) hypertension (principal); E11.9 Type 2 diabetes mellitus without complications; Z79.899 Other long term (current) drug therapy
CPT/HCPCS: 36415; 80048

== ENCOUNTER → 2018-12-20 | Outpatient (CLI) | payer MEDICARE, MEDICAID ==
[2018-12-20 08:57] LABS: ALANINE AMINOTRANSFERASE 33 U/L (21-72); ALBUMIN 4.1 g/dL (3.5-5.0); ALKALINE PHOSPHATASE 76 U/L (38-126); ASPARTATE AMINO TRANSFERASE 27 U/L (17-59); BILIRUBIN,DIRECT 0.2 mg/dL (0.0-0.4); BILIRUBIN,TOTAL 1.9 mg/dL (0.2-1.3); CHOLESTEROL 150.47 mg/dL (0-200); TRIGLYCERIDES 99 mg/dL (<150)
[2018-12-20 09:09] LABS: DIRECT LDL 82 mg/dL (<100)
== END ==
LOC: OD 07:43
PROVIDERS: ATTEND Internal Medicine Cardiovascular Disease
DX: E78.2 Mixed hyperlipidemia (principal); Z79.899 Other long term (current) drug therapy
CPT/HCPCS: 36415; 80061; 80076

== ENCOUNTER → 2018-12-25 | Outpatient (CLI) | payer MEDICARE, MEDICAID ==
--- NOTE | 2018-12-25 14:58 | RADIOLOGY REPORT ---
STRESS TEST REPORT PATIENT NAME: KELSI SIDHU ROOM#: DATE OF SERVICE: 12/25/2018 AGE: 77Y ORDER#: [id number] REFERRING MD: LISETTE MEYERS M.D. PROCEDURE PERFORMED: Rest/stress single isotope Cardiolite SPECT imaging with IV Lexiscan stress and gated SPECT imaging. INDICATION: Assessment of coronary artery disease, status post triple coronary artery bypass surgery, current complaints of exertional dyspnea. CLINICAL HISTORY: This is a 77-year-old [place] male status post coronary artery bypass surgery x3 after an old inferoposterior [place], continuing risk factors of hypertension, hypercholesterolemia, and diabetes. REPORT The patient performed a modified Leander protocol on treadmill exercise testing, completing 4 minutes of walking at a speed of 1.7 mph x10% grade and completing an estimated workload of 4 METS. The resting heart rate was 83 bpm and increased barely to 121 bpm at peak exercise; this was 85% of the maximum predicted heart rate. Blood pressure response to exercise was hypertensive, resting blood pressure 153/74, at peak exercise the blood pressure was 208/104. The patient developed symptoms of exertional dyspnea but denies chest pains. Resting 12-lead EKG showed NSR at 83 bpm with bigeminal PAC, old true posterior NJ, nonspecific T inversion in the aVL lead. Treadmill EKG showed no additional ST-T depression and no paroxysmal atrial fibrillation seen. The patient had complaints of difficulty breathing and unable to walk well on the treadmill, but there was no post-exercise wheezing on auscultation. Myocardial perfusion imaging was performed at rest 60 minutes following the injection of 10.48 mCi of Cardiolite. At peak exercise he was injected with 32.5 mCi of Cardiolite and flushed. Gated post-stress tomographic imaging was performed 20 minutes after stress. SUMMARY OF FINDINGS/IMPRESSION: to be dictated later. INTERPRETING PHYSICIAN: LISETTE MEYERS M.D. /: [id number] TT: [id number] ID: [id number] /: [id number] TD: 0929 JOB: [id number] cc:LISETTE MEYERS M.D. > MTDD
== END ==
LOC: RAD 06:10
PROVIDERS: ATTEND Internal Medicine Cardiovascular Disease
DX: I25.10 Atherosclerotic heart disease of native coronary artery without angina pectoris (principal); Z95.1 Presence of aortocoronary bypass graft; I10 Essential (primary) hypertension; E78.5 Hyperlipidemia, unspecified; E11.9 Type 2 diabetes mellitus without complications; I25.2 Old myocardial infarction
CPT/HCPCS: 93017; 78452; A9500; Q9969

== ENCOUNTER → 2019-04-09 | Outpatient (CLI) | payer MEDICARE, MEDICAID ==
[2019-04-09 11:36] LABS: ALANINE AMINOTRANSFERASE 32 U/L (21-72); ALKALINE PHOSPHATASE 89 U/L (38-126); ANION GAP 8 (5-19); ASPARTATE AMINO TRANSFERASE 32 U/L (17-59); BILIRUBIN,DIRECT 0.3 mg/dL (0.0-0.4); BILIRUBIN,TOTAL 1.9 mg/dL (0.2-1.3); BLOOD UREA NITROGEN 26 mg/dL (7-20); CALCIUM 9.4 mg/dL (8.4-10.2); CARBON DIOXIDE 27 mmol/L (22-30); CHLORIDE 107 mmol/L (98-107); CHOLESTEROL 153.85 mg/dL (0-200); GLUCOSE 125 mg/dL (75-110); POTASSIUM 4.6 mmol/L (3.6-5.0); TOTAL PROTEIN 7.2 g/dL (6.3-8.2); TRIGLYCERIDES 83 mg/dL (<150)
[2019-04-09 11:47] LABS: DIRECT LDL 95 mg/dL (<100)
== END ==
LOC: LAB 10:53
PROVIDERS: ATTEND Internal Medicine Cardiovascular Disease
DX: E78.2 Mixed hyperlipidemia (principal); I10 Essential (primary) hypertension; Z79.899 Other long term (current) drug therapy
CPT/HCPCS: 36415; 80048; 80061; 80076

== ENCOUNTER 2019-04-19 04:03 | Emergency (ER) | payer MEDICAID, MEDICARE ==
[2019-04-19] MEDS ORDERED: IPRATROPIUM/ALBUTEROL 0.5-2.5 MG/3 ML AMPUL NEB ONE (05:18)
--- NOTE | 2019-04-19 05:19 | ER Document Report ---
ED Medical Screen (RME) - General Chief Complaint: Shortness Of Breath Stated Complaint: TROUBLE BREATHING Time Seen by Provider: 04/19/19 05:16 Primary Care Provider: LISETTE MEYERS MD [EMERITUS] - Follow up as needed Mode of Arrival: Wheelchair Information source: Patient, Relative, [facility] Records Notes: 78-year-old male with COPD, diabetes, coronary artery disease presents with shortness of breath that started 2 hours prior to arrival. I have greeted and performed a rapid initial assessment of this patient. A comprehensive ED assessment and evaluation of the patient, analysis of test results and completion of medical decision making process we will be contacted by additional ED providers. PHYSICAL EXAMINATION: Vital signs reviewed GENERAL: Ill-appearing LUNGS: Increased work of breathing, diminished breath sounds Musculoskeletal: Normal range of motion NEUROLOGICAL: Normal speech, normal gait. PSYCH: Normal mood, normal affect. SKIN: Warm, Dry, normal turgor, no rashes or lesions noted. TRAVEL OUTSIDE OF THE [place] IN LAST 30 DAYS: No - Related Data Allergies/Adverse Reactions: No Known Allergies Allergy (Verified 06/08/18 21:47) Past Medical History - Past Medical History Cardiac Medical History: Reports: Hx Coronary Artery Disease, Hx Heart Attack, Hx Hypercholesterolemia, Hx Hypertension Pulmonary Medical History: Reports: Hx COPD, Hx Sleep Apnea Endocrine Medical History: Reports: Hx Diabetes Mellitus Type 2 Renal/ Medical History: Denies: Hx Peritoneal Dialysis GI Medical History: Reports: Hx Gastroesophageal Reflux Disease Psychiatric Medical History: Denies: Hx Depression Past Surgical History: Reports: Hx Cardiac Catheterization, Hx Coronary Artery Bypass Graft - X3 on 07/26/2008, Hx Open Heart Surgery, Other - Cyst excision on posterior neck - Immunizations Immunizations up to date: Yes History of Influenza Vaccine for 08/2017 - 01/2018 Season: Yes Influenza Administration Date for 08/2017 - 01/2018 Season: 11/06/17 Physical Exam - Vital signs Vitals: Temp Pulse BP Pulse Ox 98.0 F 86 151/77 H 89 L 04/19/19 04:12 04/19/19 04:12 04/19/19 04:12 04/19/19 04:12 Course - Vital Signs Vital signs: Temp Pulse Resp BP Pulse Ox 98.0 F 85 24 H 131/73 H 90 L 04/19/19 04:12 04/19/19 05:00 04/19/19 05:00 04/19/19 05:00 04/19/19 05:00 Doctor's Discharge - Discharge Referrals: LISETTE MEYERS MD [EMERITUS] - Follow up as needed
[2019-04-19 05:40] LABS: ABSOLUTE BASOPHILS # (AUTO) 0.1 10^3/uL (0.0-0.2); ABSOLUTE EOSINOPHILS # (AUTO) 0.2 10^3/uL (0.0-0.6); ABSOLUTE LYMPHOCYTES (AUTO) 2.2 10^3/uL (0.5-4.7); ABSOLUTE MONOCYTES (AUTO) 1.2 10^3/uL (0.1-1.4); ABSOLUTE NEUT (AUTO) 9.7 10^3/uL (1.7-8.2); BASOPHILS % (AUTO) 0.4 % (0-2); EOSINOPHILS % (AUTO) 1.3 % (0-6); HEMATOCRIT 46.9 % (37.9-51.0); HEMOGLOBIN 16.1 g/dL (13.5-17.0); LYMPHOCYTES % (AUTO) 16.4 % (13-45); MEAN CORPUSCULAR HEMOGLOBIN 32.2 pg (27.0-33.4); MEAN CORPUSCULAR HGB CONC 34.3 g/dL (32.0-36.0); MEAN CORPUSCULAR VOLUME 94 fl (80-97); PLATELET COUNT 140 10^3/uL (150-450); RED BLOOD COUNT 4.99 10^6/uL (4.35-5.55); RED CELL DISTRIBUTION WIDTH 13.7 % (11.5-14.0); SEGMENTED NEUTROPHILS % (AUTO) 72.9 % (42-78); TOTAL CELLS COUNTED % (AUTO) 100 %; WHITE BLOOD COUNT 13.4 10^3/uL (4.0-10.5)
[2019-04-19 05:44] LABS: VENOUS BLOOD HCO3 29.6 mmol/L (20-32); VENOUS BLOOD PCO2 57.1 mmHg (35-63); VENOUS BLOOD PH 7.33 (7.30-7.42)
[2019-04-19 05:56] LABS: INTERNATIONAL RATION (INR) 0.93
[2019-04-19 06:09] LABS: CREATINE KINASE MB 0.78 ng/mL (<4.55); NT PRO BNP 276 pg/mL (<450)
[2019-04-19 06:10] LABS: TROPONIN I < 0.012 ng/mL
[2019-04-19 06:11] LABS: ALANINE AMINOTRANSFERASE 38 U/L (21-72); ALBUMIN 4.2 g/dL (3.5-5.0); ALKALINE PHOSPHATASE 78 U/L (38-126); ANION GAP 8 (5-19); ASPARTATE AMINO TRANSFERASE 36 U/L (17-59); BILIRUBIN,DIRECT 0.1 mg/dL (0.0-0.4); BILIRUBIN,TOTAL 1.8 mg/dL (0.2-1.3); BLOOD UREA NITROGEN 17 mg/dL (7-20); CALCIUM 9.3 mg/dL (8.4-10.2); CARBON DIOXIDE 29 mmol/L (22-30); CHLORIDE 103 mmol/L (98-107); CREATINE KINASE 67 U/L (55-170); GLUCOSE 90 mg/dL (75-110); POTASSIUM 4.6 mmol/L (3.6-5.0); SODIUM 139.8 mmol/L (137-145); TOTAL PROTEIN 7.7 g/dL (6.3-8.2)
--- NOTE | 2019-04-19 06:11 | RADIOLOGY REPORT (SQ) ---
EXAM DESCRIPTION: XR CHEST 1 VIEW COMPLETED DATE/TME: 04/19/2019 05:17 CLINICAL HISTORY: 78 years, Male, sob COMPARISON: 09/11/2018 chest NUMBER OF VIEWS: 1 TECHNIQUE: Portable chest LIMITATIONS: None. FINDINGS: Heart size is normal. Sternotomy wires and valve replacement. Osteopenia. Atheromatous change thoracic aorta. No pneumothorax. Underlying emphysema IMPRESSION: Underlying emphysema with stable postsurgical change copyright 2010 [employer]- All Rights Reserved
[2019-04-19] MEDS ORDERED: METHYLPREDNISOLONE INJ 125 MG/2 ML SDV IV ONE (06:18)
[2019-04-19] MEDS ORDERED: ALBUTEROL SULFATE 0.083% NEB 2.5 MG/3 ML AMPUL NEB ONE (06:18)
[2019-04-19] MEDS ORDERED: AMOXICILLIN TRIHYDRATE 500 MG CAPSULE PO ONE (06:23)
--- NOTE | 2019-04-19 07:40 | EKG REPORT ---
SEVERITY:- ABNORMAL ECG - SINUS RHYTHM BORDERLINE INFERIOR Q WAVES CONSIDER OLD TRUE POST IA. : Confirmed by: Evaristo Pretty MD 19-Apr-2019 07:39:44
--- NOTE | 2019-04-19 07:50 | ER Document Report ---
ED Respiratory Problem - General Chief Complaint: Shortness Of Breath Stated Complaint: TROUBLE BREATHING Time Seen by Provider: 04/19/19 05:16 Primary Care Provider: LISETTE MEYERS MD [EMERITUS] - Follow up as needed Mode of Arrival: Wheelchair Notes: This is a 78-year-old male to the emergency department with chief complaint of shortness of breath. Patient has long-standing history of COPD. Has a CPAP machine. States that he has a new CPAP machine and it has not been working as well. Is supposed to get this figured out later but was having significant shortness of breath. Patient does not wear oxygen chronically. Denies any chest pain. Most of his complaints are in his chest with shortness of breath. Has had open heart surgery in the past. Denies any other major issues. TRAVEL OUTSIDE OF THE [place] IN LAST 30 DAYS: No - HPI Patient complains to provider of: COPD, Cough, Short of breath Duration: Better, Continuous Quality of pain: No pain Severity: Mild Pain Level: Denies Context: Hx COPD Short of Breath: Moderate - Related Data Allergies/Adverse Reactions: No Known Allergies Allergy (Verified 06/08/18 21:47) Past Medical History - General Information source: Patient, Relative, [facility] Records - Social History Smoking Status: Former Smoker Frequency of alcohol use: None Drug Abuse: None Lives with: Spouse/Significant other Family History: Reviewed & Not Pertinent Patient has suicidal ideation: No Patient has homicidal ideation: No - Past Medical History Cardiac Medical History: Reports: Hx Coronary Artery Disease, Hx Heart Attack, Hx Hypercholesterolemia, Hx Hypertension Pulmonary Medical History: Reports: Hx COPD, Hx Sleep Apnea Endocrine Medical History: Reports: Hx Diabetes Mellitus Type 2 Renal/ Medical History: Denies: Hx Peritoneal Dialysis GI Medical History: Reports: Hx Gastroesophageal Reflux Disease Psychiatric Medical History: Denies: Hx Depression Past Surgical History: Reports: Hx Cardiac Catheterization, Hx Coronary Artery Bypass Graft - X3 on 07/26/2008, Hx Open Heart Surgery, Other - Cyst excision on posterior neck - Immunizations Immunizations up to date: Yes Hx Pneumococcal Vaccination: 01/04/18 Review of Systems - Review of Systems Notes: Constitutional: denies: Chills, Diaphoresis, Fever, Malaise, Weakness EENT: denies: Eye discharge, Blurred vision, Tearing, Double vision, Nose congestion, Nose discharge, Throat swelling, Mouth pain Cardiovascular: denies: Palpitations, Heart racing, +Orthopnea, +Dyspnea, -Chest pain Respiratory: denies: Cough, Hurts to breathe, +Wheezing, +Shortness of breath Gastrointestinal: denies: Abdominal pain, Diarrhea, Nausea, Vomiting, Black stools, bright red blood in stool Genitourinary: denies: Burning, Dysuria, Discharge, Frequency, Flank pain, He maturia Musculoskeletal: denies: Joint pain, Joint swelling, Muscle pain, Muscle stiffness, back pain Hematologic/Lymphatic: denies: Anemia, Easy bleeding, Easy bruising, Blood clots Neurological/Psychological: denies: Confusion, Dementia, Depression, Loss of consciousness Skin: No lesions, no masses, no skin breakdown, no abscesses Physical Exam - Vital signs Vitals: Temp Pulse BP Pulse Ox 98.0 F 86 151/77 H 89 L 04/19/19 04:12 04/19/19 04:12 04/19/19 04:12 04/19/19 04:12 Interpretation: Normal - General General appearance: Appears well, Alert - HEENT Head: Normocephalic, Atraumatic Eyes: Normal Pupils: PERRL - Respiratory Respiratory status: No respiratory distress Chest status: Nontender Breath sounds: Other - There are a few faint crackles at the bases bilaterally. No obvious wheezing. Chest palpation: Normal - Cardiovascular Rhythm: Regular Heart sounds: Normal auscultation Murmur: No - Abdominal Inspection: Normal Distension: No distension Bowel sounds: Normal Tenderness: Nontender Organomegaly: No organomegaly - Back Back: Normal, Nontender - Extremities General upper extremity: Normal inspection, Nontender, Normal color, Normal ROM, Normal temperature General lower extremity: Normal inspection, Nontender, Normal color, Normal ROM, Normal temperature, Normal weight bearing. No: Brent's sign - Neurological Neuro grossly intact: Yes Cognition: Normal Orientation: AAOx4 Ben Coma Scale Eye Opening: Spontaneous [place] Coma Scale Verbal: Oriented Ben Coma Scale Motor: Obeys Commands Ben Coma Scale Total: 15 Speech: Normal Motor strength normal: LUE, RUE, LLE, RLE Sensory: Normal - Psychological Associated symptoms: Normal affect, Normal mood - Skin Skin Temperature: Warm Skin Moisture: Dry Skin Color: Normal Course - Re-evaluation Re-evalutation: 04/19/19 07:50 This is a 78-year-old male with history of COPD. Patient has received some breathing treatments and steroids. Off of the oxygen his heart rate is in the 80s but his oxygen level drops to about 91. 04/19/19 07:51 Patient has received steroids, breathing treatments and antibiotics. If he can maintain his oxygen level greater than 91% off of oxygen I feel comfortable letting him go home if not will have to admit. 04/19/19 07:55 Laboratory 04/19/19 04/19/19 04/19/19 05:15 05:15 05:15 WBC 13.4 H RBC 4.99 Hgb 16.1 Hct 46.9 MCV 94 MCH 32.2 MCHC 34.3 RDW 13.7 Plt Count 140 L Seg Neutrophils % 72.9 Lymphocytes % 16.4 Monocytes % 9.0 Eosinophils % 1.3 Basophils % 0.4 Absolute Neutrophils 9.7 H Absolute Lymphocytes 2.2 Absolute Monocytes 1.2 Absolute Eosinophils 0.2 Absolute Basophils 0.1 PT 13.0 INR 0.93 VBG pH VBG pCO2 VBG HCO3 VBG Base Excess Sodium 139.8 Potassium 4.6 Chloride 103 Carbon Dioxide 29 Anion Gap 8 BUN 17 Creatinine 1.29 H Est GFR ( Amer) > 60 Est GFR (Non-Af Amer) 54 L Glucose 90 Calcium 9.3 Total Bilirubin 1.8 H Direct Bilirubin 0.1 Neonat Total Bilirubin Not Reportable Neonat Direct Bilirubin Not Reportable Neonat Indirect Bili Not Reportable AST 36 ALT 38 Alkaline Phosphatase 78 Creatine Kinase 67 CK-MB (CK-2) Troponin I NT-Pro-B Natriuret Pep Total Protein 7.7 Albumin 4.2 04/19/19 04/19/19 05:15 05:15 WBC RBC Hgb Hct MCV MCH MCHC RDW Plt Count Seg Neutrophils % Lymphocytes % Monocytes % Eosinophils % Basophils % Absolute Neutrophils Absolute Lymphocytes Absolute Monocytes Absolute Eosinophils Absolute Basophils PT INR VBG pH 7.33 VBG pCO2 57.1 VBG HCO3 29.6 VBG Base Excess 2.0 Sodium Potassium Chloride Carbon Dioxide Anion Gap BUN Creatinine Est GFR ( Amer) Est GFR (Non-Af Amer) Glucose Calcium Total Bilirubin Direct Bilirubin Neonat Total Bilirubin Neonat Direct Bilirubin Neonat Indirect Bili AST ALT Alkaline Phosphatase Creatine Kinase CK-MB (CK-2) 0.78 Troponin I < 0.012 NT-Pro-B Natriuret Pep 276 Total Protein Albumin 06/14/19 07:55 Chest X-Ray 04/19/19 05:17 IMPRESSION: Underlying emphysema with stable postsurgical change copyright 2011 [employer]- All Rights Reserved 04/19/19 08:45 At this time patient is maintaining his oxygen saturations above 90%. Does not significantly drop with ambulation. Was able to walk down the hallway without difficulty. Actually patient was moving very briskly. His oxygen level did drop to 89%. At this time patient is adamant that he does not want to be admitted. He has a equities analyst. On room air he is sitting at 91%. I have given him bronchodilators and steroids. Antibiotics. Patient would like to try outpatient therapy. At this time will discharge in stable condition and advised him to follow-up with pulmonology today or as soon as possible. 04/19/19 09:03 - Vital Signs Vital signs: Temp Pulse Resp BP Pulse Ox 98.0 F 85 25 H 112/96 H 92 04/19/19 04:12 04/19/19 05:00 04/19/19 07:01 04/19/19 07:01 04/19/19 07:01 - Laboratory Result Diagrams: 04/19/19 05:15 04/19/19 05:15 Laboratory results interpreted by me: 04/19/19 04/19/19 05:15 05:15 WBC 13.4 H Plt Count 140 L Absolute Neutrophils 9.7 H Creatinine 1.29 H Est GFR (Non-Af Amer) 54 L Total Bilirubin 1.8 H - EKG Interpretation by Vt EKG shows normal: Sinus rhythm, [place], Intervals, QRS Complexes, ST-T Waves Discharge - Discharge Clinical Impression: COPD exacerbation Condition: Good Disposition: HOME, SELF-CARE Instructions: Chronic Obstructive Lung Disease ([facility]) Additional Instructions: Please follow-up with your doctor. Discussed the issues you are having with your CPAP machine. Begin the antibiotics, breathing treatments and steroids as instructed. In the event that you notice your breathing is getting worse it is very important that you return for repeat evaluation Prescriptions: Albuterol Sulfate [Ventolin Hfa 8 gm Mdi (1 Mdi/ER Disp)] 2 puff IH ASDIR PRN 5 Days #1 inhaler PRN Reason: Albuterol Sulfate [Ventolin 0.083% Neb 2.5 mg/3 mL Ampul] 2.5 mg NEB Q4H 7 Days #25 vial.neb Amoxicillin Trihydrate [Amoxil 500 mg Capsule] 500 mg PO TID 10 Days #30 capsule Prednisone [Deltasone] 60 mg PO DAILY 5 Days #15 tablet Referrals: LISETTE MEYERS MD [EMERITUS] - Follow up as needed SAMMY SILVERIO MD [ACTIVE STAFF] - Follow up in 3-5 days
[2019-04-19 09:45] VITALS: BP 126/69
== END 2019-04-19 09:45 | disposition home or self-care (01) ==
LOC: ER 04:03
DX: J43.9 Emphysema, unspecified (principal); G47.30 Sleep apnea, unspecified; Z99.89 Dependence on other enabling machines and devices; R06.02 Shortness of breath; R05 Cough; I25.10 Atherosclerotic heart disease of native coronary artery without angina pectoris; I10 Essential (primary) hypertension; I25.2 Old myocardial infarction; E11.9 Type 2 diabetes mellitus without complications; Z95.1 Presence of aortocoronary bypass graft
CPT/HCPCS: 93005; 94640 ×2; 99285; 96374; 36415; 82553; 82550; 85025; 85610; 80053; 84484; 82803; 83880; 71045; 93010; A9270 ×3; J2930; J7620

== ENCOUNTER → 2019-07-02 | Outpatient (CLI) | payer MEDICAID, MEDICARE ==
--- NOTE | 2019-07-02 12:55 | RADIOLOGY REPORT (SQ) ---
EXAM DESCRIPTION: U/S RETROPERITON (RENAL/AORTA) COMPLETED DATE/TIME: 07/02/2019 12:28 pm REASON FOR STUDY: CKD III (N18.3) N18.3 CHRONIC KIDNEY DISEASE, STAGE 3 (MODERATE) COMPARISON: 08/06/2018 TECHNIQUE: Dynamic and static grayscale images acquired of the kidneys and bladder and recorded on P ACS. Additional selected color Doppler and spectral images recorded. LIMITATIONS: None. FINDINGS: RIGHT KIDNEY: Small, 8.9 cm. Normal echogenicity. No solid or suspicious masses. No hydron ephrosis. No calcifications. LEFT KIDNEY: Small, 8.7 cm. Normal echogenicity. No solid or suspicious masses ; small cyst. No yd ronephrosis. No calcifications. BLADDER: Bladder is not well filled. There appears to be nodular protrusion of the prostate gland in to the base of the bladder. OTHER FINDINGS: The prostate gland is enlarged. IMPRESSION: The kidneys are small but otherwise unremarkable. Bladder is not optimally evaluated. The prostate gland is enlarged. TECHNICAL DOCUMENTATION: JOB ID: [id number] [employer]- All Rights Reserved Reading location - IP/workstation name: [email or web address]
== END ==
LOC: RAD 10:34
PROVIDERS: ATTEND Internal Medicine Nephrology
DX: N18.3 Chronic kidney disease, stage 3 (moderate) (principal); N40.0 Benign prostatic hyperplasia without lower urinary tract symptoms
CPT/HCPCS: 76770

== ENCOUNTER 2019-09-17 11:58 | Emergency (ER) | payer MEDICARE ==
[2019-09-17 12:03] VITALS: BP 151/71
[2019-09-17] MEDS ORDERED: ACETAMINOPHEN 325 MG TABLET PO ONE (12:14)
--- NOTE | 2019-09-17 12:20 | ER Document Report ---
ED Oral Problem - General Chief Complaint: Toothache Stated Complaint: TOOTHACHE Time Seen by Provider: 09/17/19 12:11 Primary Care Provider: REINA RIVERS MD [ACTIVE STAFF] - Follow up as needed RAJESH GOLDEN DDS [NO LOCAL MD] - Follow up in 3-5 days (for denstistry follow up) TRAVEL OUTSIDE OF THE [place] IN LAST 30 DAYS: No - HPI Notes: 78-year-old male to the emergency department with family with complaints of a lower right toothache for the past 2 days. States that he has been taking Aleve although he should not because he is directed not to by his research manager for the pain. It has not helped. He states that his mouth is felt a little bit swollen as well. Denies any drooling, fevers, chills, facial swelling, difficulty swallowing, shortness of breath. - Related Data Allergies/Adverse Reactions: No Known Allergies Allergy (Verified 09/17/19 12:12) Past Medical History - General Information source: Patient, Relative - Social History Smoking Status: Former Smoker Frequency of alcohol use: None Drug Abuse: None Lives with: Family Family History: Reviewed & Not Pertinent - Past Medical History Cardiac Medical History: Reports: Hx Coronary Artery Disease, Hx Heart Attack, Hx Hypercholesterolemia, Hx Hypertension Pulmonary Medical History: Reports: Hx COPD, Hx Sleep Apnea Endocrine Medical History: Reports: Hx Diabetes Mellitus Type 2 Renal/ Medical History: Denies: Hx Peritoneal Dialysis GI Medical History: Reports: Hx Gastroesophageal Reflux Disease Psychiatric Medical History: Denies: Hx Depression Past Surgical History: Reports: Hx Cardiac Catheterization, Hx Coronary Artery Bypass Graft - X3 on 07/26/2008, Hx Open Heart Surgery, Other - Cyst excision on posterior neck - Immunizations Immunizations up to date: Yes Hx Pneumococcal Vaccination: 01/04/18 Review of Systems - Review of Systems Constitutional: denies: Chills, Fever EENT: Mouth pain, Dental problem Cardiovascular: denies: Chest pain, Palpitations, Heart racing, Orthopnea, Dyspnea Respiratory: denies: Cough, Short of breath Gastrointestinal: denies: Abdominal pain, Diarrhea, Nausea, Vomiting Genitourinary: No symptoms reported Male Genitourinary: No symptoms reported Musculoskeletal: No symptoms reported Skin: No symptoms reported Hematologic/Lymphatic: No symptoms reported Neurological/Psychological: No symptoms reported -: Yes All other systems reviewed and negative Physical Exam - Vital signs Vitals: Temp Pulse Resp BP Pulse Ox 97.8 F 77 20 151/71 H 93 09/17/19 12:02 09/17/19 12:02 09/17/19 12:02 09/17/19 12:02 09/17/19 12:02 Interpretation: Normal - General General appearance: Appears well, Alert - HEENT Head: Normocephalic Eyes: Normal Ears: Normal External canal: Normal Tympanic membrane: Normal Sinus: Normal Nasal: Normal Mouth/Lips: Caries - There are no teeth to the upper gums. There is only the front few teeth in the lower gums. Tooth #6 is eroded and tender to palpation along the gum. There is no chika abscess. There is no ludwigs angina. There is no drooling. Airway is grossly patent. Pharynx: Normal, Uvular edema. No: Peritonsillar abscess, Post nasal drainage, Retropharyngeal abscess, Tonsillar hypertrophy, Potential airway comprom. Neck: Normal, Supple. No: Lymphadenopathy, Meningismus - Respiratory Respiratory status: No respiratory distress - Is dragon No Chest status: Nontender Breath sounds: Normal Chest palpation: Normal - Cardiovascular Rhythm: Regular Heart sounds: Normal auscultation Murmur: No - Back Back: Normal, Nontender - Neurological Neuro grossly intact: Yes Cognition: Normal Orientation: AAOx4 [place] Coma Scale Eye Opening: Spontaneous Ben Coma Scale Verbal: Oriented Ben Coma Scale Motor: Obeys Commands Ben Coma Scale Total: 15 Speech: Normal Motor strength normal: LUE, RUE, LLE, RLE Sensory: Normal - Psychological Associated symptoms: Normal affect, Normal mood - Skin Skin Temperature: Warm Skin Moisture: Dry Skin Color: Normal Course - Re-evaluation Re-evalutation: 09/17/19 Impression: Dental caries, dental pain, toothache. Will start on amoxicillin and viscous lidocaine. It was only until after Motrin was sent over to the pharmacy that patient revealed that he status post be taking any NSAIDs. I have encouraged him not to use the Motrin that was written. And to declined it at the pharmacy. Patient and his family agree with the plan. Will discharge home. Will give information for dentist. - Vital Signs Vital signs: Temp Pulse Resp BP Pulse Ox 97.8 F 77 20 151/71 H 93 09/17/19 12:02 09/17/19 12:02 09/17/19 12:02 09/17/19 12:02 09/17/19 12:02 Discharge - Discharge Clinical Impression: Toothache Condition: Stable Disposition: HOME, SELF-CARE Instructions: Toothache ([facility]) Additional Instructions: COMPLETE ALL ANTIBIOTICS. FOLLOW UP WITH THE DENTIST WITHOUT FAIL. RETURN IF WORSENING PAIN OR SWELLING. USE TYLENOL ONLY FOR PAIN CONTROL. Prescriptions: Amoxicillin Trihydrate [Amoxil 500 mg Capsule] 500 mg PO TID 10 Days #30 capsule Ibuprofen [Motrin 800 mg Tablet] 800 mg PO BID #30 tab Lidocaine HCl [Xylocaine Viscous] 5 ml PO Q6H PRN #100 ml PRN Reason: Referrals: REINA RIVERS MD [ACTIVE STAFF] - Follow up as needed RAJESH GOLDEN DDS [NO LOCAL MD] - Follow up in 3-5 days (for denstistry follow up)
== END 2019-09-17 12:37 | disposition home or self-care (01) ==
LOC: ER 11:58
DX: K08.9 Disorder of teeth and supporting structures, unspecified (principal); I25.10 Atherosclerotic heart disease of native coronary artery without angina pectoris; I25.2 Old myocardial infarction; I10 Essential (primary) hypertension; E78.00 Pure hypercholesterolemia, unspecified; J44.9 Chronic obstructive pulmonary disease, unspecified; E11.9 Type 2 diabetes mellitus without complications; Z95.1 Presence of aortocoronary bypass graft
CPT/HCPCS: 99282

== ENCOUNTER → 2019-10-18 | Outpatient (CLI) | payer MEDICARE ==
[2019-10-18 10:51] LABS: ANION GAP 7 (5-19); BLOOD UREA NITROGEN 20 mg/dL (7-20); CALCIUM 9.1 mg/dL (8.4-10.2); CARBON DIOXIDE 28 mmol/L (22-30); CHLORIDE 104 mmol/L (98-107); CHOLESTEROL 165.17 mg/dL (0-200); GLUCOSE 151 mg/dL (75-110); POTASSIUM 4.5 mmol/L (3.6-5.0); TRIGLYCERIDES 107 mg/dL (<150)
[2019-10-18 11:01] LABS: DIRECT LDL 102 mg/dL (<100)
== END ==
LOC: LAB 09:55
PROVIDERS: ATTEND Internal Medicine Cardiovascular Disease
DX: E78.2 Mixed hyperlipidemia (principal); I10 Essential (primary) hypertension; Z79.899 Other long term (current) drug therapy
CPT/HCPCS: 36415; 80048; 80061

== ENCOUNTER → 2020-07-27 | Outpatient (CLI) | payer MEDICAID, MEDICARE ==
--- NOTE | 2020-07-27 10:41 | RADIOLOGY REPORT (SQ) ---
EXAM DESCRIPTION: CT CHEST WITHOUT IMAGES COMPLETED DATE/TIME: 07/27/2020 10:21 am REASON FOR STUDY: OTHER NONSPECIFIC ABNORMAL FINDING OF LUNG FIELD R91.8 OTHER NONSPECIFIC ABNORMAL FINDING OF LUNG FIELD COMPARISON: 04/19/2019, prior CT chest dated 06/09/2018 TECHNIQUE: CT scan performed of the chest without intravenous contrast. Images reviewed with lung, soft tissue and bone windows. Reconstructed coronal and sagittal MPR images reviewed. All images st ored on PACS. All CT scanners at this facility use dose modulation, iterative reconstruction, and/or weight based d osing when appropriate to reduce radiation dose to as low as reasonably achievable (ALARA). [facility]: Dose Right [facility]: CareDose [facility]: Dose Right [facility]: Teradose 4D [facility]: Zignals RADIATION DOSE: CT Rad equipment meets quality standard of care and radiation dose reduction techniq ues were employed. CTDIvol: 4.8 mGy. DLP: 183 mGy-cm. mGy. LIMITATIONS: No technical limitations. FINDINGS: LUNGS AND PLEURA: Stable scarring in the right apex. Bilateral centrilobular emphysematou s changes. Previously described left basilar nodular infiltrate has resolved. Some chronic intersti tial changes are noted. No effusions. No suspicious pulmonary nodules. HILAR AND MEDIASTINAL STRUCTURES: No identified masses or abnormal nodes. No obvious aneurysm. HEART AND VASCULAR STRUCTURES: No aneurysm. No pericardial effusion. UPPER ABDOMEN: No significant findings. Limited exam. THYROID AND OTHER SOFT TISSUES: No masses. No adenopathy. BONES: No significant finding. HARDWARE: None in the chest. OTHER: No other significant findings. IMPRESSION: Stable bilateral emphysematous changes. Stable scarring in the right upper lobe. No ac judy findings. TECHNICAL DOCUMENTATION: JOB ID: [id number] Quality ID # [id number]: Final reports with documentation of one or more dose reduction techniques (e.g., Au tomated exposure control, adjustment of the mA and/or kV according to patient size, use of iterative reconstruction technique) 2010 [employer]- All Rights Reserved Reading location - IP/workstation name: [email or web address]
== END ==
LOC: RAD 10:12
PROVIDERS: ATTEND Internal Medicine Critical Care Medicine
DX: J43.2 Centrilobular emphysema (principal); R91.8 Other nonspecific abnormal finding of lung field
CPT/HCPCS: 71250